=== PATIENT | female | born 1955 | race Caucasian/White ===

== ENCOUNTER 2024-05-10 11:39 | Emergency (ER) | payer MEDICARE, SELFPAY ==
[2024-05-10 11:40] VITALS: BP 159/83; PULSE 97; RESP 18; TEMP 36.4; O2SAT 97; BMI 21.1
[2024-05-10 12:14] LABS: Bacteria 0 SEEN /hpf (None Seen); Mucous, Urine 0 SEEN /hpf (<or=2+); Red Blood Cells-Urine 0 SEEN /hpf (0-5)
[2024-05-10 12:18] LABS: Absolute Lymphocyte Count 2.07 X10^3/uL (0.83-4.51); Basophil# 0.07 X10^3/uL; Basophil% 0.4 % (0-1); Eosinophil# 0.04 X10^3/uL; Eosinophils% 0.2 % (0-5); Hematocrit 36.6 % (37-47); Hemoglobin 12.3 g/dL (12.0-15.0); Lymphocyte # 2.07 X10^3/ul (0.83-4.51); Lymphocyte % 12.5 % (19-41); Mean Corp Hgb Conc 33.6 g/dL (32-36); Mean Corpuscular Hgb 31.8 pg (27.0-32.0); Mean Corpuscular Volume 94.6 fL (81-99); Mean Platelet Vol. 9.6 fl (6.2-12.0); Monocyte# 1.37 X10^3/uL; Monocyte% 8.2 % (0-10); NRBC Flagged by Analyzer 0 % (0-5); Neutrophil # 12.99 X10^3/uL (2.7-7.7); Neutrophil % 78.2 % (47-70); Platelet Count 320 K/mm3 (150-450); RBC Distribution Width CV 12.6 % (11.6-14.6); RBC Distribution Width SD 43.7 fl (35.1-43.9); Red Blood Count 3.87 M/mm3 (4.2-5.4); White Blood Count 16.6 K/mm3 (4.4-11.0)
[2024-05-10 12:19] LABS: Color, Urine Yellow (Yellow); Glucose, Dipstick Normal (Normal); Ketone-Dipstick 15 mg/dl (Negative); Leukocyte Esterase-Dipstick 25 /ul (Negative); Nitrite-Dipstick Negative (Negative); Occult Blood-Urine 10 /ul (Negative); Protein-Dipstick 15 mg/dl (Negative); Urine Bilirubin Dipstick Negative (Negative); Urine Clarity Sl. Cloudy (Clear); Urine Urobilinogen Normal (Normal)
[2024-05-10 12:32] LABS: ALB/GLOB Ratio 0.9 RATIO (0.9-2.4); AST(SGOT) 15 U/L (15-37); Alanine Aminotransfer ALT/SGPT 13 U/L (13-56); Albumin, Serum 3.5 g/dL (3.2-5.0); Alkaline Phosphatase 60 U/L (45-117); Anion Gap 7 (5-15); BUN 16 mg/dL (7-18); BUN/Creat Ratio 20.2 RATIO (10-20); Calcium,Total 9.1 mg/dL (8.5-10.1); Chloride 103 mmol/L (98-107); Creatinine, Serum 0.79 mg/dL (0.55-1.02); EST Glomerular Filtration Rate 76 mL/min (>60); Est Glom Filt Rate - Afr Amer 92 mL/min (>60); Estimated Creatinine Clearance 55.68 ml/min; Globulin 3.8 g/dL (2.2-4.2); Glucose 105 mg/dL (74-106); Potassium 3.7 mmol/L (3.5-5.1); Protein, Total 7.3 g/dL (6.4-8.2); Sodium Level 136 mmol/L (136-145)
[2024-05-10 12:42] LABS: Squamous Epithelial Cells - UA 0-5 SEEN /hpf (5-10); White Blood Cells 0-5 SEEN /hpf (0-5)
--- NOTE | 2024-05-10 13:02 | CT_ITS ---
STUDY: CT ABDOMEN AND PELVIS WITH CONTRAST REASON FOR EXAM: Female, 68 years old. Diffuse abdominal pain. RADIATION DOSAGE (If Supplied By Facility): CTDIvol = ( 9.56 ) mGy, DLP = ( 384.96 ) mGycm TECHNIQUE: Transaxial images were obtained from the dome of the diaphragm to the symphysis pubis without oral contrast. IV 100mL Isovue-370 was administered. Sagittal and coronal images were reconstructed. Individualized dose optimization techniques were used for this CT. COMPARISON: None. FINDINGS: The visualized lung bases are unremarkable. The visualized portions of the heart are within normal limits. Normal liver. Normal gallbladder and extrahepatic biliary system. Normal spleen. Normal pancreas. Normal bilateral adrenal glands. Right renal cysts. A dominant cyst is seen in the lower pole of the right kidney and measures 4.5 cm x 4.3 cm. Small 1 cm cyst in the upper lateral portion of the left kidney. Normal left kidney. Normal visualized stomach. Normal small intestine. Moderate amount of fecal material is seen throughout the colon. The appendix is visualized and appears normal. There is diffuse atherosclerotic calcification of the abdominal aorta and its major visceral branches, without a demonstrated aneurysm. Normal inferior vena cava. Normal retroperitoneum. Distended urinary bladder. Normal abdominal wall. There are diffuse degenerative changes of the visualized lumbar spine. Levoscoliosis. CT/Abdomen/Pelvis W IV Cont ONLY IMPRESSION: Moderate amount of fecal material is seen in the colon. Bilateral renal cysts more prominent on the right side. Electronically Signed: Isra Vásquez MD at 13:33 EDT ,
--- NOTE | 2024-05-10 13:03 | EDS_ITS ---
HPI HPI - GI History of Present Illness Chief Complaint: Abd Pain Narrative Narrative: 68-year-old female presenting with abdominal pain. She points to the lower abdomen in the midline. She states it has been here for several days. She states she has been constipated. She tried a laxative and a home enema and only got this small balls. She states she does not feel sick. She is not nauseous or vomiting. She has not had any fevers. She states that at her job they allow her to take meats and she eats these. She had a steak several days ago prior to the abdominal pain starting. She states it did not smell or taste funny. It was red. She denies any diarrhea, fevers, chills. No black or bloody stools. Her only previous surgery is tubal ligation. [facility] Medical History Hypertension Home Medications ?Medication ?Instructions ?Recorded ?Last Taken ?Type aspirin 81 mg chewable tablet 81 mg PO DAILY@0800 01/08/15 Unknown History azithromycin 250 mg tablet 250 mg PO DAILY ##4 01/08/15 Unknown Rx lisinopril 10 mg tablet 10 mg PO DAILY 01/08/15 Unknown History multivitamin with folic acid 400 1 tab PO DAILY 01/08/15 Unknown History mcg tablet (Thera) Allergy/AdvReac Type Severity Reaction Status Date / Time No Known Allergies Allergy Verified 05/10/24 12:25 Social History Smoking Status: Current every day smoker tobacco type: cigarettes ROS ROS ED Constitutional Constitutional ED: Denies chills, fever(s) or sweats Eyes Eyes: Denies blurry vision or change in vision ENT ENT ED: Denies ear pain or sore throat Cardiovascular Cardiovascular: Denies chest pain, palpitations or racing heartbeat Respiratory/Chest Respiratory/Chest: Denies cough, dyspnea or sputum Gastrointestinal Gastrointestinal: Reports abdominal pain; Denies constipation, diarrhea, nausea or vomiting Genitourinary Genitourinary ED: Denies dysuria, hematuria or urinary frequency Musculoskeletal Musculoskeletal: Denies arthralgias, myalgias or neck pain Integumentary Denies abscess, Abrasions or rash Neurologic Neurologic: Denies headache(s), paresthesias or weakness Psychiatric Psychiatric: Denies anxiety, depression, suicidal ideation or suicidal thoughts Endocrine Endocrinology: Denies polydipsia or polyuria EXAM Physical Exam Const Vital Signs: 05/10/24 11:40 05/10/24 13:39 Temperature 97.6 F L Temperature Source Temporal Pulse Rate 97 76 Respiratory Rate 18 16 Blood Pressure 159/83 H 144/68 H Blood Pressure Mean 108 93 Pulse Ox 97 96 Oxygen Delivery Method Room Air Room Air Positive well nourished General Appearance ED: NAD; Negative for pallor HEENT Reports moist mucous membranes normocephalic and atraumatic Resp normal respiratory effort Cardio regular rate and regular rhythm GI Palpation: tender suprapubic; Negative for guarding, rigid or rebound tenderness present Back/Spine no CVA tenderness Neuro CN's II-XII intact bilaterally Sensorium / Orientation: alert Psych mental status grossly normal Skin General Skin Exam: Negative for jaundice or pallor MDM MDM MDM Narrative Medical decision making narrative: 68-year-old female presenting with abdominal pain patient presenting with right flank pain. Differential includes colitis, diverticulitis, gastritis, constipation, UTI, pyelonephritis, renal calculi, ureteral calculi, bowel obstruction, malignancy, dehydration, electrolyte abnormalities. CBC will be obtained to assess white blood cell count, hemoglobin, platelets. CMP to assess renal function, electrolytes, liver function, glucose. Lipase to assess for p ancreatitis. Urinalysis to assess for UTI. CBC shows leukocytosis of 16.6. Hemoglobin 12.3. Platelets are normal at 320. Renal function electrolytes within normal limits. LFTs are normal. Urinalysis negative for infection. Given the leukocytosis and the abdominal pain I did obtain a CT of the abdomen pelvis which was negative for acute findings other than constipation. Patient counseled on findings. We will give her magnesium citrate for home. Return precautions discussed. Impression: 1. Abdominal pain. 2. Leukocytosis 3. Constipation Lab Data Labs: Laboratory Results - last 24 hr 05/10/24 12:08 WBC 16.6 H RBC 3.87 L Hgb 12.3 Hct 36.6 L MCV 94.6 MCH 31.8 MCHC 33.6 RDW Std Deviation 43.7 RDW Coeff of Nini 12.6 Plt Count 320 MPV 9.6 Immature Gran % (Auto) 0.500 Neut % (Auto) 78.2 H Lymph % (Auto) 12.5 L [place] % (Auto) 8.2 Eos % (Auto) 0.2 Baso % (Auto) 0.4 Absolute Neuts (auto) 13.0 H Absolute Lymphs (auto) 2.07 Nucleated RBC % 0 Sodium 136 Potassium 3.7 Chloride 103 Carbon Dioxide 26.0 Anion Gap 7 BUN 16 Creatinine 0.79 Estim Creat Clear Calc 55.68 Est GFR (MDRD) Af Amer 92 Est GFR (MDRD) Non-Af 76 BUN/Creatinine Ratio 20.2 H Glucose 105 Calcium 9.1 Total Bilirubin 0.40 AST 15 ALT 13 Alkaline Phosphatase 60 Total Protein 7.3 Albumin 3.5 Globulin 3.8 Albumin/Globulin Ratio 0.9 Urine Color Yellow Urine Clarity Sl. Cloudy Urine pH 6.0 Ur Specific [place] 1.010 Urine Protein 15 H Urine Glucose (UA) Normal Urine Ketones 15 H Urine Occult Blood 10 H Urine Nitrite Negative Urine Bilirubin Negative Urine Urobilinogen Normal Ur Leukocyte Esterase 25 H Urine RBC 0 SEEN Urine WBC 0-5 SEEN Ur Squamous Epith Cells 0-5 SEEN Urine Bacteria 0 SEEN Urine Mucus 0 SEEN Radiography Diagnostic Testing: Clinical Impression(s) from Imaging Studies Abdomen/Pelvis CT 05/10/24 13:02 IMPRESSION: Moderate amount of fecal material is seen in the colon. Bilateral renal cysts more prominent on the right side. Electronically Signed: Isra Vásquez MD at 13:33 EDT Reading Location ID and State: [address] [place] [address] , Service support , Discharge Plan Triage Chief Complaint: Abd Pain ED Provider: Luis Alfredo Dx/Rx/DC Orders Instructions: ED Abdominal Pain Unkn Cause Fem, ED Constipation (Adult) Prescriptions: No Action lisinopril 10 MG tablet 10 mg PO DAILY aspirin 81 MG tablet,chewable 81 mg PO DAILY@0800 multivitamin with folic acid [Thera] 1 TABLET tablet 1 tab PO DAILY azithromycin 250 MG tablet 250 mg PO DAILY Qty: 4 0RF Primary Care Provider: Ashley Richardson Referrals: Ashley Richardson MD [Primary Care Provider] - Print Language: [place] African Disposition Disposition: Home, Self Care Discharge Date/Time: 05/10/24 14:19
[2024-05-10 13:39] VITALS: BP 144/68; PULSE 76; RESP 16; O2SAT 96
[2024-05-10] MEDS: Magnesium Citrate 300 ML PO (14:14)
== END 2024-05-10 14:19 | disposition home or self-care (01) ==
PROVIDERS: Emergency Provider Student in an Organized Health Care Education/Training Program; PCP Internal Medicine; Visit Provider Student in an Organized Health Care Education/Training Program
DX: R10.9 Unspecified abdominal pain (principal); D72.829 Elevated white blood cell count, unspecified; K59.00 Constipation, unspecified; I10 Essential (primary) hypertension; F17.210 Nicotine dependence, cigarettes, uncomplicated
CPT/HCPCS: 99283; 74177; 80053; 81001; 85025; J7030; Q9967; A4216

== ENCOUNTER 2024-05-12 10:26 | Inpatient (IN) | payer MEDICARE, SELFPAY ==
[2024-05-12] VITALS (7 sets, daily range): BP systolic 124–159; BP diastolic 62–74; PULSE 65–98; RESP 16–18; TEMP 36.2–37.1; O2SAT 96–100; BMI 20.8; BMI 21.7
--- NOTE | 2024-05-12 10:35 | ED.VIS.GI ---
HPI HPI - GI History of Present Illness Chief Complaint: Abd Pain Informant: patient Abdominal Pain/Flank Pain Onset: Days (2-3) Context: Gradual Onset Timing: Waxes and wanes Quality: Sharp Location: RLQ and LLQ Worsened by: Nothing Relieved by: Nothing Nausea/Vomiting/Emesis GI Symptom: Negative for Nausea or Vomiting Diarrhea/Melena/Hematochezia GI Symptom: Positive for Diarrhea; Negative for Melena or Hematochezia Associated Symptoms Associated Symptoms: Negative for Dysuria, Frequency or Hematuria Narrative Narrative: Patient presents with lower abdominal pain that has been waxing and waning over the past few days. Patient was seen here 2 days ago and was diagnosed with constipation. Patient states she was taking magnesium citrate which has helped with her constipation. Patient states she is now having some diarrhea due to the magnesium citrate. Patient states her pain is mainly over the lower abdomen. Patient states nothing makes it worse and nothing makes it better. Patient describes her pain as sharp. Patient states that sometimes her pain radiates into her back. Patient denies any urinary complaints. [facility] Medical History (Updated 05/12/24 @ 15:[address] Roni Elias DO) Hypertension Home Medications ?Medication ?Instructions ?Recorded ?Last Taken ?Type aspirin 81 mg chewable tablet 81 mg PO DAILY@0800 01/08/15 Unknown History azithromycin 250 mg tablet 250 mg PO DAILY ##4 01/08/15 Unknown Rx lisinopril 10 mg tablet 10 mg PO DAILY 01/08/15 Unknown History multivitamin with folic acid 400 1 tab PO DAILY 01/08/15 Unknown History mcg tablet (Thera) Allergy/AdvReac Type Severity Reaction Status Date / Time No Known Allergies Allergy Verified 05/12/24 10:27 Surgical History (Updated 05/12/24 @ 10:[address] Roni Elias DO) Hx of tubal ligation Social History Smoking Status: Current every day smoker tobacco type: cigarettes ROS ROS ED Constitutional Constitutional ED: Denies chills or fever(s) Eyes Eyes: Denies blurry vision or change in vision ENT ENT ED: Denies rhinorrhea or sore throat Cardiovascular Cardiovascular: Denies chest pain or palpitations Respiratory/Chest Respiratory/Chest: Denies cough or dyspnea Gastrointestinal Gastrointestinal: Reports abdominal pain and diarrhea; Denies melena, nausea or vomiting Genitourinary Genitourinary ED: Denies dysuria or hematuria Musculoskeletal Musculoskeletal: Reports back pain; Denies neck pain Integumentary Denies abscess or rash Neurologic Neurologic: Denies headache(s) or weakness Allergic/Immunologic Allergic/Immunologic ED: Denies mouth swelling or urticaria EXAM Physical Exam Const Vital Signs: 05/12/24 10:27 05/12/24 12:26 05/12/24 14:00 Temperature 97.1 F L Temperature Source Temporal Pulse Rate 98 66 74 Respiratory Rate 18 16 16 Blood Pressure 153/74 H 151/66 H 134/73 H Blood Pressure Mean 100 94 93 Pulse Ox 100 98 97 Oxygen Delivery Method Room Air Room Air Positive well nourished and well developed General Appearance ED: well developed and NAD HEENT Reports moist mucous membranes Neck supple and no JVD Resp normal respiratory effort and clear to auscultation bilaterally Cardio regular rate and regular rhythm GI non-distended Palpation: soft and tender epigastric, LLQ, RLQ, LUQ, RUQ, periumbilical and suprapubic; Negative for guarding or rebound tenderness present Extremity full ROM General Extremety ED: Negative for edema or tenderness General Extremity: Negative for edema Neuro CN's II-XII intact bilaterally, moves all extremities and no sensory deficits noted Sensorium / Orientation: alert Motor Exam: strength 5/5 throughout Psych mental status grossly normal and thought process normal MDM MDM MDM Narrative Medical decision making narrative: Differential diagnosis includes urinary tract infection, ureteral calculus, pyelonephritis, colitis, diverticulitis, pancreatitis, peptic ulcer disease, gastritis, and viral illness. CBC will be obtained to assess for leukocytosis and anemia. Comprehensive metabolic profile will be obtained to assess for hepatic function, renal function, and electrolyte abnormality. Lipase will be obtained to assess for pancreatitis. Urinalysis will be obtained to assess for urinary tract infection and hematuria. Lab Data Attestation: I reviewed the patient's lab results. Lab results narrative: CBC was reviewed. There is a leukocytosis of 20.1. This was increased from previous result. The remainder is within normal limits. Comprehensive metabolic profile was reviewed and was essentially within normal limits. Lipase was reviewed and was normal at 33. Urinalysis was reviewed. There is no evidence of urinary tract infection or hematuria. Labs: Laboratory Results - last 24 hr 05/12/24 05/12/24 10:55 11:28 WBC 20.1 H RBC 4.02 L Hgb 12.7 Hct 37.8 MCV 94.0 MCH 31.6 MCHC 33.6 RDW Std Deviation 43.1 RDW Coeff of Nini 12.3 Plt Count 357 MPV 9.4 Immature Gran % (Auto) 0.700 Neut % (Auto) 79.0 H Lymph % (Auto) 11.5 L [place] % (Auto) 8.2 Eos % (Auto) 0.3 Baso % (Auto) 0.3 Absolute Neuts (auto) 15.8 H Absolute Lymphs (auto) 2.31 Nucleated RBC % 0 Differential Comment Diff Path Review May foll Sodium 135 L Potassium 4.0 Chloride 103 Carbon Dioxide 24.0 Anion Gap 8 BUN 10 Creatinine 0.78 Estim Creat Clear Calc 55.68 Est GFR (MDRD) Af Amer 95 Est GFR (MDRD) Non-Af 78 BUN/Creatinine Ratio 12.9 Glucose 109 H Calcium 8.8 Total Bilirubin 0.40 AST 16 ALT 13 Alkaline Phosphatase 64 Total Protein 6.9 Albumin 3.1 L Globulin 3.8 Albumin/Globulin Ratio 0.8 L Lipase 33 Urine Color Yellow Urine Clarity Clear Urine pH 7.0 Ur Specific [place] 1.005 Urine Protein Negative Urine Glucose (UA) Normal Urine Ketones 15 H Urine Occult Blood Negative Urine Nitrite Negative Urine Bilirubin Negative Urine Urobilinogen Normal Ur Leukocyte Esterase 25 H Urine RBC 0 SEEN Urine WBC 0 SEEN Ur Squamous Epith Cells 0-5 SEEN Urine Bacteria 0 SEEN Urine Mucus 0 SEEN Radiography Diagnostic Testing: Clinical Impression(s) from Imaging Studies Abdomen/Pelvis CT 05/12/24 14:10 IMPRESSION: Findings in keeping with a sigmoid diverticulitis with increased markings within the surrounding peritoneal fat and possible localized fluid-filled bowel loop with diverticula in the rectosigmoid junction. Localized abscess cannot be excluded. This is not accessible percutaneously due to the surrounding presence of bowel loops. Follow-up recommended. No evidence of free fluid. Electronically Signed: Isra Vásquez MD at 14:32 EDT , CT scan of the abdomen pelvis was obtained. There is sigmoid diverticulitis. There is a 2 x 3.6 cm fluid collection within a diverticulum within the rectosigmoid junction. This may represent an abscess. There is no perforation noted. This was interpreted by the radiologist was also independently reviewed by myself. Treatment and Re-Evaluation :: Patient was given IV fluids, morphine, and Zofran. Patient was feeling better on reevaluation. Patient was advised of her findings. Case was discussed with Dr. Liao from general surgery. He recommended starting the patient on Zosyn. This was ordered. He will admit the patient to his service. Patient understood and was agreeable with the plan. All questions were answered. Discharge Plan Triage Chief Complaint: Abd Pain ED Provider: Roni Elias Dx/Rx/DC Orders Clinical Impression: Sigmoid diverticulitis, Abdominal pain, Tobacco use Prescriptions: No Action lisinopril 10 MG tablet 10 mg PO DAILY aspirin 81 MG tablet,chewable 81 mg PO DAILY@0800 multivitamin with folic acid [Thera] 1 TABLET tablet 1 tab PO DAILY azithromycin 250 MG tablet 250 mg PO DAILY Qty: 4 0RF Primary Care Provider: Ashley Richardson Referrals: Ashley Richardson MD [Primary Care Provider] - Print Language: Lithuanian Disposition Disposition: Acute Care [facility]
[2024-05-12 11:04] LABS: Absolute Lymphocyte Count 2.31 X10^3/uL (0.83-4.51); Absolute Neutrophil Count 15.8 X10^3/uL (2.0-7.7); Basophil# 0.07 X10^3/uL; Basophil% 0.3 % (0-1); Eosinophil# 0.07 X10^3/uL; Eosinophils% 0.3 % (0-5); Hematocrit 37.8 % (37-47); Hemoglobin 12.7 g/dL (12.0-15.0); Lymphocyte # 2.31 X10^3/ul (0.83-4.51); Lymphocyte % 11.5 % (19-41); Mean Corp Hgb Conc 33.6 g/dL (32-36); Mean Corpuscular Hgb 31.6 pg (27.0-32.0); Mean Platelet Vol. 9.4 fl (6.2-12.0); Monocyte# 1.64 X10^3/uL; Monocyte% 8.2 % (0-10); NRBC Flagged by Analyzer 0 % (0-5); Neutrophil # 15.83 X10^3/uL (2.7-7.7); POSITIVE DIFFERENTIAL YES; Platelet Count 357 K/mm3 (150-450); RBC Distribution Width CV 12.3 % (11.6-14.6); RBC Distribution Width SD 43.1 fl (35.1-43.9); Red Blood Count 4.02 M/mm3 (4.2-5.4); White Blood Count 20.1 K/mm3 (4.4-11.0)
[2024-05-12] MEDS: Ibuprofen 600 MG Tablet PO (11:07)
[2024-05-12 11:08] LABS: Differential Indicated SCAN CRITERIA MET
[2024-05-12] MEDS: 0.9% Normal Saline (1000mL) 1,000 ML 999 ML IV (11:08)
[2024-05-12 11:24] LABS: ALB/GLOB Ratio 0.8 RATIO (0.9-2.4); AST(SGOT) 16 U/L (15-37); Alanine Aminotransfer ALT/SGPT 13 U/L (13-56); Albumin, Serum 3.1 g/dL (3.2-5.0); Alkaline Phosphatase 64 U/L (45-117); Anion Gap 8 (5-15); BUN 10 mg/dL (7-18); BUN/Creat Ratio 12.9 RATIO (10-20); Calcium,Total 8.8 mg/dL (8.5-10.1); Chloride 103 mmol/L (98-107); Creatinine, Serum 0.78 mg/dL (0.55-1.02); EST Glomerular Filtration Rate 78 mL/min (>60); Est Glom Filt Rate - Afr Amer 95 mL/min (>60); Estimated Creatinine Clearance 55.68 ml/min; Globulin 3.8 g/dL (2.2-4.2); Glucose 109 mg/dL (74-106); Lipase 33 U/L (13-75); Protein, Total 6.9 g/dL (6.4-8.2); Sodium Level 135 mmol/L (136-145)
[2024-05-12 11:35] LABS: Bacteria 0 SEEN /hpf (None Seen); Mucous, Urine 0 SEEN /hpf (<or=2+); Red Blood Cells-Urine 0 SEEN /hpf (0-5); White Blood Cells 0 SEEN /hpf (0-5)
[2024-05-12 11:36] LABS: Color, Urine Yellow (Yellow); Glucose, Dipstick Normal (Normal); Ketone-Dipstick 15 mg/dl (Negative); Leukocyte Esterase-Dipstick 25 /ul (Negative); Nitrite-Dipstick Negative (Negative); Occult Blood-Urine Negative /ul (Negative); Protein-Dipstick Negative (Negative); Specific Gravity, Urine 1.005 (1.002-1.030); Urine Bilirubin Dipstick Negative (Negative); Urine Clarity Clear (Clear); Urine Urobilinogen Normal (Normal)
[2024-05-12 11:43] LABS: Squamous Epithelial Cells - UA 0-5 SEEN /hpf (5-10)
--- NOTE | 2024-05-12 14:10 | CT_ITS ---
STUDY: CT ABDOMEN AND PELVIS WITH CONTRAST REASON FOR EXAM: Female, 68 years old. Abdominal pain, leukocytosis -- IV PO Contrast RADIATION DOSAGE (If Supplied By Facility): CTDIvol = ( 8.81 ) mGy, DLP = ( 368.40 ) mGycm TECHNIQUE: Transaxial images were obtained from the dome of the diaphragm to the symphysis pubis with oral contrast. Oral and amp; IV Gastrografin and amp; 100mL Isovue-300 was administered. Sagittal and coronal images were reconstructed. Individualized dose optimization techniques were used for this CT. COMPARISON: Comparison is made with prior study dated May 10, 2024. FINDINGS: The visualized lung bases are unremarkable. The visualized portions of the heart are within normal limits. Normal liver. Small amount of sludge is seen in the gallbladder lumen. Normal spleen. Normal pancreas. Normal bilateral adrenal glands. Stable 4.5 cm x 6.3 cm cyst in the right kidney. Normal left kidney. Normal visualized stomach. Normal small intestine. There now is evidence of diffuse bowel wall thickening of the sigmoid colon in keeping with sigmoid diverticulitis. Increased markings are seen in the surrounding fat. There is a 2 cm x 3.6 cm fluid collection within a diverticulum in the rectosigmoid junction. This may represent bilateral fluid within a diverticulum. Evidence of diverticular changes The appendix is visualized and appears normal. There is atherosclerotic calcification of the abdominal aorta and its major visceral branches, without a demonstrated aneurysm. Normal inferior vena cava. Normal retroperitoneum. Normal urinary bladder. Normal abdominal wall. There are diffuse degenerative changes of the visualized lumbar spine. CT/Abdomen/Pelvis WITH Contrast IMPRESSION: Findings in keeping with a sigmoid diverticulitis with increased markings within the surrounding peritoneal fat and possible localized fluid-filled bowel loop with diverticula in the rectosigmoid junction. Localized abscess cannot be excluded. This is not accessible percutaneously due to the surrounding presence of bowel loops. Follow-up recommended. No evidence of free fluid. Electronically Signed: Isra Vásquez MD at 14:32 EDT ,
--- NOTE | 2024-05-12 16:18 | HP.PCM.SX_ITS ---
HPI - General HPI Narrative EDA ARREOLA, is a 68 F who presents with abdominal pain of 1 week duration. Patient reports she started having lower abdominal pain a week ago. She was in the emergency room on Wednesday and she was told she had constipation. She tried magnesium citrate at home and over the last 2 days her pain has gotten worse. She denies fevers or chills or nausea or vomiting. She has never had diverticulitis in the past. She has not had a colonoscopy but she does do Cologuard and had 1 last year. REPLACED BY [facility] Medical History (Updated 05/12/24 @ 16:[address] Mariusz Liao MD) Hypertension Home Medications ?Medication ?Instructions ?Recorded ?Last Taken ?Type lisinopril 10 mg tablet 10 mg PO DAILY 01/08/15 05/12/24 History multivitamin with folic acid 400 1 tab PO DAILY 01/08/15 05/11/24 History mcg tablet (Thera) calcium carbonate 600 mg-vitamin 1 cap PO DAILY 05/12/24 05/11/24 History D3 12.5 mcg (500 unit) capsule (Calcium 600 with Vitamin D3) fexofenadine 180 mg tablet 180 mg PO DAILY 05/12/24 05/11/24 History (Winter Allergy) Allergy/AdvReac Type Severity Reaction Status Date / Time No Known Allergies Allergy Verified 05/12/24 10:27 Surgical History (Updated 05/12/24 @ 10:[address] Roni Elias DO) Hx of tubal ligation Social History Smoking Status: Current every day smoker tobacco type: cigarettes ROS Constitutional Constitutional: Reports anorexia; Denies chills, fatigue or fever(s) Eyes Eyes: Denies blurry vision ENT HEENT: Denies abnormal hearing Cardiovascular Cardiovascular: Denies chest pain or chest pain at rest Respiratory/Chest Respiratory/Chest: Denies cough or dyspnea Gastrointestinal Gastrointestinal: Reports abdominal pain and constipation; Denies diarrhea, dysphagia or vomiting Genitourinary Genitourinary: Denies change in urinary stream Musculoskeletal Musculoskeletal: Denies abnormal gait or back pain Integumentary Integumentary: Denies jaundice or new lesions Neurologic Neurologic: Denies abnormal gait or dizziness Psychiatric Psychiatric: Denies depression Endocrine Endocrinology: Denies flushing Hematologic/Lymphatic Hematologic/Lymphatic: Denies easy bleeding Vital Signs Vital Signs Vital Signs: 05/12/24 10:27 05/12/24 12:26 05/12/24 14:00 Temperature 97.1 F L Temperature Source Temporal Pulse Rate 98 66 74 Respiratory Rate 18 16 16 Blood Pressure 153/74 H 151/66 H 134/73 H Blood Pressure Mean 100 94 93 Pulse Ox 100 98 97 Oxygen Delivery Method Room Air Room Air Weight Weight: 117 lb 9.6 oz Body Mass Index (BMI) 20.8 Physical Exam Const oriented x3 and no apparent distress Resp normal respiratory effort Cardio regular rate and regular rhythm GI soft to palpation Palpation: tender suprapubic Extremity normal to inspection Results Lab / Micro Data 05/12/24 10:55 05/12/24 10:55 Labs: Laboratory Results - last 24 hr 05/12/24 10:55: WBC 20.1 H, RBC 4.02 L, Hgb 12.7, Hct 37.8, MCV 94.0, MCH 31.6, MCHC 33.6, RDW Std Deviation 43.1, RDW Coeff of Nini 12.3, Plt Count 357, MPV 9.4, Immature Gran % (Auto) 0.700, Neut % (Auto) 79.0 H, Lymph % (Auto) 11.5 L, [place] % (Auto) 8.2, Eos % (Auto) 0.3, Baso % (Auto) 0.3, Absolute Neuts (auto) 15.8 H, Absolute Lymphs (auto) 2.31, Nucleated RBC % 0, Differential Comment , Diff Path Review March, Sodium 135 L, Potassium 4.0, Chloride 103, Carbon Dioxide 24.0, Anion Gap 8, BUN 10, Creatinine 0.78, Estim Creat Clear Calc 55.68, Est GFR (MDRD) Af Amer 95, Est GFR (MDRD) Non-Af 78, BUN/Creatinine Ratio 12.9, Glucose 109 H, Calcium 8.8, Total Bilirubin 0.40, AST 16, ALT 13, Alkaline Phosphatase 64, Total Protein 6.9, Albumin 3.1 L, Globulin 3.8, Albumin/Globulin Ratio 0.8 L, Lipase 33 05/12/24 11:28: Urine Color Yellow, Urine Clarity Clear, Urine pH 7.0, Ur Specific [place] 1.005, Urine Protein Negative, Urine Glucose (UA) Normal, Urine Ketones 15 H, Urine Occult Blood Negative, Urine Nitrite Negative, Urine Bilirubin Negative, Urine Urobilinogen Normal, Ur Leukocyte Esterase 25 H, Urine RBC 0 SEEN, Urine WBC 0 SEEN, Ur Squamous Epith Cells 0-5 SEEN, Urine Bacteria 0 SEEN, Urine Mucus 0 SEEN Imaging Radiology Impression Abdomen/Pelvis CT 05/12/24 14:10 IMPRESSION: Findings in keeping with a sigmoid diverticulitis with increased markings within the surrounding peritoneal fat and possible localized fluid-filled bowel loop with diverticula in the rectosigmoid junction. Localized abscess cannot be excluded. This is not accessible percutaneously due to the surrounding presence of bowel loops. Follow-up recommended. No evidence of free fluid. Electronically Signed: Isra Vásquez MD at 14:32 EDT , Assessment & Plan Assessment/Plan (1) Diverticulitis of intestine with abscess: QUALIFIERS: Diverticulitis site: large intestine Diverticulitis bleeding: without bleeding Qualified Code(s): K57.20 - Diverticulitis of large intestine with perforation and abscess without bleeding PLAN: The patient is a 68-year-old female who presents with abdominal pain. She had a CT scan 2 days ago and another 1 today. Her white count was 16 2 days ago and is now 20. CT today reveals diverticulitis of the sigmoid colon with abscess. Reviewing the CT scan I do see the fluid collection on the old CT and it appears to have grown. It appears to be about 3 to 4 cm. I believe this may be able to be treated with antibiotics as it is not able to be percutaneously drained. I will admit the patient antibiotics and IV fluids and keep her n.p.o. until her pain resolves. I discussed this with her in detail. I also discussed surgery if necessary. I discussed possibility of having to do a sigmoid colectomy with colostomy if she perforates or become septic. Currently she is mildly tender in the suprapubic area with no guarding or rebound and afebrile. Mariusz Liao MD Pager: [facility] [address] [place] [address], [address] [place] [address] Office:
[2024-05-12] MEDS: Piperacil/Tazobactam 4.5 GM in 0.9% Normal Saline (100mL MB+) 100 ML IV (16:22)
[2024-05-12] MEDS: 0.9% Normal Saline (1000mL) 1,000 ML 125 ML IV (17:15)
[2024-05-12] MEDS: Ketorolac 15 MG/ML Vial IV (17:15)
[2024-05-12] MEDS: 0.9% Saline Lock 10 ML Syringe IV (17:19)
[2024-05-12] MEDS: 0.9% Normal Saline (250mL Bag) 250 ML 15 ML IV (21:23)
[2024-05-12] MEDS: Piperacil/Tazobactam 3.375 GM in 0.9% Normal Saline (50mL MB+) 50 ML IV (21:23)
[2024-05-13] MEDS: 0.9% Normal Saline (1000mL) 1,000 ML 125 ML IV (00:54)
[2024-05-13] MEDS: Ketorolac 15 MG/ML Vial IV ×2 (01:13→22:02)
[2024-05-13 02:05] VITALS: BP 124/71; PULSE 67; RESP 16; TEMP 36.7; O2SAT 95
[2024-05-13] MEDS: Piperacil/Tazobactam 3.375 GM in 0.9% Normal Saline (50mL MB+) 50 ML IV ×3 (05:11→22:02)
[2024-05-13] MEDS: Morphine 2 MG/ML Syringe IV (05:12)
[2024-05-13 08:00] VITALS: BP 125/63; PULSE 82; RESP 18; TEMP 36.6; O2SAT 96
[2024-05-13 08:07] LABS: Absolute Lymphocyte Count 1.75 X10^3/uL (0.83-4.51); Absolute Neutrophil Count 14.7 X10^3/uL (2.0-7.7); Basophil# 0.07 X10^3/uL; Basophil% 0.4 % (0-1); Eosinophil# 0.07 X10^3/uL; Eosinophils% 0.4 % (0-5); Hematocrit 35.6 % (37-47); Hemoglobin 11.3 g/dL (12.0-15.0); Lymphocyte # 1.75 X10^3/ul (0.83-4.51); Lymphocyte % 9.7 % (19-41); Mean Corp Hgb Conc 31.7 g/dL (32-36); Mean Corpuscular Hgb 31.5 pg (27.0-32.0); Mean Corpuscular Volume 99.2 fL (81-99); Mean Platelet Vol. 10.2 fl (6.2-12.0); Monocyte# 1.47 X10^3/uL; Monocyte% 8.1 % (0-10); NRBC Flagged by Analyzer 0 % (0-5); Neutrophil # 14.65 X10^3/uL (2.7-7.7); Neutrophil % 80.9 % (47-70); Platelet Count 343 K/mm3 (150-450); RBC Distribution Width CV 12.2 % (11.6-14.6); RBC Distribution Width SD 44.5 fl (35.1-43.9); Red Blood Count 3.59 M/mm3 (4.2-5.4); White Blood Count 18.1 K/mm3 (4.4-11.0)
[2024-05-13 08:34] LABS: Anion Gap 8 (5-15); BUN 10 mg/dL (7-18); BUN/Creat Ratio 16.6 RATIO (10-20); Chloride 111 mmol/L (98-107); EST Glomerular Filtration Rate 105 mL/min (>60); Est Glom Filt Rate - Afr Amer 127 mL/min (>60); Estimated Creatinine Clearance 53.23 ml/min; Glucose 58 mg/dL (74-106); Magnesium 2.1 mg/dL (1.6-2.6); Phosphorus 3.4 mg/dL (2.5-4.9); Sodium Level 139 mmol/L (136-145)
--- NOTE | 2024-05-13 08:51 | PCM.PN.SRG ---
Subjective Subjective Patient reports she did have a liquid bowel movement but it did hurt to have a bowel movement. She is passing some flatus. She denies nausea or vomiting or fevers or chills. She says the pain is a little bit improved from yesterday. Objective Data Objective Data Vital Signs: Vital Signs Temp Pulse Resp BP Pulse Ox O2 Del Method 98.1 F 67 16 124/71 H 95 Room Air 05/13/24 02:05 05/13/24 02:05 05/13/24 02:05 05/13/24 02:05 05/13/24 02:05 05/13/24 02:05 Oxygen Delivery Method Room Air Weight: 119 lb Body Mass Index (BMI) 21.7 Intake & Output: Intake and Output for Last 24 Hours 05/11/24 05/12/24 05/13/24 23:59 23:59 23:59 Intake Total 1100.5 / 1100.5 1006.25 / 1006.25 Balance 1100.5 / 1100.5 1006.25 / 1006.25 Lab / Micro Data 05/13/24 06:25 05/13/24 06:25 Labs: Laboratory Results - last 24 hr 05/12/24 10:55: WBC 20.1 H, RBC 4.02 L, Hgb 12.7, Hct 37.8, MCV 94.0, MCH 31.6, MCHC 33.6, RDW Std Deviation 43.1, RDW Coeff of Nini 12.3, Plt Count 357, MPV 9.4, Immature Gran % (Auto) 0.700, Neut % (Auto) 79.0 H, Lymph % (Auto) 11.5 L, [place] % (Auto) 8.2, Eos % (Auto) 0.3, Baso % (Auto) 0.3, Absolute Neuts (auto) 15.8 H, Absolute Lymphs (auto) 2.31, Nucleated RBC % 0, Differential Comment , Diff Path Review March, Sodium 135 L, Potassium 4.0, Chloride 103, Carbon Dioxide 24.0, Anion Gap 8, BUN 10, Creatinine 0.78, Estim Creat Clear Calc 55.68, Est GFR (MDRD) Af Amer 95, Est GFR (MDRD) Non-Af 78, BUN/Creatinine Ratio 12.9, Glucose 109 H, Calcium 8.8, Total Bilirubin 0.40, AST 16, ALT 13, Alkaline Phosphatase 64, Total Protein 6.9, Albumin 3.1 L, Globulin 3.8, Albumin/Globulin Ratio 0.8 L, Lipase 33 05/12/24 11:28: Urine Color Yellow, Urine Clarity Clear, Urine pH 7.0, Ur Specific [place] 1.005, Urine Protein Negative, Urine Glucose (UA) Normal, Urine Ketones 15 H, Urine Occult Blood Negative, Urine Nitrite Negative, Urine Bilirubin Negative, Urine Urobilinogen Normal, Ur Leukocyte Esterase 25 H, Urine RBC 0 SEEN, Urine WBC 0 SEEN, Ur Squamous Epith Cells 0-5 SEEN, Urine Bacteria 0 SEEN, Urine Mucus 0 SEEN 05/13/24 06:25: WBC 18.1 H, RBC 3.59 L, Hgb 11.3 L, Hct 35.6 L, MCV 99.2 H D, MCH 31.5, MCHC 31.7 L D, RDW Std Deviation 44.5 H, RDW Coeff of Nini 12.2, Plt Count 343, MPV 10.2, Immature Gran % (Auto) 0.500, Neut % (Auto) 80.9 H, Lymph % (Auto) 9.7 L, [place] % (Auto) 8.1, Eos % (Auto) 0.4, Baso % (Auto) 0.4, Absolute Neuts (auto) 14.7 H, Absolute Lymphs (auto) 1.75, Nucleated RBC % 0, Sodium 139, Potassium 4.0, Chloride 111 H, Carbon Dioxide 20.0 L, Anion Gap 8, BUN 10, Creatinine 0.60, Estim Creat Clear Calc 53.23, Est GFR (MDRD) Af Amer 127, Est GFR (MDRD) Non-Af 105, BUN/Creatinine Ratio 16.6, Glucose 58 L, Calcium 8.0 L, Phosphorus 3.4, Magnesium 2.1 Radiography Diagnostic Testing: Radiology Impression Abdomen/Pelvis CT 05/12/24 14:10 IMPRESSION: Findings in keeping with a sigmoid diverticulitis with increased markings within the surrounding peritoneal fat and possible localized fluid-filled bowel loop with diverticula in the rectosigmoid junction. Localized abscess cannot be excluded. This is not accessible percutaneously due to the surrounding presence of bowel loops. Follow-up recommended. No evidence of free fluid. Electronically Signed: Isra Vásquez MD at 14:32 EDT , Physical Exam Const oriented x3 and no apparent distress Resp normal respiratory effort GI soft to palpation Palpation: tender suprapubic Extremity normal to inspection Assessment & Plan Assessment/Plan (1) Diverticulitis of intestine with abscess: QUALIFIERS: Diverticulitis site: large intestine Diverticulitis bleeding: without bleeding Qualified Code(s): K57.20 - Diverticulitis of large intestine with perforation and abscess without bleeding PLAN: Patient continues to have suprapubic pain but her abdomen is soft and there is no guarding or rebound tenderness. Her white count is slowly coming down. Continue antibiotics and IV fluids with n.p.o. status. Mariusz Liao MD Pager: [facility] [address] [place] [address], [address] [place] [address] Office:
[2024-05-13 09:18] LABS: Bedside Glucose 50 mg/dL (74-106)
[2024-05-13] MEDS: Dextrose 5%/0.9% NaCl 1,000 ML 125 ML IV ×2 (09:20→18:10)
--- NOTE | 2024-05-13 10:00 | CASEMGMT ---
RN?CM?DECONTAMINATOR?CM?to room to meet with patient for initial transition planning/care coordination?assessment.?RN?CM?introduced self and role at [facility].? Pt voices understanding and consents to?assessment?at this time.? Pt resting in bed in no distress at this time.? Pt is A/O at this time and answers all questions appropriately.?? Care providers, pharmacy, and demographics verified/updated at this time. PCP: Dr Richardson Specialists: none Preferred Pharmacy: [facility] [place] [facility] [place] Insurance: [facility] Prescription Benefit:?yes Living Will/HPOA:?Has completed LW and HCPOA, who is her son, Zohaib Arora. Pt states may be able to have these documents brought in to be placed on file. LNOK: SonZohaib. DILLisa Living Arrangements: Lives alone in one-story home w/one step to enter. Independent. Works full-time @ [employer]. Transportation:?Pt states drives self and states no transportation concerns at this time.? DME: ? Denies using any DME and denies needs. She does have a BP machine available. HHC/SNF: No hx of either. Denies need for HHC or OP therapy and no needs identified. Pt wishes to return home and states has no concerns with going home at time of discharge.? PLAN:??Home Ron ESCAMILLAN?RN?CM
[2024-05-13 11:58] LABS: Bedside Glucose 107 mg/dL (74-106)
[2024-05-13] MEDS: 0.9% Saline Lock 10 ML Syringe IV (12:13)
[2024-05-13] MEDS: Morphine 4 MG/ML Syringe IV (12:14)
[2024-05-13] MEDS: Pantoprazole Sodium 40 MG Tablet PO (12:31)
[2024-05-13] MEDS: Enoxaparin 40 MG/0.4 ML Syringe SC (12:31)
[2024-05-13] MEDS: Lisinopril 10 MG Tablet PO (12:31)
[2024-05-13 14:23] VITALS: BP 114/82; PULSE 78; RESP 18; TEMP 36.8; O2SAT 98
[2024-05-13 17:23] LABS: Bedside Glucose 107 mg/dL (74-106)
[2024-05-13 18:09] LABS: Bedside Glucose 118 mg/dL (74-106)
[2024-05-13 21:49] VITALS: BP 129/82; PULSE 69; RESP 18; TEMP 36.8; O2SAT 93
[2024-05-13 22:25] LABS: Bedside Glucose 126 mg/dL (74-106)
[2024-05-14] MEDS: Dextrose 5%/0.9% NaCl 1,000 ML 125 ML IV ×3 (00:50→16:52)
[2024-05-14 04:05] VITALS: BP 129/64; PULSE 74; RESP 18; TEMP 36.4; O2SAT 96
[2024-05-14] MEDS: Ketorolac 15 MG/ML Vial IV (06:30)
[2024-05-14] MEDS: Piperacil/Tazobactam 3.375 GM in 0.9% Normal Saline (50mL MB+) 50 ML IV ×3 (06:30→21:26)
--- NOTE | 2024-05-14 06:49 | PCM.PN.SRG ---
Subjective Subjective Patient reports she is feeling much better. She had a liquid bowel movement overnight. She says that her pain is changed from sharp to more of a dull cramping and has moved upward. She denies nausea or vomiting or fevers or chills overnight. Objective Data Objective Data Vital Signs: Vital Signs Temp Pulse Resp BP Pulse Ox O2 Del Method 97.6 F L 74 18 129/64 H 96 Room Air 05/14/24 04:05 05/14/24 04:05 05/14/24 04:05 05/14/24 04:05 05/14/24 04:05 05/14/24 04:05 Oxygen Delivery Method Room Air Weight: 119 lb 0.794 oz Body Mass Index (BMI) 21.7 Intake & Output: Intake and Output for Last 24 Hours 05/12/24 05/13/24 05/14/24 23:59 23:59 23:59 Intake Total 1100.5 / 1100.5 3545.00 / 3665.00 1003.33 / 1003.33 Balance 1100.5 / 1100.5 3545.00 / 3665.00 1003.33 / 1003.33 Lab / Micro Data 05/13/24 06:25 05/13/24 06:25 Labs: Laboratory Results - last 24 hr 05/13/24 06:25: WBC 18.1 H, RBC 3.59 L, Hgb 11.3 L, Hct 35.6 L, MCV 99.2 H D, MCH 31.5, MCHC 31.7 L D, RDW Std Deviation 44.5 H, RDW Coeff of Nini 12.2, Plt Count 343, MPV 10.2, Immature Gran % (Auto) 0.500, Neut % (Auto) 80.9 H, Lymph % (Auto) 9.7 L, [place] % (Auto) 8.1, Eos % (Auto) 0.4, Baso % (Auto) 0.4, Absolute Neuts (auto) 14.7 H, Absolute Lymphs (auto) 1.75, Nucleated RBC % 0, Sodium 139, Potassium 4.0, Chloride 111 H, Carbon Dioxide 20.0 L, Anion Gap 8, BUN 10, Creatinine 0.60, Estim Creat Clear Calc 53.23, Est GFR (MDRD) Af Amer 127, Est GFR (MDRD) Non-Af 105, BUN/Creatinine Ratio 16.6, Glucose 58 L, Calcium 8.0 L, Phosphorus 3.4, Magnesium 2.1 05/13/24 08:55: POC Glucose 50 L 05/13/24 11:30: POC Glucose 107 H 05/13/24 17:04: POC Glucose 107 H 05/13/24 17:50: POC Glucose 118 H 05/13/24 22:06: POC Glucose 126 H Physical Exam Const oriented x3 and no apparent distress Resp normal respiratory effort Cardio regular rate and regular rhythm GI soft to palpation Palpation: tender suprapubic Assessment & Plan Assessment/Plan (1) Diverticulitis of intestine with abscess: QUALIFIERS: Diverticulitis site: large intestine Diverticulitis bleeding: without bleeding Qualified Code(s): K57.20 - Diverticulitis of large intestine with perforation and abscess without bleeding PLAN: Patient reports improvement in pain. Awaiting morning labs. Continue antibiotics and n.p.o. I will plan for CT scan tomorrow to evaluate. Mariusz Liao MD Pager: [facility] [address] [place] [address], [address] [place] [address] Office:
[2024-05-14 06:50] LABS: Bedside Glucose 118 mg/dL (74-106)
[2024-05-14 07:29] LABS: Absolute Lymphocyte Count 1.56 X10^3/uL (0.83-4.51); Absolute Neutrophil Count 12.7 X10^3/uL (2.0-7.7); Basophil# 0.05 X10^3/uL; Basophil% 0.3 % (0-1); Eosinophil# 0.09 X10^3/uL; Eosinophils% 0.6 % (0-5); Hematocrit 34.4 % (37-47); Hemoglobin 10.9 g/dL (12.0-15.0); Lymphocyte # 1.56 X10^3/ul (0.83-4.51); Lymphocyte % 9.8 % (19-41); Mean Corp Hgb Conc 31.7 g/dL (32-36); Mean Corpuscular Hgb 31.5 pg (27.0-32.0); Mean Corpuscular Volume 99.4 fL (81-99); Monocyte% 9.4 % (0-10); NRBC Flagged by Analyzer 0 % (0-5); Neutrophil # 12.65 X10^3/uL (2.7-7.7); Neutrophil % 79.3 % (47-70); Platelet Count 349 K/mm3 (150-450); RBC Distribution Width CV 12.5 % (11.6-14.6); RBC Distribution Width SD 45.5 fl (35.1-43.9); Red Blood Count 3.46 M/mm3 (4.2-5.4)
[2024-05-14 08:00] VITALS: BP 117/61; PULSE 68; RESP 18; TEMP 37; O2SAT 96
[2024-05-14 08:00] LABS: Anion Gap 4 (5-15); BUN 7 mg/dL (7-18); BUN/Creat Ratio 10.8 RATIO (10-20); Calcium,Total 8.1 mg/dL (8.5-10.1); Chloride 113 mmol/L (98-107); Creatinine, Serum 0.65 mg/dL (0.55-1.02); EST Glomerular Filtration Rate 96 mL/min (>60); Est Glom Filt Rate - Afr Amer 116 mL/min (>60); Estimated Creatinine Clearance 53.23 ml/min; Glucose 123 mg/dL (74-106); Potassium 3.4 mmol/L (3.5-5.1); Sodium Level 139 mmol/L (136-145)
[2024-05-14] MEDS: Enoxaparin 40 MG/0.4 ML Syringe SC (08:20)
[2024-05-14] MEDS: Pantoprazole Sodium 40 MG Tablet PO (08:20)
[2024-05-14] MEDS: Lisinopril 10 MG Tablet PO (08:20)
[2024-05-14] MEDS: Morphine 2 MG/ML Syringe IV ×2 (09:32→21:30)
[2024-05-14] MEDS: 0.9% Saline Lock 10 ML Syringe IV ×2 (09:33→15:40)
[2024-05-14 12:11] LABS: Bedside Glucose 115 mg/dL (74-106)
[2024-05-14] MEDS: Morphine 4 MG/ML Syringe IV (15:39)
[2024-05-14] MEDS: Acetaminophen 325 MG Tablet 650 MG PO (15:39)
[2024-05-14 15:42] VITALS: BP 140/69; PULSE 84; RESP 18; TEMP 37.7; O2SAT 98
[2024-05-14 17:00] VITALS: TEMP 37.1
[2024-05-14 21:22] VITALS: BP 134/94; PULSE 73; RESP 18; TEMP 36.9; O2SAT 93
[2024-05-15] VITALS (14 sets, daily range): BP systolic 111–158; BP diastolic 65–97; PULSE 67–106; RESP 14–20; TEMP 36.7–37.3; O2SAT 92–100; BMI 21.7
[2024-05-15] MEDS: Dextrose 5%/0.9% NaCl 1,000 ML 125 ML IV ×2 (00:17→08:16)
[2024-05-15] MEDS: Acetaminophen 325 MG Tablet 650 MG PO (00:20)
[2024-05-15 00:41] LABS: Bedside Glucose 129 mg/dL (74-106)
[2024-05-15] MEDS: Piperacil/Tazobactam 3.375 GM in 0.9% Normal Saline (50mL MB+) 50 ML IV ×3 (05:56→22:12)
[2024-05-15 06:10] LABS: Absolute Lymphocyte Count 1.81 X10^3/uL (0.83-4.51); Absolute Neutrophil Count 14.8 X10^3/uL (2.0-7.7); Basophil# 0.06 X10^3/uL; Basophil% 0.3 % (0-1); Eosinophil# 0.12 X10^3/uL; Eosinophils% 0.7 % (0-5); Hematocrit 34.3 % (37-47); Hemoglobin 10.8 g/dL (12.0-15.0); Lymphocyte # 1.81 X10^3/ul (0.83-4.51); Lymphocyte % 9.8 % (19-41); Mean Corp Hgb Conc 31.5 g/dL (32-36); Mean Corpuscular Hgb 31.4 pg (27.0-32.0); Mean Corpuscular Volume 99.7 fL (81-99); Mean Platelet Vol. 9.8 fl (6.2-12.0); Monocyte# 1.52 X10^3/uL; Monocyte% 8.3 % (0-10); NRBC Flagged by Analyzer 0 % (0-5); Neutrophil # 14.75 X10^3/uL (2.7-7.7); Neutrophil % 80.2 % (47-70); POSITIVE DIFFERENTIAL YES; Platelet Count 351 K/mm3 (150-450); RBC Distribution Width CV 12.4 % (11.6-14.6); RBC Distribution Width SD 45.2 fl (35.1-43.9); Red Blood Count 3.44 M/mm3 (4.2-5.4); White Blood Count 18.4 K/mm3 (4.4-11.0)
[2024-05-15 06:15] LABS: Differential Indicated SCAN CRITERIA MET
[2024-05-15 06:27] LABS: Anion Gap 5 (5-15); BUN 6 mg/dL (7-18); BUN/Creat Ratio 10.4 RATIO (10-20); Calcium,Total 8.3 mg/dL (8.5-10.1); Chloride 116 mmol/L (98-107); Creatinine, Serum 0.58 mg/dL (0.55-1.02); EST Glomerular Filtration Rate 110 mL/min (>60); Est Glom Filt Rate - Afr Amer 133 mL/min (>60); Estimated Creatinine Clearance 53.23 ml/min; Glucose 113 mg/dL (74-106); Potassium 3.5 mmol/L (3.5-5.1); Sodium Level 142 mmol/L (136-145)
[2024-05-15 06:32] LABS: Bedside Glucose 110 mg/dL (74-106)
[2024-05-15] MEDS: Morphine 2 MG/ML Syringe IV ×2 (06:53→10:42)
--- NOTE | 2024-05-15 08:00 | CT_ITS ---
We are attempting to reach an attending provider to discuss findings. An addendum with communication details will be sent when the communication is complete. STUDY: CT ABDOMEN AND PELVIS WITH CONTRAST REASON FOR EXAM: Female, 68 years old. follow up diverticular abscess -- PO and IV contrast RADIATION DOSAGE (If Supplied By Facility): CTDIvol = ( 14.18 ) mGy, DLP = ( 499.46 ) mGycm TECHNIQUE: Transaxial images were obtained from the dome of the diaphragm to the symphysis pubis with oral contrast. 100 CC ISOVUE 370 was administered. Sagittal and coronal images were reconstructed. Individualized dose optimization techniques were used for this CT. COMPARISON: 05/12/2024 FINDINGS: Small bilateral pleural effusions with bibasilar atelectasis. The visualized portions of the heart are within normal limits. Tiny amount of ascites. Normal liver. Normal gallbladder and extrahepatic biliary system. Normal spleen. Normal pancreas. Normal bilateral adrenal glands. No change in a 4 cm cyst lower pole right kidney. Normal left kidney. Normal visualized stomach. Normal small intestine. There is diverticulosis, with thickening of the colon wall, and pericolonic inflammation changes consistent with acute diverticulitis. Interval increase in the size of the peripherally enhancing fluid collection with an air-fluid level just superior to the inflamed segment of sigmoid colon consistent with an abscess from 2.5 x 3.5 cm to 3.5 x 4.5 cm. There is non-visualization of the appendix. Normal abdominal aorta. Normal inferior vena cava. Normal retroperitoneum. Normal urinary bladder. Edema of the abdominal wall suggestive of anasarca. Mild levoscoliosis lumbar spine with degenerative disc disease. CT/Abdomen/Pelvis WITH Contrast IMPRESSION: 1. Continued sigmoid diverticulitis with enlarging abscess as described above. 2. Volume overload with bilateral pleural effusions, tiny amount of ascites, and anasarca. Electronically Signed: Enoc Cabello MD at 8:57 EDT ,
[2024-05-15] MEDS: Pantoprazole Sodium 40 MG Tablet PO (08:16)
[2024-05-15] MEDS: Enoxaparin 40 MG/0.4 ML Syringe SC (08:16)
[2024-05-15] MEDS: Lisinopril 10 MG Tablet PO (08:17)
--- NOTE | 2024-05-15 09:29 | PN.SURG_ITS ---
Subjective Subjective Patient had low-grade fever overnight. She is still having lower abdominal pain. Objective Data Objective Data Vital Signs: Vital Signs Temp Pulse Resp BP Pulse Ox O2 Del Method 98.6 F 71 16 137/68 H 93 Room Air 05/15/24 04:30 05/15/24 04:30 05/15/24 04:30 05/15/24 04:30 05/15/24 04:30 05/15/24 04:30 Oxygen Delivery Method Room Air Weight: 119 lb 0.794 oz Body Mass Index (BMI) 21.7 Intake & Output: Intake and Output for Last 24 Hours 05/13/24 05/14/24 05/15/24 23:59 23:59 23:59 Intake Total 3545.00 / 3665.00 3675.41 / 3915.41 2335.00 / 2335.00 Balance 3545.00 / 3665.00 3675.41 / 3915.41 2335.00 / 2335.00 Lab / Micro Data 05/15/24 05:43 05/15/24 05:43 Labs: Laboratory Results - last 24 hr 05/14/24 11:53: POC Glucose 115 H 05/15/24 00:17: POC Glucose 129 H 05/15/24 05:43: WBC 18.4 H, RBC 3.44 L, Hgb 10.8 L, Hct 34.3 L, MCV 99.7 H, MCH 31.4, MCHC 31.5 L, RDW Std Deviation 45.2 H, RDW Coeff of Nini 12.4, Plt Count 351, MPV 9.8, Immature Gran % (Auto) 0.700, Neut % (Auto) 80.2 H, Lymph % (Auto) 9.8 L, [place] % (Auto) 8.3, Eos % (Auto) 0.7, Baso % (Auto) 0.3, Absolute Neuts (auto) 14.8 H, Absolute Lymphs (auto) 1.81, Nucleated RBC % 0, Differential Comment , Diff Path Review March, Sodium 142, Potassium 3.5, Chloride 116 H, Carbon Dioxide 21.0, Anion Gap 5, BUN 6 L, Creatinine 0.58, Estim Creat Clear Calc 53.23, Est GFR (MDRD) Af Amer 133, Est GFR (MDRD) Non-Af 110, BUN/Creatinine Ratio 10.4, Glucose 113 H, Calcium 8.3 L 05/15/24 05:55: POC Glucose 110 H Radiography Diagnostic Testing: Radiology Impression Abdomen/Pelvis CT 05/15/24 08:00 IMPRESSION: 1. Continued sigmoid diverticulitis with enlarging abscess as described above. 2. Volume overload with bilateral pleural effusions, tiny amount of ascites, and anasarca. Electronically Signed: Enoc Cabello MD at 8:57 EDT , ADDENDUM: 05/15/24 0916 IMPRESSION: 1. Continued sigmoid diverticulitis with enlarging abscess as described above. 2. Volume overload with bilateral pleural effusions, tiny amount of ascites, and anasarca. N.B. : The above Results were Read Back by Enoc Cabello MD to Katie Gupta RN, and understanding confirmed on 05/15/2024 09:09:18 (ET). Electronically Signed: Enoc Cabello MD at 8:57 EDT , Physical Exam Const oriented x3 and no apparent distress Resp normal respiratory effort GI soft to palpation Palpation: tender suprapubic Extremity normal to inspection Assessment & Plan Assessment/Plan (1) Diverticulitis of intestine with abscess: QUALIFIERS: Diverticulitis site: large intestine Diverticulitis bleeding: without bleeding Qualified Code(s): K57.20 - Diverticulitis of large intestine with perforation and abscess without bleeding PLAN: The patient has worsening abscess on repeat CT this morning. Her white count is still markedly elevated. She is still having pain. At this point I feel like she has failed conservative therapy and I recommend sigmoid colectomy. I will take her afternoon for laparoscopic sigmoid colectomy with hopeful anastomosis. I also discussed having to place a temporary stoma or diverting ileostomy. Patient understands and is willing to proceed. I discussed the risks including but not limited to bleeding, infection, injury to underlying organs, need for colostomy, need for open surgery. Patient understands and wants to proceed. Mariusz Liao MD Pager: [facility] [address] [place] [address] [address] [place] [address] Office:
[2024-05-15 11:58] LABS: Bedside Glucose 121 mg/dL (74-106)
--- NOTE | 2024-05-15 14:03 | CASEMGMT ---
ASAEL ANDERSEN into pt room as pt nurse reported pt has questions. Pt has visitor at bedside. Pt and visitor asking if she has an ostomy would there be someone coming to the home for care. Discussed HHC and the possibility of this should she need it. Pt is aware that ASAEL ANDERSEN will follow after surgery to discuss needs. Pt and visitor thankful and denies further questions.
--- NOTE | 2024-05-15 14:14 | NURSING ---
pt off floor for surgery
[2024-05-15] MEDS: 0.9% Normal Saline (1000mL) 1,000 ML 15 ML IV ×3 (14:30→18:37)
[2024-05-15 14:56] LABS: Pathologist Review Reviewed
--- NOTE | 2024-05-15 15:06 | PCM.PRE.AN2 ---
ASA Classification* ASA Classification ASA Classification: 2 and E Assessment & Plan Anesthesia* Anesthesia Assessment Anesthesia Assessment: Discussed sedation and/or anesthesia options, risks, benefits, and alternatives with patient/parents/legal guardian/POA. Questions invited. The patient/parents/legal guardian/POA seems to understand and agrees to proceed with anesthesia plan. Reviewed the physical assessment, medical history, allergy history and patient home medications list prior to surgery/procedure/anesthetic and documented any changes. Performed airway and anesthesia risk assessments. Anesthesia Type Anesthesia Type: General History Source History Obtained from:: Patient and Chart Anesthesia Focused Assessment* Temperature: 98.8 F Pulse Rate: 88 Blood Pressure: 132/76 Respiratory Rate: 16 Pulse Ox: 96 Oxygen Delivery Method: Room Air Airway Assessment Mouth opens: >3 cm Mallampati Score: III Teeth Condition: Caps/Crowns (#8. #9 are capped. Tight ) Neck Range of motion (ROM): Full ROM Focused Labs Anesthesia Preop lab: CBC WBC 18.4 K/mm3 (4.4-11.0) H 05/15/24 05:43 RBC 3.44 M/mm3 (4.2-5.4) L 05/15/24 05:43 Hgb 10.8 g/dL (12.0-15.0) L 05/15/24 05:43 Hct 34.3 % (37-47) L 05/15/24 05:43 Plt Count 351 K/mm3 (150-450) 05/15/24 05:43 CHEMISTRY Potassium 3.5 mmol/L (3.5-5.1) 05/15/24 05:43 Sodium 142 mmol/L (136-145) 05/15/24 05:43 Magnesium 2.1 mg/dL (1.6-2.6) 05/13/24 06:25 Phosphorus 3.4 mg/dL (2.5-4.9) 05/13/24 06:25 BUN 6 mg/dL (7-18) L 05/15/24 05:43 Creatinine 0.58 mg/dL (0.55-1.02) 05/15/24 05:43 Glucose 113 mg/dL (74-106) H 05/15/24 05:43 POC Glucose 121 mg/dL (74-106) H 05/15/24 11:41 COAG Pre-Assessment Diagnosis/Proposed Procedure Planned Operative Procedure(s): Laparoscopic sigmoid colectomy, possible open, possible stoma Anesthesia History Anesthesia History - director pharmacology: Anesthesia History - director pharmacology Hx Hospitalization Any Problems With Anesthesia No 05/15/24 10:35 Cholinesterase deficiency You/Your Family Experience fever (hyperthermia) with Relationship Recent Exposure to Contagious Disease Does patient have nerve No 05/15/24 10:35 stimulator Patient instructed to have device shut off --Does patient have Pacemaker No 05/15/24 10:35 or ICD? When Was Last Pacemaker Check QUESTION #4 FULL TEXT: You/Your Family Experience fever (hyperthermia) with Anesthesia Last Oral Intake Last Oral intake: Last Oral Intake NPO since 10:00 05/15/24 10:35 Meds taken in AM with sips of Yes 05/15/24 10:35 water? Meds patient instructed to protonix 05/15/24 10:35 take am of surgery PONV PONV - director pharmacology: PONV - director pharmacology Female HX of Motion Sickness HX of N/V After Surgery Non-Smoker Duration of Surgery greater than 60 minutes Number of Risk Factors PONV Score Height & Weight Height & Weight: Anesthesia: Height & Weight Height 5 ft 2 in 05/15/24 13:34 Weight: 54 kg 05/15/24 13:34 Body Mass Index (BMI) 21.7 05/15/24 10:35 Respiratory Assessment Respiratory Assessment - director pharmacology: Respiratory Tract Infection Hx - director pharmacology Hx Respiratory Tract Infection Any additional information?: Yes Hx Respiratory Tract Infection: No STOP Sleep Apnea STOP Sleep Apnea - director pharmacology: STOP Sleep Apnea - director pharmacology Hx Hypertension Yes 05/12/24 16:46 Hx Sleep Apnea No 05/12/24 16:46 CPAP BIPAP Do you snore loudly (louder No 05/12/24 16:46 than talking or can be heard Do you often feel tired/ No 05/12/24 16:46 fatigued/ sleepy during daytime? Has anyone observed you stop No 05/12/24 16:46 breathing during sleep? STOP Results Negative 05/12/24 16:46 QUESTION #5 FULL TEXT : Do you snore loudly (louder than talking or can be heard through closed doors)? 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 Specify any problems Hx of Preganancy in last 3 No 05/12/24 16:46 Months Nurse Filling Out Transfusion TCLEVIDEN 05/12/24 16:46 & Questions: Date: 05/12/24 05/12/24 16:46 Time: 16:51 05/12/24 16:46 Patient unable to answer at this time (ie. confused, unrespo /Reproduction History /Reproductive History - director pharmacology: /Reproductive Hx- director pharmacology Hx Now No 05/15/24 10:35 Gestational Age (in weeks): EDC: Hx Hx Para Hx Section SAB Active Medications Active Medications: Current Medications Generic Name Dose Route Start Last Admin Trade Name Freq PRN Reason Stop Dose Admin Acetaminophen 650 mg 05/12/24 16:56 05/15/24 00:20 Acetaminophen 325 Mg Tablet PO 650 mg Q4H PRN PRN Administration Pain 1-10 or Fever Enoxaparin Sodium 40 mg 05/13/24 10:00 05/15/24 08:16 Enoxaparin 40 Mg/0.4 Ml Syringe SC 40 mg DAILY ANDREW Administration Glucagon 1 mg 05/13/24 09:14 Glucagon 1 Mg/Ml Syringe IM X1 PRN Hypoglycemia Protocol Sodium Chloride 250 mls @ 15 mls/hr 05/12/24 16:49 05/14/24 20:13 IV Infused .[id number] PRN Infusion Additional IVPB Infusion Sodium Chloride 250 mls @ 15 mls/hr 05/12/24 16:49 IV .[id number] PRN Saline Flush Piperacillin Sod/Tazobactam 50 mls @ 12.5 mls/hr 05/12/24 22:00 05/15/24 14:30 Sod 3.375 gm/ Sodium Chloride IV 12.5 mls/hr Q8 ANDREW Administration Dextrose/Sodium Chloride 1,000 mls @ 125 mls/hr 05/13/24 09:15 05/15/24 08:16 Dextrose 5%/0.9% Nacl IV 125 mls/hr .Q8H ANDREW Administration Dextrose 250 mls @ 0 mls/hr 05/13/24 09:14 Dextrose 10%-Water IV .Q0M PRN HYPOGLYCEMIA Protocol As Directed Sodium Chloride 1,000 mls @ 15 mls/hr 05/15/24 14:30 05/15/24 14:30 IV 15 mls/hr .Q48H ANDREW Administration Lisinopril 10 mg 05/13/24 10:00 05/15/24 08:17 Lisinopril 10 Mg Tablet PO 10 mg DAILY ANDREW Administration Protocol Loratadine 10 mg 05/13/24 10:00 05/15/24 08:16 Loratadine 10 Mg Tablet PO Not Given DAILY ANDREW Morphine Sulfate 2 - 4 mg 05/12/24 16:56 05/15/24 10:42 Morphine 2 Mg/Ml Syringe IV 2 mg Q2H PRN PRN Administration Pain Score 4-10 Morphine Sulfate 2 - 4 mg 05/12/24 17:03 05/14/24 15:39 Morphine 4 Mg/Ml Syringe IV 4 mg Q2H PRN PRN Administration Pain Score 4-10 Ondansetron HCl 4 mg 05/12/24 16:56 Ondansetron 4 Mg/2 Ml Vial IV Q6H PRN PRN NAUSEA/VOMITING Oxycodone HCl 10 mg 05/13/24 12:22 Oxycodone 5 Mg Tablet PO Q6H PRN PRN Pain Score 1-10 Pantoprazole Sodium 40 mg 05/13/24 10:00 05/15/24 08:16 Pantoprazole Sodium 40 Mg Tablet PO 40 mg DAILY ANDREW Administration Sodium Chloride 10 - 40 ml 05/12/24 16:49 05/14/24 15:40 0.9% Saline Lock 10 Ml Syringe IV 10 ml UD PRN Administration SALINE FLUSH Sodium Chloride 10 - 40 ml 05/12/24 16:56 0.9% Saline Lock 10 Ml Syringe IV UD PRN SALINE FLUSH Sodium Chloride 10 - 40 ml 05/12/24 16:56 0.9% Saline Lock 10 Ml Syringe IV UD PRN SALINE FLUSH [facility] Medical History Hypertension Home Medications ?Medication ?Instructions ?Recorded ?Last Taken ?Type lisinopril 10 mg tablet 10 mg PO DAILY 01/08/15 05/12/24 History multivitamin with folic acid 400 1 tab PO DAILY 01/08/15 05/11/24 History mcg tablet (Thera) calcium carbonate 600 mg-vitamin 1 cap PO DAILY 05/12/24 05/11/24 History D3 12.5 mcg (500 unit) capsule (Calcium 600 with Vitamin D3) fexofenadine 180 mg tablet 180 mg PO DAILY 05/12/24 05/11/24 History (Winter Allergy) Allergy/AdvReac Type Severity Reaction Status Date / Time No Known Allergies Allergy Verified 05/12/24 10:27 Surgical History Hx of tubal ligation Social History Smoking Status: Current every day smoker tobacco type: cigarettes Review of Systems (Anesthesia) ROS Narrative System reviewed and no additional complaints, except as documented.
[2024-05-15 15:17] LABS: Pathologist Review Reviewed
--- NOTE | 2024-05-15 16:00 | COL_PTH ---
PATIENT: EDA ARREOLA LOC: MS3 U#:[id number] AGE/SX: 68/F ROOM: [facility] [place] RE05/12/[address]: Dr. Mariusz Liao MD : 1955 BED: 1 DIS: 05/22/2024 SPEC #: [id number] RECD: 05/16/24 10:48 STATUS: TJ MORA #: [id number] RICHAR: 05/15/24 16:[address]: Mariusz Liao DEPT: SURGICAL PATHOLOGY RECD BY: Thuan Mcnair ENTERED: 05/16/24 11:20 SP TYPE: COLON OTHR DR: Dr. Ashley Richardson MD Tissues: A - Colon, NOS B - Colon Donuts Procedures: Surgery Specimen Level III Surgery Specimen Level V HEADER OPERATION: Laparoscopic converted to open sigmoid colectomy with Sharri PRE-OP DIAGNOSIS: Diverticulitis of intestine with abscess TISSUE SUBMITTED: A- Sigmoid colon, B- Distal and proximal donuts MICROSCOPIC DIAGNOSIS A. Sigmoid colon, colectomy: Diverticulosis and diverticulitis with focal area of diverticular rupture and abscess formation. Four small benign pericolonic lymph nodes. B. Distal and proximal donuts: Colonic donuts, no pathologic diagnosis. Two benign pericolonic lymph nodes. / 05/18/2024 MICROSCOPIC DESCRIPTION Slides are reviewed. GROSS DESCRIPTION A. Received in fixative is one container labeled with the patient's name and designated Sigmoid colon. The specimen consists of a segment of colon with attached pericolonic adipose tissue measuring 15.0cm in length. Both resection margins are stapled. No mucosal lesion is identified. Sections reveal multiple diverticula with focal area of rupture. Serosal surface is congested, hemorrhagic and covered with gresham purulent material in this area. This area is present 5.0cm away from the one resection margin. Section of pericolonic adipose tissue do not reveal any obvious enlarged lymph node. Also present in the container is a smaller segment of colon measuring 2.5cm in length. Both resection margins are stapled. No mucosal lesion is identified. Medical Technologist Chief sections are submitted in eight cassettes as follows: 1-detached smaller segment of bowel, 2-8- larger segment of bowel (2- resection margins, 7-0-brqnwitexha with rupture, 6 and 7- more sections of diverticula, 8- pericolonic adipose tissue). B. Received in fixative is one container labeled with the patient's name and designated Distal and proximal donut. The specimen consists of are two donut shaped pieces of bowel tissue measuring 2.0 x 1.5 x 1.0cm and 1.5 x 1.3 x 1.0cm. Sections do not reveal any mass lesions. One of the donuts show sutures. Medical Technologist Chief sections are submitted in two cassettes. 1- donut with suture, 2- donut without suture. Gloria 05/17/2024 TC:5 CPT:[id number]
--- NOTE | 2024-05-15 18:01 | OP.PCM_ITS ---
Report of Operation Date of Procedure: 05/15/24 Pre-Operative Diagnosis: Sigmoid diverticulitis with abscess Post-Operative Diagnosis: Same Surgery/Procedure Performed:: Laparoscopic converted to open sigmoid colectomy with anastomosis Type of Anesthesia: General/Regional Specimen's removed: Sigmoid colon Drains: BHAKTI to bulb suction Estimated Blood Loss (mL): 30 Description of Procedure: Patient was brought back to the operating room and general anesthesia was induced. A Salomon catheter was placed. After placing the patient in lithotomy position the abdomen was prepped and draped in usual sterile fashion as well as the perineum. Next a midline incision was made superior to the umbilicus and deepened to the fascia which was elevated and incised. A 12 mm port was placed into the abdomen and the abdomen was insufflated. Under direct visualization a tap block was performed bilaterally using a mixture of Marcaine and Exparel and saline. Next under direct visualization a 12 mm port was placed in the right lower quadrant and a 5 mm port was placed in the right upper quadrant. Using atraumatic graspers the small bowel was retracted medially and superiorly. The descending colon was identified and was traced down to the sigmoid colon which was stuck in the pelvis. I tried to mobilize the sigmoid colon laparoscopically but it was too adherent to the tissue in the pelvis near the abscess. The decision was made to convert to open. A midline incision was made inferior to the umbilicus and deepened to the fascia which was incised. After the peritoneum was opened a large wound protector was placed. The small bowel was packed to the superior abdomen and the colon was identified. Using finger fracture the colon was able to be mobilized from the surrounding adherent tissue. The abscess was identified. Distal to the inflamed segment of colon there was healthy rectum. A LEV stapler was used to come across the sigmoid j ust proximal to the rectum. In the same fashion a LEV stapler was used to take the sigmoid colon proximally before the inflammation. The pelvis was irrigated and suctioned dry and hemostasis was obtained use electrocautery. Next a sizer was used on the rectum and I was able to get all the way to the staple line using a 29 sizer. Next I changed my gown and gloves and then return to the abdomen. The distal descending colon staple line was removed sharply and then a 29 EEA anvil was placed into the lumen and a pursestring with 0 Prolene suture was performed. Next the school bus driver/teacher assistant went down and placed the stapler which was well-lubricated into the rectum and it was guided up to the staple line. There was still a little bit of inflammation on the anterior rectum so the posterior rectum was used to bring the point of the stapler out and then the anvil was placed on it and it was retracted and fired. Next the stapler was removed in entirety and the donuts were intact. The abdomen was filled with saline and then a leak test was performed. Air was pumped into the rectum using a rigid sigmoidoscope and the descending colon was clamped with my fingers. There was no leak and the anastomosis appeared healthy and intact. The abdomen was suctioned dry. Next a drain was placed through the right lower quadrant incision into the pelvis. The fascia at the incision was closed with 0 Vicryl suture and then the skin was closed with 0 Vicryl as well. The drain was then sutured to the skin using 3-0 nylon suture. The upper midline incision fascia was closed with interrupted 0 Vicryl sutures. All of the incisions were injected with local anesthetic. The skin was closed over the laparoscopic sites with 4-0 Monocryl suture. The skin was loosely approximated in the midline incision using 4-0 Monocryl suture and some Steri-Strips. A bandage was applied and BHAKTI was placed to bulb suction. Patient was taken to PACU in stable condition. Admit VTE Documentation VTE Mechan Device Prophylaxis: SCD's
--- NOTE | 2024-05-15 18:11 | PCM.POST.ANE ---
Anesthesia: Postop Eval I Current Vital Signs Temperature: 98.7 F Pulse Rate: 103 Blood Pressure: 148/89 Respiratory Rate: 14 Pulse Ox: 100 Oxygen Delivery Method: Room Air Assessment Airway patent: Yes Spontaneous unlabored respirations: Yes Mental status: Awake and Calm nausea: No Vomiting: No Anesthesia Complication: No Fluid Hydration Crystalloid volume administer (ml): 1,000 Total IV fluid infused: 1,000 Progress Note Anesthesia document: Postop Eval 1 completed: Yes
[2024-05-15] MEDS: 0.9% Normal Saline (Pres. free 10 ML Vial (18:14)
[2024-05-15] MEDS: BUPIVACAINE LIPOSOME/PF 20 ML VIAL OPERA.SITE (18:16)
[2024-05-15] MEDS: Bupivacaine 0.25% 30 ML Vial (18:17)
--- NOTE | 2024-05-15 18:30 | SUR.PHASEI ---
RESTING QUIETLY, NO S/S DISTRESS, FACE NEUTRAL, BP & HR IMPROVING. WHEN ASKED IF HAVING PAIN, STATES IT'S 10/10; IT'S MORE THAN IT WAS BEFORE...I HAVE A HIGH PAIN TOLERANCE SO IT'S HIGHER THAN OTHERS [PEOPLE]. REVIEWED PAIN SCALE.
[2024-05-15 19:05] LABS: Bedside Glucose 129 mg/dL (74-106)
[2024-05-15] MEDS: Morphine 4 MG/ML Syringe IV ×2 (20:29→23:40)
[2024-05-15] MEDS: Ondansetron 4 MG/2 ML Vial IV (20:29)
[2024-05-15] MEDS: Dextrose 5%/0.9% NaCl 1,000 ML 60 ML IV (22:13)
[2024-05-16 00:43] LABS: Bedside Glucose 143 mg/dL (74-106)
[2024-05-16 03:02] VITALS: BP 120/69; PULSE 60; RESP 14; TEMP 36.8; O2SAT 96
[2024-05-16] MEDS: Acetaminophen 325 MG Tablet 650 MG PO ×4 (03:04→22:03)
[2024-05-16] MEDS: oxyCODONE 5 MG Tablet 10 MG PO ×4 (03:04→22:03)
[2024-05-16] MEDS: Ondansetron 4 MG/2 ML Vial IV (03:04)
[2024-05-16] MEDS: Piperacil/Tazobactam 3.375 GM in 0.9% Normal Saline (50mL MB+) 50 ML IV ×3 (05:35→21:57)
[2024-05-16] MEDS: Morphine 4 MG/ML Syringe IV (05:35)
[2024-05-16 05:39] VITALS: BP 109/64; PULSE 73; RESP 16; TEMP 36.9; O2SAT 95
--- NOTE | 2024-05-16 06:43 | NURSING ---
Stood patient at bedside.
[2024-05-16 08:01] LABS: Absolute Lymphocyte Count 1.19 X10^3/uL (0.83-4.51); Absolute Neutrophil Count 23.7 X10^3/uL (2.0-7.7); Basophil# 0.05 X10^3/uL; Basophil% 0.2 % (0-1); Eosinophil# 0.01 X10^3/uL; Hematocrit 33.7 % (37-47); Hemoglobin 10.9 g/dL (12.0-15.0); Lymphocyte # 1.19 X10^3/ul (0.83-4.51); Lymphocyte % 4.5 % (19-41); Mean Corp Hgb Conc 32.3 g/dL (32-36); Mean Corpuscular Hgb 32.2 pg (27.0-32.0); Mean Corpuscular Volume 99.7 fL (81-99); Mean Platelet Vol. 9.9 fl (6.2-12.0); Monocyte# 1.35 X10^3/uL; Monocyte% 5.1 % (0-10); NRBC Flagged by Analyzer 0 % (0-5); Neutrophil # 23.71 X10^3/uL (2.7-7.7); Neutrophil % 89.3 % (47-70); POSITIVE DIFFERENTIAL YES; Platelet Count 383 K/mm3 (150-450); RBC Distribution Width CV 12.5 % (11.6-14.6); RBC Distribution Width SD 45.2 fl (35.1-43.9); Red Blood Count 3.38 M/mm3 (4.2-5.4); White Blood Count 26.6 K/mm3 (4.4-11.0)
--- NOTE | 2024-05-16 08:06 | POSTOPAN2_ITS ---
Anesthesia Postop Eval I Sum Postop Eval Completion status Anesthesia document: Postop Eval 1 completed: Yes Anesthesia Postop Eval I Summary Anesthesia Postop Eval I Summary: Anesthesia Postop Eval I: Assessment Summary Airway patent Yes 05/15/24 18:11 [email or web address] [email or web address] Spontaneous unlabored Yes 05/15/24 18:11 PYTHON [email or web address] respirations Mental status Awake,Calm 05/15/24 18:11 [email or web address] [email or web address] nausea No 05/15/24 18:11 [email or web address] [email or web address] Vomiting No 05/15/24 18:11 PYTHON [email or web address] Anesthesia Postop Eval I: Fluid Summary Crystalloid volume administer 1,000 05/15/24 18:11 [email or web address] (ml) Colloids volume administered ( ml) Blood Product volume administered (ml) Total IV fluid infused 1,000 05/15/24 18:11 PYTHON [email or web address] Anesthesia Postop Eval I: Summary Notes Anesthesia Complication No 05/15/24 18:11 PYTHON [email or web address] Anesthesia Complication Comment: Post-operative progress note Anesthesia: Postop Eval II Evaluation Mental status: Awake Pain Level: 1 nausea: No Vomiting: No Complications Anesthesia Complication: No
--- NOTE | 2024-05-16 08:06 | PCM.POSTANE2 ---
Anesthesia Postop Eval I Sum Postop Eval Completion status Anesthesia document: Postop Eval 1 completed: Yes Anesthesia Postop Eval I Summary Anesthesia Postop Eval I Summary: Anesthesia Postop Eval I: Assessment Summary Airway patent Yes 05/15/24 18:11 SPECIAL CERTIFICATE [email or web address] Spontaneous unlabored Yes 05/15/24 18:11 SPECIAL CERTIFICATE [email or web address] respirations Mental status Awake,Calm 05/15/24 18:11 SPECIAL CERTIFICATE [email or web address] nausea No 05/15/24 18:11 SPECIAL CERTIFICATE [email or web address] Vomiting No 05/15/24 18:11 SPECIAL CERTIFICATE [email or web address] Anesthesia Postop Eval I: Fluid Summary Crystalloid volume administer 1,000 05/15/24 18:11 SPECIAL [email or web address] [email or web address] (ml) Colloids volume administered ( ml) Blood Product volume administered (ml) Total IV fluid infused 1,000 05/15/24 18:11 SPECIAL CERTIFICATE [email or web address] Anesthesia Postop Eval I: Summary Notes Anesthesia Complication No 05/15/24 18:11 SPECIAL [email or web address] [email or web address] Anesthesia Complication Comment: Post-operative progress note Anesthesia: Postop Eval II Evaluation Mental status: Awake Pain Level: 1 nausea: No Vomiting: No Complications Anesthesia Complication: No
[2024-05-16 08:14] LABS: Differential Indicated SCAN CRITERIA MET
[2024-05-16] MEDS: Enoxaparin 40 MG/0.4 ML Syringe SC (09:07)
[2024-05-16] MEDS: Pantoprazole Sodium 40 MG Tablet PO (09:08)
[2024-05-16] MEDS: Lisinopril 10 MG Tablet PO (09:08)
[2024-05-16 10:02] LABS: Anion Gap 5 (5-15); BUN 4 mg/dL (7-18); BUN/Creat Ratio 6.2 RATIO (10-20); Chloride 114 mmol/L (98-107); Creatinine, Serum 0.64 mg/dL (0.55-1.02); EST Glomerular Filtration Rate 97 mL/min (>60); Est Glom Filt Rate - Afr Amer 117 mL/min (>60); Estimated Creatinine Clearance 53.23 ml/min; Glucose 131 mg/dL (74-106); Potassium 3.6 mmol/L (3.5-5.1); Sodium Level 140 mmol/L (136-145)
[2024-05-16 10:30] VITALS: BP 137/71; PULSE 72; RESP 18; TEMP 37; O2SAT 93
--- NOTE | 2024-05-16 10:36 | CASEMGMT ---
RN CM into pt room, pt with visitor at bedside washing pt hair. Discussed pt surgery and she is thankful she did not need an ostomy. Pt does not feel she will need HHC at this time. She is aware that the RN CM will follow with her and the BHAKTI drain should she need this upon going home. Pt denies any questions at this time.
--- NOTE | 2024-05-16 12:06 | PN.SURG_ITS ---
Subjective Subjective The patient reports she is feeling better than yesterday. She denies nausea or vomiting. She says pain is well-controlled. Objective Data Objective Data Vital Signs: Vital Signs Temp Pulse Resp BP Pulse Ox O2 Del Method O2 Flow Rate 98.6 F 72 18 137/71 H 93 Room Air 2 05/16/24 10:30 05/16/24 10:30 05/16/24 10:30 05/16/24 10:30 05/16/24 10:30 05/16/24 10:30 05/16/24 05:39 Oxygen Flow Rate (L/min) 2 Oxygen Delivery Method Room Air Weight: 119 lb 0.794 oz Body Mass Index (BMI) 21.7 Intake & Output: Intake and Output for Last 24 Hours 05/14/24 05/15/24 05/16/24 23:59 23:59 23:59 Intake Total 3675.41 / 3915.41 4549.25 / 4689.25 440 / 440 Output Total 230 / 555 560 / 560 Balance 3675.41 / 3915.41 4319.25 / 4134.25 -120 / -120 Lab / Micro Data 05/16/24 06:19 05/16/24 06:19 Labs: Laboratory Results - last 24 hr 05/12/24 10:55: Diff Path Review Reviewed 05/15/24 05:43: Diff Path Review Reviewed 05/15/24 18:43: POC Glucose 129 H 05/16/24 00:24: POC Glucose 143 H 05/16/24 06:19: WBC 26.6 H, RBC 3.38 L, Hgb 10.9 L, Hct 33.7 L, MCV 99.7 H, MCH 32.2 H, MCHC 32.3, RDW Std Deviation 45.2 H, RDW Coeff of Nini 12.5, Plt Count 383, MPV 9.9, Immature Gran % (Auto) 0.900, Neut % (Auto) 89.3 H, Lymph % (Auto) 4.5 L, [place] % (Auto) 5.1, Eos % (Auto) 0.0, Baso % (Auto) 0.2, Absolute Neuts (auto) 23.7 H, Absolute Lymphs (auto) 1.19, Nucleated RBC % 0, Differential Comment , Sodium 140, Potassium 3.6, Chloride 114 H, Carbon Dioxide 21.0, Anion Gap 5, BUN 4 L, Creatinine 0.64, Estim Creat Clear Calc 53.23, Est GFR (MDRD) Af Amer 117, Est GFR (MDRD) Non-Af 97, BUN/Creatinine Ratio 6.2 L, Glucose 131 H, C alcium 8.0 L Physical Exam Const oriented x3 and no apparent distress Resp normal respiratory effort Cardio regular rate and regular rhythm GI soft to palpation Palpation: tender Assessment & Plan Assessment/Plan (1) Diverticulitis of intestine with abscess: QUALIFIERS: Diverticulitis site: large intestine Diverticulitis bleeding: without bleeding Qualified Code(s): K57.20 - Diverticulitis of large intestine with perforation and abscess without bleeding PLAN: The patient was taken for sigmoid colectomy yesterday. She tolerated the procedure well. She says she feels comfortable today with no nausea or vomiting. She has been afebrile since surgery with no tachycardia. Her white count did increase but this may have been from disrupting the abscess. Clinically she seems to be doing well with stable vitals. Continue antibiotics until white count returns normal. Continue n.p.o. and IV fluids. Mariusz Liao MD Pager: [facility] [address] [place] [address], [address] [place] [address] Office:
[2024-05-16 12:27] LABS: Bedside Glucose 95 mg/dL (74-106)
[2024-05-16] MEDS: Dextrose 5%/0.9% NaCl 1,000 ML 60 ML IV (14:15)
[2024-05-16] MEDS: Morphine 2 MG/ML Syringe IV (14:15)
[2024-05-16 16:00] VITALS: BP 118/68; PULSE 80; RESP 16; TEMP 36.9; O2SAT 96
[2024-05-16 18:12] LABS: Bedside Glucose 88 mg/dL (74-106)
[2024-05-16 21:51] VITALS: BP 126/64; PULSE 75; RESP 18; TEMP 36.8; O2SAT 97
[2024-05-17] MEDS: Morphine 2 MG/ML Syringe IV ×2 (01:46→12:29)
[2024-05-17 02:07] LABS: Bedside Glucose 93 mg/dL (74-106)
[2024-05-17 04:46] VITALS: BP 125/67; PULSE 70; RESP 18; TEMP 36.6; O2SAT 99
[2024-05-17] MEDS: Dextrose 5%/0.9% NaCl 1,000 ML 60 ML IV ×2 (04:58→22:33)
[2024-05-17] MEDS: Piperacil/Tazobactam 3.375 GM in 0.9% Normal Saline (50mL MB+) 50 ML IV ×3 (05:00→23:09)
[2024-05-17 06:20] LABS: Absolute Lymphocyte Count 2.01 X10^3/uL (0.83-4.51); Absolute Neutrophil Count 12.8 X10^3/uL (2.0-7.7); Basophil# 0.07 X10^3/uL; Basophil% 0.4 % (0-1); Eosinophil# 0.18 X10^3/uL; Eosinophils% 1.1 % (0-5); Hematocrit 33.9 % (37-47); Hemoglobin 10.9 g/dL (12.0-15.0); Lymphocyte # 2.01 X10^3/ul (0.83-4.51); Lymphocyte % 12.4 % (19-41); Mean Corp Hgb Conc 32.2 g/dL (32-36); Mean Corpuscular Hgb 31.8 pg (27.0-32.0); Mean Corpuscular Volume 98.8 fL (81-99); Mean Platelet Vol. 9.4 fl (6.2-12.0); Monocyte# 1.11 X10^3/uL; Monocyte% 6.8 % (0-10); NRBC Flagged by Analyzer 0 % (0-5); Neutrophil # 12.78 X10^3/uL (2.7-7.7); Neutrophil % 78.6 % (47-70); Platelet Count 413 K/mm3 (150-450); RBC Distribution Width CV 12.5 % (11.6-14.6); RBC Distribution Width SD 45.3 fl (35.1-43.9); Red Blood Count 3.43 M/mm3 (4.2-5.4); White Blood Count 16.3 K/mm3 (4.4-11.0)
[2024-05-17 06:45] LABS: Anion Gap 4 (5-15); BUN 5 mg/dL (7-18); BUN/Creat Ratio 7.7 RATIO (10-20); Calcium,Total 8.2 mg/dL (8.5-10.1); Chloride 116 mmol/L (98-107); Creatinine, Serum 0.65 mg/dL (0.55-1.02); EST Glomerular Filtration Rate 96 mL/min (>60); Est Glom Filt Rate - Afr Amer 116 mL/min (>60); Estimated Creatinine Clearance 53.23 ml/min; Glucose 97 mg/dL (74-106); Potassium 3.2 mmol/L (3.5-5.1); Sodium Level 141 mmol/L (136-145)
[2024-05-17 07:40] LABS: Bedside Glucose 88 mg/dL (74-106)
[2024-05-17 07:49] LABS: Magnesium 1.8 mg/dL (1.6-2.6); Phosphorus 2.5 mg/dL (2.5-4.9)
--- NOTE | 2024-05-17 08:23 | PCM.PN.SRG ---
Subjective Subjective Patient seen and examined during AM rounds and then again during the afternoon rounds. Initially she reported just loose bowels but no gas and that she was drinking water. She describes some soreness from her incision. Upon hearing of her output and tolerance of water she is formally advanced to a clear liquid diet which she tolerated without difficulty and upon follow-up in the afternoon reported feeling more energetic. She confirmed that she was walking in the halls. Objective Data Objective Data Vital Signs: Vital Signs Temp Pulse Resp BP Pulse Ox O2 Del Method O2 Flow Rate 97.8 F 70 18 125/67 H 99 Room Air 2 05/17/24 04:46 05/17/24 04:46 05/17/24 04:46 05/17/24 04:46 05/17/24 04:46 05/17/24 04:53 05/17/24 04:46 Oxygen Flow Rate (L/min) 2 Oxygen Delivery Method Room Air Weight: 119 lb 0.794 oz Body Mass Index (BMI) 21.7 Intake & Output: Intake and Output for Last 24 Hours 05/15/24 05/16/24 05/17/24 23:59 23:59 23:59 Intake Total 4549.25 / 4689.25 1492 / 1492 1013 / 1013 Output Total 230 / 555 685 / 685 70 / 70 Balance 4319.25 / 4134.25 807 / 807 943 / 943 Lab / Micro Data 05/18/24 06:14 05/18/24 06:14 Labs: Laboratory Results - last 24 hr 05/16/24 06:19: Differential Comment , Sodium 140, Potassium 3.6, Chloride 114 H, Carbon Dioxide 21.0, Anion Gap 5, BUN 4 L, Creatinine 0.64, Estim Creat Clear Calc 53.23, Est GFR (MDRD) Af Amer 117, Est GFR (MDRD) Non-Af 97, BUN/Creatinine Ratio 6.2 L, Glucose 131 H, Calcium 8.0 L 05/16/24 12:09: POC Glucose 95 05/16/24 17:54: POC Glucose 88 05/17/24 01:42: POC Glucose 93 05/17/24 05:50: WBC 16.3 H, RBC 3.43 L, Hgb 10.9 L, Hct 33.9 L, MCV 98.8, MCH 31.8, MCHC 32.2, RDW Std Deviation 45.3 H, RDW Coeff of Nini 12.5, Plt Count 413, MPV 9.4, Immature Gran % (Auto) 0.700, Neut % (Auto) 78.6 H, Lymph % (Auto) 12.4 L, [place] % (Auto) 6.8, Eos % (Auto) 1.1, Baso % (Auto) 0.4, Absolute Neuts (auto) 12.8 H, Absolute Lymphs (auto) 2.01, Nucleated RBC % 0, Sodium 141, Potassium 3.2 L, Chloride 116 H, Carbon Dioxide 21.0, Anion Gap 4 L, BUN 5 L, Creatinine 0.65, Estim Creat Clear Calc 53.23, Est GFR (MDRD) Af Amer 116, Est GFR (MDRD) Non-Af 96, BUN/Creatinine Ratio 7.7 L, Glucose 97, Calcium 8.2 L, Phosphorus 2.5, Magnesium 1.8 05/17/24 06:20: POC Glucose 88 Physical Exam Const oriented x3 and no apparent distress Resp normal respiratory effort GI GI Narrative: Nondistended, operative dressings initially intact but these are removed team did find Steri-Strips crossing patient's wound. There is minimal drainage of serous fluid from the wound. There is no surrounding erythema. Patient has minimal tenderness upon palpation. Right lower quadrant drain contains some serosanguineous drainage during AM rounds but there is clot within the tubing during p.m. rounds that require stripping. Assessment & Plan Assessment/Plan (1) Diverticulitis of intestine with abscess: QUALIFIERS: Diverticulitis site: large intestine Diverticulitis bleeding: without bleeding Qualified Code(s): K57.20 - Diverticulitis of large intestine with perforation and abscess without bleeding PLAN: Patient is postoperative day 2 from lap converted to open sigmoidectomy. Overall picture of ongoing clinical improvements. Patient confirms return of bowel function with liquid stool but denies passage of flatus. Significance of this is incompletely understood that she does appear to be tolerating clear liquid diet. She remains afebrile and her white count has decreased significantly with ongoing IV antibiotic therapy. Her incision and drain are also appropriate. Plan is to continue antibiotics until white count returns normal. Patient required replacement of electrolytes today so we will recheck those tomorrow. Will hopefully be able to advance patient's diet further tomorrow provided she continues tolerance. Lovenox appears to have been continued perioperatively and patient's hemoglobin has remained stable. Lastly she is continuously being reminded to ambulate and increase her activity postoperatively. Mode Shaw MD General Surgery Endocrine Surgery Pager: [facility] [address] [place] [address], [address] [place] [address] Office: [phone] Charges/Coding Visit Charges Inpatient E&M: 52177 Init Hosp L2
[2024-05-17] MEDS: Morphine 4 MG/ML Syringe IV (09:25)
[2024-05-17] MEDS: 0.9% Saline Lock 10 ML Syringe IV ×2 (09:26→12:28)
[2024-05-17] MEDS: Potassium Chloride 10mEq/100mL 10 MEQ/100 ML IV.SOLN. 100 MEQ IV BOLUS ×4 (09:43→13:26)
[2024-05-17] MEDS: Magnesium Sulfate 2 GM in Dextrose 5%-Water (100mL Bag) 100 ML IV (09:58)
[2024-05-17 10:00] VITALS: BP 140/74; PULSE 82; RESP 16; RESP 18; TEMP 37; O2SAT 96
[2024-05-17] MEDS: oxyCODONE 5 MG Tablet 10 MG PO ×3 (10:18→23:11)
[2024-05-17] MEDS: Lisinopril 10 MG Tablet PO (10:19)
[2024-05-17] MEDS: Pantoprazole Sodium 40 MG Tablet PO (10:19)
[2024-05-17] MEDS: Loratadine 10 MG Tablet PO (10:19)
[2024-05-17] MEDS: Enoxaparin 40 MG/0.4 ML Syringe SC (10:19)
[2024-05-17 10:45] VITALS: BP 140/74; PULSE 82; RESP 18; TEMP 37; O2SAT 96
[2024-05-17] MEDS: Acetaminophen 325 MG Tablet 650 MG PO ×2 (11:12→20:21)
[2024-05-17 12:35] LABS: Bedside Glucose 103 mg/dL (74-106)
[2024-05-17 16:00] VITALS: BP 131/71; PULSE 74; RESP 18; TEMP 37.1; O2SAT 97
[2024-05-17 16:47] VITALS: BP 131/71; PULSE 74; RESP 18; TEMP 37.1; O2SAT 98
[2024-05-17 17:04] LABS: Bedside Glucose 91 mg/dL (74-106)
[2024-05-17 20:04] VITALS: BP 122/61; PULSE 88; RESP 18; TEMP 37.2; O2SAT 92
[2024-05-17 23:48] LABS: Bedside Glucose 99 mg/dL (74-106)
[2024-05-18 02:36] VITALS: BP 111/80; PULSE 95; RESP 18; TEMP 36.6; O2SAT 99
[2024-05-18] MEDS: Piperacil/Tazobactam 3.375 GM in 0.9% Normal Saline (50mL MB+) 50 ML IV ×3 (05:51→22:20)
[2024-05-18 06:36] LABS: Absolute Lymphocyte Count 2.38 X10^3/uL (0.83-4.51); Absolute Neutrophil Count 12.8 X10^3/uL (2.0-7.7); Basophil% 0.6 % (0-1); Eosinophil# 0.46 X10^3/uL; Eosinophils% 2.7 % (0-5); Hematocrit 34.5 % (37-47); Hemoglobin 11.1 g/dL (12.0-15.0); Lymphocyte # 2.38 X10^3/ul (0.83-4.51); Lymphocyte % 13.9 % (19-41); Mean Corp Hgb Conc 32.2 g/dL (32-36); Mean Corpuscular Hgb 31.6 pg (27.0-32.0); Mean Corpuscular Volume 98.3 fL (81-99); Mean Platelet Vol. 9.4 fl (6.2-12.0); Monocyte# 1.18 X10^3/uL; Monocyte% 6.9 % (0-10); NRBC Flagged by Analyzer 0 % (0-5); Neutrophil # 12.77 X10^3/uL (2.7-7.7); Neutrophil % 74.6 % (47-70); Platelet Count 477 K/mm3 (150-450); RBC Distribution Width CV 12.6 % (11.6-14.6); RBC Distribution Width SD 45.4 fl (35.1-43.9); Red Blood Count 3.51 M/mm3 (4.2-5.4); White Blood Count 17.1 K/mm3 (4.4-11.0)
[2024-05-18 06:37] LABS: Bedside Glucose 78 mg/dL (74-106)
[2024-05-18 06:55] LABS: Anion Gap 6 (5-15); BUN 5 mg/dL (7-18); BUN/Creat Ratio 7.5 RATIO (10-20); Calcium,Total 8.3 mg/dL (8.5-10.1); Chloride 112 mmol/L (98-107); Creatinine, Serum 0.66 mg/dL (0.55-1.02); EST Glomerular Filtration Rate 94 mL/min (>60); Est Glom Filt Rate - Afr Amer 113 mL/min (>60); Estimated Creatinine Clearance 53.23 ml/min; Glucose 96 mg/dL (74-106); Magnesium 1.9 mg/dL (1.6-2.6); Phosphorus 2.4 mg/dL (2.5-4.9); Potassium 3.6 mmol/L (3.5-5.1); Sodium Level 141 mmol/L (136-145)
[2024-05-18] MEDS: Ipratropium/Albuterol Sulfate 3 ML AMPUL.NEB INHALATION (07:31)
[2024-05-18 07:32] VITALS: PULSE 75; RESP 18
--- NOTE | 2024-05-18 07:50 | PN.SURG_ITS ---
Subjective Subjective Patient is evaluated in conjunction with Dr. Nuñez resting comfortably in bed. She was actively receiving a breathing treatment. She notes her glucose dropped to 52 over night. She was drinking some juice. She denies nausea, vomiting, fever. She continues to have loose stools. No flatus. She is tolerating clear liquids. Objective Data Objective Data Vital Signs: Vital Signs Temp Pulse Resp BP Pulse Ox O2 Del Method O2 Flow Rate 98 F 75 18 111/80 99 Room Air 2 05/18/24 02:36 05/18/24 07:32 05/18/24 07:32 05/18/24 02:36 05/18/24 02:36 05/18/24 02:49 05/18/24 02:36 Oxygen Flow Rate (L/min) 2 Oxygen Delivery Method Room Air Weight: 119 lb 0.794 oz Body Mass Index (BMI) 21.7 Intake & Output: Intake and Output for Last 24 Hours 05/16/24 05/17/24 05/18/24 23:59 23:59 23:59 Intake Total 1492 / 1492 3726 / 3726 280 / 280 Output Total 685 / 685 90 / 90 70 / 70 Balance 807 / 807 3636 / 3636 210 / 210 Lab / Micro Data 05/18/24 06:14 05/18/24 06:14 Labs: Laboratory Results - last 24 hr 05/17/24 12:16: POC Glucose 103 05/17/24 16:27: POC Glucose 91 05/17/24 23:17: POC Glucose 99 05/18/24 06:14: WBC 17.1 H, RBC 3.51 L, Hgb 11.1 L, Hct 34.5 L, MCV 98.3, MCH 31.6, MCHC 32.2, RDW Std Deviation 45.4 H, RDW Coeff of Nini 12.6, Plt Count 477 H, MPV 9.4, Immature Gran % (Auto) 1.300 H, Neut % (Auto) 74.6 H, Lymph % (Auto) 13.9 L, [place] % (Auto) 6.9, Eos % (Auto) 2.7, Baso % (Auto) 0.6, Absolute Neuts (auto) 12.8 H, Absolute Lymphs (auto) 2.38, Nucleated RBC % 0, Sodium 141, Potassium 3.6, Chloride 112 H, Carbon Dioxide 23.0, Anion Gap 6, BUN 5 L, Creatinine 0.66, Estim Creat Clear Calc 53.23, Est GFR (MDRD) Af Amer 113, Est GFR (MDRD) Non-Af 94, BUN/Creatinine Ratio 7.5 L, Glucose 96, Calcium 8.3 L, P hosphorus 2.4 L, Magnesium 1.9 05/18/24 06:15: POC Glucose 78 Physical Exam Const alert, oriented x3 and no apparent distress GI GI Narrative: Abdomen- soft, tenderness to the left of the incision with palpation. BHAKTI drain with serosanguineous fluid noted. Minimal amount of serous drain on the gauze dressing at the BHATKI site and from the midline incision. No erythema or signs of infection noted. Assessment & Plan Assessment/Plan (1) Diverticulitis of intestine with abscess: QUALIFIERS: Diverticulitis site: large intestine Diverticulitis bleeding: without bleeding Qualified Code(s): K57.20 - Diverticulitis of large intestine with perforation and abscess without bleeding PLAN: I am following this patient in conjunction with Dr. Nuñez in Dr. Liao's absence. She has independently evaluated this patient. Labs reviewed. Replace phosphorous WBC increased today. Continue Zosyn, renewed. Repeat labs tomorrow morning. If WBC continue to increase, a CT scan of the ab/pel will be ordered tomorrow Continue clear liquid diet today Stop IV fluids Continue with ambulation We will continue to monitor this patient Charges/Coding Visit Charges Inpatient E&M: 83413 Subs Hosp L1 (post-op)
[2024-05-18] MEDS: oxyCODONE 5 MG Tablet 10 MG PO ×3 (07:57→22:20)
[2024-05-18] MEDS: Enoxaparin 40 MG/0.4 ML Syringe SC (07:58)
[2024-05-18] MEDS: Pantoprazole Sodium 40 MG Tablet PO (07:58)
[2024-05-18] MEDS: Loratadine 10 MG Tablet PO ×2 (07:58)
[2024-05-18] MEDS: Lisinopril 10 MG Tablet PO (07:58)
[2024-05-18 08:00] VITALS: BP 149/73; PULSE 79; RESP 18; TEMP 37.7; O2SAT 95
[2024-05-18] MEDS: Potassium Phosphate 40 MM in 0.9% Normal Saline (500mL Bag) 500 ML 62.5 MM IV (12:38)
[2024-05-18] MEDS: Ensure Plus High Protein 120 ML LIQUID PO (12:48)
[2024-05-18 13:16] LABS: Bedside Glucose 103 mg/dL (74-106)
[2024-05-18] MEDS: Morphine 4 MG/ML Syringe IV (14:28)
[2024-05-18 14:35] VITALS: BP 148/81; PULSE 89; RESP 18; TEMP 37.2; O2SAT 93
[2024-05-18] MEDS: Acetaminophen 325 MG Tablet 650 MG PO ×2 (14:39→22:21)
[2024-05-18 16:00] VITALS: BP 143/77; PULSE 83; RESP 18; TEMP 36.8; O2SAT 93
[2024-05-18 19:02] LABS: Bedside Glucose 100 mg/dL (74-106)
[2024-05-18 22:15] VITALS: BP 167/74; PULSE 72; RESP 20; TEMP 36.8; O2SAT 93
[2024-05-19 00:41] LABS: Bedside Glucose 93 mg/dL (74-106)
[2024-05-19 01:02] VITALS: BP 169/81; PULSE 66; RESP 20; TEMP 36.8; O2SAT 93
[2024-05-19 05:12] VITALS: BP 164/85; PULSE 73; RESP 18; TEMP 36.9; O2SAT 93
[2024-05-19] MEDS: Acetaminophen 325 MG Tablet 650 MG PO ×3 (05:39→21:06)
[2024-05-19] MEDS: oxyCODONE 5 MG Tablet 10 MG PO ×3 (05:39→21:06)
[2024-05-19] MEDS: Piperacil/Tazobactam 3.375 GM in 0.9% Normal Saline (50mL MB+) 50 ML IV ×3 (05:41→21:07)
[2024-05-19 06:35] LABS: Absolute Lymphocyte Count 2.59 X10^3/uL (0.83-4.51); Absolute Neutrophil Count 11.6 X10^3/uL (2.0-7.7); Basophil# 0.09 X10^3/uL; Basophil% 0.6 % (0-1); Eosinophil# 0.47 X10^3/uL; Eosinophils% 2.9 % (0-5); Hematocrit 34.3 % (37-47); Hemoglobin 11.2 g/dL (12.0-15.0); Lymphocyte # 2.59 X10^3/ul (0.83-4.51); Lymphocyte % 16.1 % (19-41); Mean Corp Hgb Conc 32.7 g/dL (32-36); Mean Corpuscular Hgb 31.6 pg (27.0-32.0); Mean Corpuscular Volume 96.9 fL (81-99); Mean Platelet Vol. 9.4 fl (6.2-12.0); Monocyte# 1.14 X10^3/uL; Monocyte% 7.1 % (0-10); NRBC Flagged by Analyzer 0 % (0-5); Neutrophil # 11.62 X10^3/uL (2.7-7.7); Neutrophil % 72.2 % (47-70); Platelet Count 495 K/mm3 (150-450); RBC Distribution Width CV 12.4 % (11.6-14.6); RBC Distribution Width SD 44.9 fl (35.1-43.9); Red Blood Count 3.54 M/mm3 (4.2-5.4); White Blood Count 16.1 K/mm3 (4.4-11.0)
[2024-05-19 07:00] LABS: Anion Gap 7 (5-15); BUN 5 mg/dL (7-18); BUN/Creat Ratio 9.2 RATIO (10-20); Calcium,Total 8.3 mg/dL (8.5-10.1); Chloride 111 mmol/L (98-107); Creatinine, Serum 0.54 mg/dL (0.55-1.02); EST Glomerular Filtration Rate 119 mL/min (>60); Est Glom Filt Rate - Afr Amer 143 mL/min (>60); Estimated Creatinine Clearance 53.23 ml/min; Glucose 79 mg/dL (74-106); Magnesium 1.8 mg/dL (1.6-2.6); Phosphorus 3.7 mg/dL (2.5-4.9); Potassium 3.8 mmol/L (3.5-5.1); Sodium Level 140 mmol/L (136-145)
[2024-05-19 08:00] VITALS: BP 156/77; PULSE 76; RESP 16; TEMP 37.2; O2SAT 93
[2024-05-19] MEDS: Pantoprazole Sodium 40 MG Tablet PO (08:02)
[2024-05-19] MEDS: Lisinopril 10 MG Tablet PO (08:02)
[2024-05-19] MEDS: Enoxaparin 40 MG/0.4 ML Syringe SC (08:03)
--- NOTE | 2024-05-19 08:16 | PN.SURG_ITS ---
Subjective Subjective Pt had multiple BM and flatus x 2, denies n/v on clears Objective Data Objective Data Vital Signs: Vital Signs Temp Pulse Resp BP Pulse Ox O2 Del Method O2 Flow Rate 98.4 F 73 18 164/85 H 93 Room Air 2 05/19/24 05:12 05/19/24 05:12 05/19/24 05:12 05/19/24 05:12 05/19/24 05:12 05/19/24 05:12 05/18/24 02:36 Oxygen Flow Rate (L/min) 2 Oxygen Delivery Method Room Air Weight: 119 lb 0.794 oz Body Mass Index (BMI) 21.7 Intake & Output: Intake and Output for Last 24 Hours 05/17/24 05/18/24 05/19/24 23:59 23:59 23:59 Intake Total 3726 / 3726 3010.3333 / 3010.3333 50 / 50 Output Total 90 / 90 215 / 215 40 / 40 Balance 3636 / 3636 2795.3333 / 2795.3333 Lab / Micro Data 05/19/24 05:15 05/19/24 05:15 Labs: Laboratory Results - last 24 hr 05/18/24 12:53: POC Glucose 103 05/18/24 18:42: POC Glucose 100 05/18/24 23:02: POC Glucose 93 05/19/24 05:15: WBC 16.1 H, RBC 3.54 L, Hgb 11.2 L, Hct 34.3 L, MCV 96.9, MCH 31.6, MCHC 32.7, RDW Std Deviation 44.9 H, RDW Coeff of Nini 12.4, Plt Count 495 H, MPV 9.4, Immature Gran % (Auto) 1.100 H, Neut % (Auto) 72.2 H, Lymph % (Auto) 16.1 L, [place] % (Auto) 7.1, Eos % (Auto) 2.9, Baso % (Auto) 0.6, Absolute Neuts (auto) 11.6 H, Absolute Lymphs (auto) 2.59, Nucleated RBC % 0, Sodium 140, Potassium 3.8, Chloride 111 H, Carbon Dioxide 22.0, Anion Gap 7, BUN 5 L, C reatinine 0.54 L, Estim Creat Clear Calc 53.23, Est GFR (MDRD) Af Amer 143, Est GFR (MDRD) Non-Af 119, BUN/Creatinine Ratio 9.2 L, Glucose 79, Calcium 8.3 L, Phosphorus 3.7, Magnesium 1.8 Physical Exam Const alert, oriented x3 and no apparent distress Resp clear to auscultation bilaterally Cardio regular rate GI GI Narrative: Abdomen- soft, ttp near incision, no PS. BHAKTI drain with serous fluid noted. No erythema or signs of infection noted. Assessment & Plan Assessment/Plan (1) Diverticulitis of intestine with abscess: QUALIFIERS: Diverticulitis bleeding: without bleeding D iverticulitis site: large intestine Qualified Code(s): K57.20 - Diverticulitis of large intestine with perforation and abscess without bleeding PLAN: +flatus x2, multiple loose BM will advance to fulls WBC decreased slightly today. Continue Zosyn Repeat labs tomorrow morning. If WBC continue to increase, a CT scan of the ab/pel will be ordered tomorrow Continue with ambulation/OOB cont DVT prophylaxis
[2024-05-19 08:41] LABS: Bedside Glucose 69 mg/dL (74-106)
[2024-05-19 09:51] LABS: Bedside Glucose 102 mg/dL (74-106)
--- NOTE | 2024-05-19 11:06 | CASEMGMT ---
RN CM to pt room at this time to discuss DC planning. At this time, the plan is to DC the pt over the weekend. Pt may go home with a BHAKTI Drain. Pt states that she is able to manage this on her own and will plan to monitor the output. Pt is aware that if she has any questions or concerns she can have the RN provide education as needed. Per the PT note, the pt did very well and does not require any additional therapy. Pt states to this RN CM that she lives alone but feels safe and comfortable discharging home over the weekend without any additional support/ therapy. Pt states that she has family close. Pt denies any further questions or concerns to this RN CM.
[2024-05-19 12:41] LABS: Bedside Glucose 84 mg/dL (74-106)
[2024-05-19 14:00] VITALS: BP 155/71; PULSE 74; RESP 14; TEMP 37.1; O2SAT 94
--- NOTE | 2024-05-19 16:05 | NURSING ---
pt has ambulated walters multiple times today. using i.s and pickle. reports bm and (+) flatus. tolerating full liquid diet but does not have much appetite. family has brought in protein drinks from home (ok by dr douglass) because pt does not care for ours.
[2024-05-19 18:04] LABS: Bedside Glucose 93 mg/dL (74-106)
[2024-05-19 21:10] VITALS: BP 160/66; PULSE 75; RESP 20; TEMP 36.9; O2SAT 93
[2024-05-19 22:08] LABS: Bedside Glucose 94 mg/dL (74-106)
[2024-05-20 05:27] VITALS: BP 168/76; PULSE 72; RESP 18; TEMP 36.6; O2SAT 97
[2024-05-20] MEDS: Acetaminophen 325 MG Tablet 650 MG PO ×3 (05:29→20:34)
[2024-05-20] MEDS: oxyCODONE 5 MG Tablet 10 MG PO ×3 (05:30→20:34)
[2024-05-20] MEDS: Piperacil/Tazobactam 3.375 GM in 0.9% Normal Saline (50mL MB+) 50 ML IV ×3 (05:37→20:34)
[2024-05-20 07:16] LABS: Absolute Lymphocyte Count 1.84 X10^3/uL (0.83-4.51); Absolute Neutrophil Count 11.9 X10^3/uL (2.0-7.7); Basophil# 0.09 X10^3/uL; Basophil% 0.6 % (0-1); Eosinophil# 0.38 X10^3/uL; Eosinophils% 2.5 % (0-5); Hematocrit 33.5 % (37-47); Hemoglobin 11.2 g/dL (12.0-15.0); Lymphocyte # 1.84 X10^3/ul (0.83-4.51); Mean Corp Hgb Conc 33.4 g/dL (32-36); Mean Corpuscular Hgb 31.5 pg (27.0-32.0); Mean Corpuscular Volume 94.4 fL (81-99); Monocyte# 0.95 X10^3/uL; Monocyte% 6.2 % (0-10); NRBC Flagged by Analyzer 0 % (0-5); Neutrophil # 11.89 X10^3/uL (2.7-7.7); Neutrophil % 77.3 % (47-70); Platelet Count 496 K/mm3 (150-450); RBC Distribution Width CV 12.4 % (11.6-14.6); RBC Distribution Width SD 43.2 fl (35.1-43.9); Red Blood Count 3.55 M/mm3 (4.2-5.4); White Blood Count 15.4 K/mm3 (4.4-11.0)
[2024-05-20 07:46] LABS: Anion Gap 7 (5-15); BUN 5 mg/dL (7-18); BUN/Creat Ratio 10.2 RATIO (10-20); Calcium,Total 7.8 mg/dL (8.5-10.1); Chloride 107 mmol/L (98-107); Creatinine, Serum 0.49 mg/dL (0.55-1.02); EST Glomerular Filtration Rate 134 mL/min (>60); Est Glom Filt Rate - Afr Amer 162 mL/min (>60); Estimated Creatinine Clearance 53.23 ml/min; Glucose 83 mg/dL (74-106); Magnesium 1.8 mg/dL (1.6-2.6); Phosphorus 3.2 mg/dL (2.5-4.9); Potassium 3.5 mmol/L (3.5-5.1); Sodium Level 138 mmol/L (136-145)
[2024-05-20] MEDS: Enoxaparin 40 MG/0.4 ML Syringe SC (07:50)
[2024-05-20] MEDS: Lisinopril 10 MG Tablet PO (07:50)
[2024-05-20] MEDS: Pantoprazole Sodium 40 MG Tablet PO (07:51)
--- NOTE | 2024-05-20 07:56 | PCM.PN.SRG ---
Subjective Subjective Patient seen and examined during AM rounds. She is found sitting out of bed in the chair. She quickly declares that she is feeling better today. She shares that she had been hiccuping yesterday but that is gone today. She also confirms that she is passing gas and having more regular bowel movements. She states that she is walking but confesses that she could probably be doing more. Lastly she states that her pain is better controlled. Objective Data Objective Data Vital Signs: Vital Signs Temp Pulse Resp BP Pulse Ox O2 Del Method O2 Flow Rate 97.9 F 72 18 168/76 H 97 Room Air 2 05/20/24 05:27 05/20/24 05:27 05/20/24 05:27 05/20/24 05:27 05/20/24 05:27 05/20/24 07:43 05/18/24 02:36 Oxygen Flow Rate (L/min) 2 Oxygen Delivery Method Room Air Weight: 119 lb 0.794 oz Body Mass Index (BMI) 21.7 Intake & Output: Intake and Output for Last 24 Hours 05/18/24 05/19/24 05/20/24 23:59 23:59 23:59 Intake Total 3010.3333 / 3010.3333 200 / 200 50 / 50 Output Total 215 / 215 200 / 200 65 / 65 Balance 2795.3333 / 2795.3333 0 / 0 -15 / -15 Lab / Micro Data 05/20/24 06:26 05/20/24 06:26 Labs: Laboratory Results - last 24 hr 05/19/24 08:12: POC Glucose 69 L 05/19/24 09:32: POC Glucose 102 05/19/24 12:20: POC Glucose 84 05/19/24 17:41: POC Glucose 93 05/19/24 21:16: POC Glucose 94 05/20/24 06:26: WBC 15.4 H, RBC 3.55 L, Hgb 11.2 L, Hct 33.5 L, MCV 94.4, MCH 31.5, MCHC 33.4, RDW Std Deviation 43.2, RDW Coeff of Nini 12.4, Plt Count 496 H, MPV 9.0, Immature Gran % (Auto) 1.400 H, Neut % (Auto) 77.3 H, Lymph % (Auto) 12.0 L, [place] % (Auto) 6.2, Eos % (Auto) 2.5, Baso % (Auto) 0.6, Absolute Neuts (auto) 11.9 H, Absolute Lymphs (auto) 1.84, Nucleated RBC % 0, Sodium 138, Potassium 3.5, Chloride 107, Carbon Dioxide 24.0, Anion Gap 7, BUN 5 L, Creatinine 0.49 L, Estim Creat Clear Calc 53.23, Est GFR (MDRD) Af Amer 162, Est GFR (MDRD) Non-Af 134, BUN/Creatinine Ratio 10.2, Glucose 83, Calcium 7.8 L, Phosphorus 3.2, Magnesium 1.8 Physical Exam Const oriented x3 and no apparent distress Resp normal respiratory effort GI GI Narrative: Dressing across lower laparotomy incision with some dried serous drainage, no active drainage from the wound which remains covered with Steri-Strips. Patient's abdomen is nondistended, soft, and mildly tender along the midportion of the incision with palpation. Right lower quadrant drain is draining simple serous fluid. Assessment & Plan Assessment/Plan (1) Diverticulitis of intestine with abscess: QUALIFIERS: Diverticulitis site: large intestine Diverticulitis bleeding: without bleeding Qualified Code(s): K57.20 - Diverticulitis of large intestine with perforation and abscess without bleeding PLAN: Patient is postoperative day 5 from lap converted to open sigmoidectomy. Patient continues to progress clinically. Passing more regular flatus as well as ongoing loose bowel movements. Reported hiccups yesterday that are now resolved today. Improved pain control. Tolerating a full liquid diet so we will advance to a transitional today. She remains afebrile and her white count has decreased slightly from a bump yesterday. She is on ongoing empiric antibiotic therapy with Zosyn postoperatively. Her incision and drain remain appropriate. Plan is to continue antibiotics until white count returns normal. Patient required replacement of electrolytes today so we will recheck those tomorrow. Patient encouraged to increase her activity tolerance.. Mode Shaw MD General Surgery Endocrine Surgery Pager: [facility] [address] [place] [address], [facility], [address] [place] [id number] Office: [phone] Charges/Coding Visit Charges Inpatient E&M: 09635 Subs Hosp L2
[2024-05-20 10:00] VITALS: BP 158/75; PULSE 73; RESP 18; TEMP 36.3; O2SAT 94
[2024-05-20 12:23] LABS: Bedside Glucose 110 mg/dL (74-106)
[2024-05-20 15:00] VITALS: BP 113/86; PULSE 77; RESP 18; TEMP 36.6; O2SAT 95
[2024-05-20] MEDS: Magnesium Sulfate 2 GM in Dextrose 5%-Water (100mL Bag) 100 ML IV (17:07)
[2024-05-20 17:39] LABS: Bedside Glucose 111 mg/dL (74-106)
[2024-05-20 20:33] VITALS: BP 153/75; PULSE 66; RESP 18; TEMP 36.7; O2SAT 94
[2024-05-20 21:09] LABS: Bedside Glucose 102 mg/dL (74-106)
[2024-05-21] VITALS (7 sets, daily range): BP systolic 128–155; BP diastolic 64–78; PULSE 67–78; RESP 18; TEMP 36.6–37; O2SAT 93–94
[2024-05-21] MEDS: oxyCODONE 5 MG Tablet 10 MG PO ×4 (04:26→23:38)
[2024-05-21] MEDS: Acetaminophen 325 MG Tablet 650 MG PO ×4 (04:26→23:38)
[2024-05-21] MEDS: Piperacil/Tazobactam 3.375 GM in 0.9% Normal Saline (50mL MB+) 50 ML IV ×3 (04:27→21:06)
[2024-05-21 05:22] LABS: Absolute Lymphocyte Count 2.55 X10^3/uL (0.83-4.51); Absolute Neutrophil Count 10.8 X10^3/uL (2.0-7.7); Basophil# 0.09 X10^3/uL; Basophil% 0.6 % (0-1); Eosinophils% 2.6 % (0-5); Hematocrit 33.5 % (37-47); Hemoglobin 11.1 g/dL (12.0-15.0); Lymphocyte # 2.55 X10^3/ul (0.83-4.51); Lymphocyte % 16.6 % (19-41); Mean Corp Hgb Conc 33.1 g/dL (32-36); Mean Corpuscular Hgb 31.1 pg (27.0-32.0); Mean Corpuscular Volume 93.8 fL (81-99); Mean Platelet Vol. 9.2 fl (6.2-12.0); Monocyte# 1.26 X10^3/uL; Monocyte% 8.2 % (0-10); NRBC Flagged by Analyzer 0 % (0-5); Neutrophil # 10.81 X10^3/uL (2.7-7.7); Neutrophil % 70.6 % (47-70); Platelet Count 524 K/mm3 (150-450); RBC Distribution Width CV 12.5 % (11.6-14.6); Red Blood Count 3.57 M/mm3 (4.2-5.4); White Blood Count 15.3 K/mm3 (4.4-11.0)
[2024-05-21 05:50] LABS: Anion Gap 6 (5-15); BUN 6 mg/dL (7-18); BUN/Creat Ratio 11.1 RATIO (10-20); Calcium,Total 7.9 mg/dL (8.5-10.1); Chloride 108 mmol/L (98-107); Creatinine, Serum 0.54 mg/dL (0.55-1.02); EST Glomerular Filtration Rate 119 mL/min (>60); Est Glom Filt Rate - Afr Amer 144 mL/min (>60); Estimated Creatinine Clearance 53.23 ml/min; Glucose 88 mg/dL (74-106); Phosphorus 3.2 mg/dL (2.5-4.9); Potassium 3.5 mmol/L (3.5-5.1); Sodium Level 139 mmol/L (136-145)
--- NOTE | 2024-05-21 08:00 | PN.SURG_ITS ---
Subjective Subjective Patient seen and examined during AM rounds. She is found sitting out of bed in the chair. She states that things were her same largely unchanged. She continues to have loose bowel movements. She is tolerating her diet without difficulty. She does remark that she has had some coughing today with greenish sputum production Objective Data Objective Data Vital Signs: Vital Signs Temp Pulse Resp BP Pulse Ox O2 Del Method O2 Flow Rate 98.4 F 67 18 155/64 H 93 Room Air 2 05/21/24 04:23 05/21/24 04:23 05/21/24 04:23 05/21/24 04:23 05/21/24 04:23 05/21/24 04:23 05/18/24 02:36 Oxygen Flow Rate (L/min) 2 Oxygen Delivery Method Room Air Weight: 119 lb 0.794 oz Body Mass Index (BMI) 21.7 Intake & Output: Intake and Output for Last 24 Hours 05/19/24 05/20/24 05/21/24 23:59 23:59 23:59 Intake Total 200 / 200 254 / 254 50 / 50 Output Total 200 / 200 165 / 165 65 / 65 Balance 0 / 0 89 / 89 -15 / -15 Lab / Micro Data 05/21/24 04:43 05/21/24 04:43 Labs: Laboratory Results - last 24 hr 05/20/24 12:04: POC Glucose 110 H 05/20/24 17:19: POC Glucose 111 H 05/20/24 20:26: POC Glucose 102 05/21/24 04:43: WBC 15.3 H, RBC 3.57 L, Hgb 11.1 L, Hct 33.5 L, MCV 93.8, MCH 31.1, MCHC 33.1, RDW Std Deviation 43.0, RDW Coeff of Nini 12.5, Plt Count 524 H, MPV 9.2, Immature Gran % (Auto) 1.400 H, Neut % (Auto) 70.6 H, Lymph % (Auto) 16.6 L, [place] % (Auto) 8.2, Eos % (Auto) 2.6, Baso % (Auto) 0.6, Absolute Neuts (auto) 10.8 H, Absolute Lymphs (auto) 2.55, Nucleated RBC % 0, Sodium 139, Potassium 3.5, Chloride 108 H, Carbon Dioxide 25.0, Anion Gap 6, BUN 6 L, C reatinine 0.54 L, Estim Creat Clear Calc 53.23, Est GFR (MDRD) Af Amer 144, Est GFR (MDRD) Non-Af 119, BUN/Creatinine Ratio 11.1, Glucose 88, Calcium 7.9 L, Phosphorus 3.2, Magnesium 2.0 Physical Exam Const oriented x3 and no apparent distress Resp normal respiratory effort GI GI Narrative: Late distended, midline laparotomy with just a few remaining Steri-Strips intact. There is no surrounding erythema or spontaneous drainage. Patient does have some tenderness with palpation particularly of the left lower abdominal quadrant which appears more pronounced than prior. Right lower quadrant operative drain continues with serous output. Assessment & Plan Assessment/Plan (1) Diverticulitis of intestine with abscess: QUALIFIERS: Diverticulitis site: large intestine Diverticulitis bleeding: without bleeding Qualified Code(s): K57.20 - Diverticulitis of large intestine with perforation and abscess without bleeding PLAN: Patient is postoperative day 6 from lap converted to open sigmoidectomy. Patient appears largely clinically unchanged today apart from reporting a cough productive of green sputum. Pain is reported is overall controlled. She appears to be tolerating her transition to a transitional diet without difficulty. She remains afebrile but her white count appears to have hit a plateau. She remains with ongoing empiric antibiotic Zosyn postoperatively. Her incision and drain remain appropriate but there is perhaps some more tenderness on the left. I shared with Mrs. Lino that we should obtain a CT scan today to follow-up her persistent leukocytosis. She is certainly at risk for a postoperative abscess and while her drain is reassuring it could be simply out of the area of infection and her exam suggests slightly more discomfort than would be expected at this point. If a drainable fluid collection is identified we will plan for percutaneous drainage by IR tomorrow and make patient n.p.o. at midnight. Given her reports of a new productive cough I am obtaining a chest x- ray alongside of her CT of the abdomen and pelvis. Mode Shaw MD General Surgery Endocrine Surgery Pager: [facility] [address] [place] [address], [facility], [address] [place] [address] Office: [phone] Charges/Coding Visit Charges Inpatient E&M: 45895 Subs Hosp L2
--- NOTE | 2024-05-21 08:44 | CT_ITS ---
EXAM: CT ABDOMEN AND PELVIS WITH INTRAVENOUS CONTRAST CLINICAL INDICATION: s/p sigmoid colectomy r/o abscess TECHNIQUE: Helically acquired images were obtained of the abdomen and pelvis with intravenous contrast. This CT exam was performed using one or more of the following dose reduction techniques: automated exposure control, adjustment of the mA and/or kV according to patient size, and/or use of iterative reconstruction technique. CONTRAST: IV 75mL [id number] COMPARISON: CT abdomen and pelvis 05/12/2024 and 05/10/2024, CT Abdomen Pelvis dated 05/15/2024 FINDINGS: LOWER THORAX: Persistent small bilateral pleural effusions with mild compression atelectasis of the lower lobes. ABDOMEN: LIVER: Normal. Homogeneous. No focal mass. GALLBLADDER AND BILE DUCTS: Normal. No calcified gallstones. No gallbladder distention or wall edema. No intra- or extrahepatic biliary ductal dilation. PANCREAS: Normal. No focal cystic or solid mass. SPLEEN: Normal. Normal size without focal cystic or solid mass. ADRENALS: Normal. No nodules. KIDNEYS AND URETERS: Stable bilateral renal cysts. No specific follow-up indicated. Normal renal size and position. No hydronephrosis. STOMACH AND BOWEL: Normal. No evidence of bowel obstruction or significant ileus. PELVIS: APPENDIX: No evidence of acute appendicitis. BLADDER: Air present within the urinary bladder likely related to recent instrumentation. REPRODUCTIVE: Unremarkable as visualized. No mass. ABDOMEN and PELVIS: INTRAPERITONEAL SPACE: Normal. No ascites or other fluid collection. No free air. BONES/JOINTS: No suspicious lytic or blastic abnormality. SOFT TISSUES: Prominent diffuse edema of the subcutaneous tissues again seen. No discrete abdominal or pelvic wall hernia. VASCULATURE: Normal. Abdominal aorta is non-dilated. LYMPH NODES: Normal. No enlarged lymph nodes. TUBES, LINES AND DEVICES: Interval surgical changes at the rectosigmoid junction noted with drainage catheter left in place extending along the cul-de-sac. OTHER FINDINGS: Previously noted pelvic abscess is no longer present. CT/Abdomen/Pelvis WITH Contrast IMPRESSION: 1. Interval surgical repair of the sigmoid colon and evacuation of the pelvic abscess. 2. Residuals small bilateral pleural effusions and diffuse subcutaneous edema of the torso. Electronically Signed: Dirk Morales MD at 14:15 EDT ,
[2024-05-21] MEDS: Enoxaparin 40 MG/0.4 ML Syringe SC (10:19)
[2024-05-21] MEDS: Lisinopril 10 MG Tablet PO (10:19)
[2024-05-21] MEDS: Pantoprazole Sodium 40 MG Tablet PO (10:20)
[2024-05-21] MEDS: Loratadine 10 MG Tablet PO (10:20)
--- NOTE | 2024-05-21 12:55 | RAD_ITS ---
EXAM: XR CHEST, 1 VIEW CLINICAL INDICATION: f/u productive cough TECHNIQUE: Frontal view of the chest. COMPARISON: XR Chest dated 01/08/2015 FINDINGS: LUNGS AND PLEURAL SPACES: Small bilateral pleural effusions. Left lower lobe pulmonary opacity may represent pneumonia or atelectasis. HEART: Normal heart size. MEDIASTINUM: No mediastinal or hilar mass. BONES/JOINTS: No acute abnormality. RAD/Chest 1 View (Portable) IMPRESSION: Left lower lobe pneumonia/atelectasis. Small bilateral pleural effusions. Electronically Signed: Dirk Morales MD at 17:01 EDT ,
[2024-05-21] MEDS: 0.9% Saline Lock 10 ML Syringe IV ×2 (14:06→17:14)
[2024-05-21] MEDS: Furosemide 20 MG/2 ML VIAL IV (17:14)
[2024-05-21 22:56] LABS: Bedside Glucose 99 mg/dL (74-106)
[2024-05-22 05:25] VITALS: BP 143/74; PULSE 68; RESP 18; TEMP 36.9; O2SAT 94
[2024-05-22] MEDS: Piperacil/Tazobactam 3.375 GM in 0.9% Normal Saline (50mL MB+) 50 ML IV (05:35)
[2024-05-22 05:36] LABS: Absolute Lymphocyte Count 2.25 X10^3/uL (0.83-4.51); Absolute Neutrophil Count 10.9 X10^3/uL (2.0-7.7); Basophil# 0.08 X10^3/uL; Basophil% 0.5 % (0-1); Eosinophil# 0.44 X10^3/uL; Eosinophils% 2.9 % (0-5); Hematocrit 32.1 % (37-47); Hemoglobin 10.8 g/dL (12.0-15.0); Lymphocyte # 2.25 X10^3/ul (0.83-4.51); Lymphocyte % 14.9 % (19-41); Mean Corp Hgb Conc 33.6 g/dL (32-36); Mean Corpuscular Hgb 31.5 pg (27.0-32.0); Mean Corpuscular Volume 93.6 fL (81-99); Mean Platelet Vol. 9.3 fl (6.2-12.0); Monocyte# 1.16 X10^3/uL; Monocyte% 7.7 % (0-10); NRBC Flagged by Analyzer 0 % (0-5); Neutrophil # 10.94 X10^3/uL (2.7-7.7); Neutrophil % 72.7 % (47-70); Platelet Count 468 K/mm3 (150-450); RBC Distribution Width CV 12.9 % (11.6-14.6); Red Blood Count 3.43 M/mm3 (4.2-5.4); White Blood Count 15.1 K/mm3 (4.4-11.0)
[2024-05-22] MEDS: levoFLOXacin 750 MG Tablet PO (06:31)
[2024-05-22 06:57] LABS: Bedside Glucose 90 mg/dL (74-106)
[2024-05-22 07:41] VITALS: BP 169/70; PULSE 75; RESP 16; TEMP 36.6; O2SAT 95
[2024-05-22 09:14] VITALS: BP 118/90; PULSE 85; O2SAT 94
[2024-05-22] MEDS: 0.9% Saline Lock 10 ML Syringe IV (09:16)
[2024-05-22] MEDS: Ondansetron 4 MG/2 ML Vial IV (09:16)
[2024-05-22] MEDS: Enoxaparin 40 MG/0.4 ML Syringe SC (09:41)
[2024-05-22] MEDS: Acetaminophen 325 MG Tablet 650 MG PO (09:41)
[2024-05-22] MEDS: Lisinopril 10 MG Tablet PO (09:41)
[2024-05-22] MEDS: Loratadine 10 MG Tablet PO (09:42)
[2024-05-22] MEDS: oxyCODONE 5 MG Tablet 10 MG PO (09:42)
--- NOTE | 2024-05-22 11:08 | PCM.DC.SUM ---
Providers Date of Admission: 05/12/24 Primary Care Physician: Dr. Ashley Richardson MD Reason For Visit: DIVERTICULITIS Diagnosis Discharge Diagnosis (1) Diverticulitis of intestine with abscess: Status: Acute Code(s): K57.80 - Diverticulitis of intestine, part unspecified, with perforation and abscess without bleeding Qualifiers: Diverticulitis site: large intestine Diverticulitis bleeding: without bleeding Qualified Code(s): K57.20 - Diverticulitis of large intestine with perforation and abscess without bleeding Plan: The patient was taken for sigmoid colectomy yesterday. She tolerated the procedure well. She says she feels comfortable today with no nausea or vomiting. She has been afebrile since surgery with no tachycardia. Her white count did increase but this may have been from disrupting the abscess. Clinically she seems to be doing well with stable vitals. Continue antibiotics until white count returns normal. Continue n.p.o. and IV fluids. Mariusz Liao MD Pager: [facility] [address] [place] [address], [address] [place] [address] Office: Medications at Discharge Home Medications lisinopril 10 mg tablet 10 mg PO DAILY 01/08/15 multivitamin with folic acid 400 mcg tablet (Thera) 1 tab PO DAILY 01/08/15 calcium carbonate 600 mg-vitamin D3 12.5 mcg (500 unit) capsule (Calcium 600 with Vitamin D3) 1 cap PO DAILY 05/12/24 fexofenadine 180 mg tablet (Winter Allergy) 180 mg PO DAILY 05/12/24 levofloxacin 750 mg tablet 750 mg PO DAILY 7 days #7 tabs 05/22/24 ondansetron 4 mg disintegrating tablet 4 mg PO Q8H PRN nausea and vomiting #10 tabs 05/22/24 oxycodone 5 mg tablet 5 mg PO Q6H PRN pain 5 days #10 tabs 05/22/24 Hospital Course Operations colectomy Procedures None Summary of Care Provided Hospital Course: Patient was admitted with diverticulitis and abscess. She was watched for the weekend and started on antibiotics and repeat CT showed that the abscess was growing. She was then taken for surgery and had a laparoscopic converted to open sigmoid colectomy with anastomosis. Postoperatively she had complication of postoperative ileus and then left lower lobe pneumonia. She had a CT scan due to leukocytosis that was normal. After starting on Levaquin I will discharge the patient home and she will follow-up with me in 2 weeks. She will have a CBC in a few days. Weight / BMI Weight Weight: 119 lb 0.794 oz Body Mass Index (BMI) 21.7 ABG / Lab / Microbiology Data 05/22/24 04:11 05/21/24 04:43 Laboratory: Laboratory Results - last 24 hr 05/21/24 21:26: POC Glucose 99 05/22/24 04:11: WBC 15.1 H, RBC 3.43 L, Hgb 10.8 L, Hct 32.1 L, MCV 93.6, MCH 31.5, MCHC 33.6, RDW Std Deviation 44.0 H, RDW Coeff of Nini 12.9, Plt Count 468 H, MPV 9.3, Immature Gran % (Auto) 1.300 H, Neut % (Auto) 72.7 H, Lymph % (Auto) 14.9 L, [place] % (Auto) 7.7, Eos % (Auto) 2.9, Baso % (Auto) 0.5, Absolute Neuts (auto) 10.9 H, Absolute Lymphs (auto) 2.25, Nucleated RBC % 0 05/22/24 06:38: POC Glucose 90 Radiography Diagnostic Testing: Radiology Impression Abdomen/Pelvis CT 05/21/24 08:44 IMPRESSION: 1. Interval surgical repair of the sigmoid colon and evacuation of the pelvic abscess. 2. Residuals small bilateral pleural effusions and diffuse subcutaneous edema of the torso. Electronically Signed: Dirk Morales MD at 14:15 EDT , Chest X-Ray 05/21/24 12:55 IMPRESSION: Left lower lobe pneumonia/atelectasis. Small bilateral pleural effusions. Electronically Signed: Dirk Morales MD at 17:01 EDT , D/C Instructions Discharge Diet: Light diet - advance as tolerated Discharge Activity: May Not Drive (while on narcotics) and May Shower Lifting Restrictions: 15 lbs for 6 weeks Call your doctor if your incision/area has: Continuous Slow Oozing, Sudden Increased Bleeding, Increased Pain/ Swelling, Increased Redness, Foul Smelling Discharge and Swelling at the incision site Call your doctor if you observe: Fever of 101 or Higher Cleanse incision/area with: Soap & Water Additional Dressing/Incision Instructions: Alternate Tylenol and Ibuprofen for pain, Oxycodone for breakthrough pain Please Follow Up With: Mariusz Liao MD When: Please call to schedule 2 week follow up appointment. [phone] Meaningful Use Info Meaningful Use Meaningful Use Diagnoses (Choose all that apply): None applicable Ischemic Stroke Statin Dosing Therapy Reference: STATIN DOSE THERAPY REFERENCE: * Patients > 75 years receive moderate or high dose statin therapy. * Patients 75 years or YOUNGER should receive HIGH intensity statin dose unless contraindicated. You will be required to document reason for non-treatment if statin daily dose does not meet guidelines. HIGH DOSE STATIN THERAPY DAILY Atorvastatin > than or = to 40 mg Rosuvastatin > than or = to 20 mg Amlodipine + Atorvastatin > than or = to 2.5/40 mg Ezetimibe + Simvastatin 10/80 mg Simvastatin 80mg Discharge Plan Admission Admit Date/Time: 05/12/24 16:22 Attending Provider: Mariusz Liao Primary Care Provider: Ashley Richardson Discharge Orders/Prescriptions Prescriptions: New levofloxacin 750 mg Tablet 750 mg PO DAILY 7 Days Qty: 7 0RF oxycodone 5 mg Tablet 5 mg PO Q6H PRN (Reason: pain) 5 Days Qty: 10 0RF ondansetron 4 mg tablet,disintegrating 4 mg PO Q8H PRN (Reason: nausea and vomiting) Qty: 10 0RF Continued lisinopril 10 MG tablet 10 mg PO DAILY multivitamin with folic acid [Thera] 1 TABLET tablet 1 tab PO DAILY fexofenadine [Winter Allergy] 180 mg tablet 180 mg PO DAILY calcium carbonate-vitamin D3 [Calcium 600 with Vitamin D3] 600 mg-12.5 mcg (500 unit) capsule 1 cap PO DAILY Patient Comments: pt takes a vitamin d with calcium but unsure of strength Referrals / Follow Up: Ashley Richardson MD [Primary Care Provider] - Disposition Disposition (needs filled in before D/C Order can be placed): Home, Self Care
--- NOTE | 2024-05-22 11:38 | CASEMGMT ---
ASAEL CM into pt room to discuss DC. Pt states going to son and DIL for a couple days. Denies any question, concerns or needs at this time.
--- NOTE | 2024-05-22 11:43 | PHA.DC_ITS ---
Pharmacy [facility] has performed discharge medication reconciliation and counseling for this patient. The patient's discharge medication list was reviewed for discrepancies and discrepancies were resolved. The patient was counseled on the following discharge medications and changes in medications for homegoing were reviewed. 1. LEVAQUIN 2. OXYCODONE 3. ZOFRAN The Reason for Use, instructions for use, and potential side effects were reviewed for all new medications. The patient's questions regarding all of their medications were answered. The patient was able to verbally demonstrate an understanding of their discharge medications. The patient was counselled by Nathan Johnson PharmD Candidate Medications at Discharge Home Medications lisinopril 10 mg tablet 10 mg PO DAILY 01/08/15 multivitamin with folic acid 400 mcg tablet (Thera) 1 tab PO DAILY 01/08/15 calcium carbonate 600 mg-vitamin D3 12.5 mcg (500 unit) capsule (Calcium 600 with Vitamin D3) 1 cap PO DAILY 05/12/24 fexofenadine 180 mg tablet (Winter Allergy) 180 mg PO DAILY 05/12/24 levofloxacin 750 mg tablet 750 mg PO DAILY 7 days #7 tabs 05/22/24 ondansetron 4 mg disintegrating tablet 4 mg PO Q8H PRN nausea and vomiting #10 tabs 05/22/24 oxycodone 5 mg tablet 5 mg PO Q6H PRN pain 5 days #10 tabs 05/22/24
[2024-05-22 12:25] VITALS: BP 148/78; PULSE 78; RESP 16; TEMP 36.6; O2SAT 96
--- NOTE | 2024-05-25 12:44 | CASEMGMT ---
AASEL ANDERSEN DC TC: TC to pt, received a message that pt has a vm box that has not been set up yet. Unable to leave a message.
== END 2024-05-22 13:53 | disposition home or self-care (01) | DRG 329 ==
LOC: ED 15:36 → MS3 16:32
PROVIDERS: Physician Assistant; Surgery; Admitting Provider Surgery; Emergency Provider Emergency Medicine; PCP Internal Medicine; Visit Provider Surgery
PROC: 0DTN0ZZ Resection of Sigmoid Colon, Open Approach (ICD-10-PCS; CPT 44204; principal; 2024-05-15 15:35)
DX: K57.20 Diverticulitis of large intestine with perforation and abscess without bleeding (principal); J18.9 Pneumonia, unspecified organism; K56.7 Ileus, unspecified; I10 Essential (primary) hypertension; F17.210 Nicotine dependence, cigarettes, uncomplicated; Z53.31 Laparoscopic surgical procedure converted to open procedure; Z79.899 Other long term (current) drug therapy
CPT/HCPCS: 36415; 71045; 74177; 80048; 80053; 81001; 82962; 83690; 83735; 84100; 85025; 88304; 88307; 94640; 97110; 97162; 97166; 97530; 97535; 97802; 99283; 99284; J7030; J7040; J7050; Q9967; A4216; C1760; J1940; J2405; J3490

== ENCOUNTER → 2024-05-26 | Outpatient (CLI) | payer MEDICARE, SELFPAY ==
[2024-05-26 10:31] LABS: Absolute Lymphocyte Count 1.75 X10^3/uL (0.83-4.51); Absolute Neutrophil Count 9.6 X10^3/uL (2.0-7.7); Basophil# 0.08 X10^3/uL; Basophil% 0.6 % (0-1); Eosinophil# 0.24 X10^3/uL; Eosinophils% 1.9 % (0-5); Hematocrit 33.9 % (37-47); Lymphocyte # 1.75 X10^3/ul (0.83-4.51); Lymphocyte % 13.8 % (19-41); Mean Corp Hgb Conc 32.4 g/dL (32-36); Mean Corpuscular Hgb 31.4 pg (27.0-32.0); Mean Corpuscular Volume 96.9 fL (81-99); Monocyte# 0.88 X10^3/uL; NRBC Flagged by Analyzer 0 % (0-5); Neutrophil # 9.61 X10^3/uL (2.7-7.7); Platelet Count 494 K/mm3 (150-450); RBC Distribution Width CV 13.8 % (11.6-14.6); RBC Distribution Width SD 48.6 fl (35.1-43.9); White Blood Count 12.7 K/mm3 (4.4-11.0)
== END | disposition home or self-care (01) ==
LOC: LAB 10:10
PROVIDERS: PCP Internal Medicine; Visit Provider Surgery
DX: K57.20 Diverticulitis of large intestine with perforation and abscess without bleeding (principal)
CPT/HCPCS: 36415; 85025

== ENCOUNTER 2025-10-19 10:00 | Inpatient (IN) | payer MEDICARE, SELFPAY ==
[2025-10-19] VITALS (8 sets, daily range): BP systolic 119–154; BP diastolic 62–95; PULSE 71–92; RESP 16–31; TEMP 36.4–38.3; O2SAT 94–98; BMI 20.2
--- NOTE | 2025-10-19 10:24 | ED.VIS.GI ---
HPI HPI - GI History of Present Illness Chief Complaint: Nausea/Vomiting Informant: patient Abdominal Pain/Flank Pain Onset: Days (4) Context: Sudden Onset Timing: Continuous Quality: - (Pressure) Location: Diffuse Worsened by: Nothing Relieved by: Nothing Nausea/Vomiting/Emesis GI Symptom: Positive for Nausea and Vomiting Diarrhea/Melena/Hematochezia GI Symptom: Negative for Diarrhea, Melena or Hematochezia Associated Symptoms Associated Symptoms: Negative for Dysuria, Frequency or Hematuria Narrative Narrative: Patient presents with abdominal pain, nausea, and vomiting that has been getting worse over the past 4 days. Patient states it is constant. Patient states it began rather suddenly. Patient denies any fevers or chills. Patient denies any hematemesis or coffee-ground emesis. Patient denies any diarrhea, melena, or hematochezia. Patient states she has been constipated. Patient denies any dysuria, frequency, or hematuria. Patient states she did have a colonoscopy on September 20, 2025. Patient admits to a mild cough. Patient denies any chest pain or shortness of breath. [facility] Medical History Hypertension Home Medications ?Medication ?Instructions ?Recorded ?Last Taken ?Type lisinopril 10 mg tablet 10 mg PO DAILY 01/08/15 05/12/24 History multivitamin with folic acid 400 1 tab PO DAILY 01/08/15 05/11/24 History mcg tablet (Thera) calcium 600 mg (as 1 cap PO DAILY 05/12/24 05/11/24 History carbonate)-vitamin D3 12.5 mcg (500 unit) capsule (Calcium with Vit D3) fexofenadine 180 mg tablet 180 mg PO DAILY 05/12/24 05/11/24 History (Winter Allergy) ondansetron 4 mg disintegrating 4 mg PO Q8H PRN nausea and 05/22/24 Unknown Rx tablet vomiting #10 tabs Allergy/AdvReac Type Severity Reaction Status Date / Time No Known Allergies Allergy Verified 10/19/25 10:02 Surgical History S/P colectomy Hx of tubal ligation Social History Smoking Status: Heavy Smoker (>10/day) EXAM Physical Exam Const Vital Signs: 10/19/25 10:01 Temperature 98.4 F Temperature Source Oral Pulse Rate 92 Respiratory Rate 18 Blood Pressure 119/93 H Blood Pressure Mean 101 Pulse Ox 94 Oxygen Delivery Method Room Air MDM MDM MDM Narrative Medical decision making narrative: Differential diagnose includes bowel obstruction, perforation, electrolyte abnormality, dehydration, viral illness, ileus, urinary tract infection, and pancreatitis. CT scan of the abdomen and pelvis will be obtained to assess for bowel obstruction, perforation, and pancreatitis. CBC will be obtained to assess for leukocytosis and anemia. Comprehensive metabolic profile will be obtained to assess for hepatic function, renal function, and electrolyte abnormality. Lipase will be obtained to assess for pancreatitis. Urinalysis will be obtained to assess for urinary tract infection and hematuria. Lab Data Attestation: I reviewed the patient's lab results. Lab results narrative: CBC was reviewed. There is a mild leukocytosis of 19.2. Urinalysis was reviewed. Leukocyte esterase was 25. Urine ketones was 50. Treatment and Re-Evaluation :: Patient was given IV fluids, morphine, and Zofran. Discharge Plan Triage Chief Complaint: Nausea/Vomiting ED Provider: Roni Elias Dx/Rx/DC Orders Prescriptions: No Action lisinopril 10 MG tablet 10 mg PO DAILY multivitamin with folic acid [Thera] 1 TABLET tablet 1 tab PO DAILY fexofenadine [Winter Allergy] 180 mg tablet 180 mg PO DAILY calcium carbonate-vitamin D3 [Calcium 600 with Vitamin D3] 600 mg-12.5 mcg (500 unit) capsule 1 cap PO DAILY Patient Comments: pt takes a vitamin d with calcium but unsure of strength ondansetron 4 mg tablet,disintegrating 4 mg PO Q8H PRN (Reason: nausea and vomiting) Qty: 10 0RF Primary Care Provider: Ashley Richardson Referrals: Ashley Richardson MD [Primary Care Provider, Internal Medicine] Print Language: [place]
[2025-10-19 10:44] LABS: Hematocrit 45.0 % (37-47); Hemoglobin 15.4 g/dL (12.0-15.0); Immature Granulocytes Count 0.130 X10^3/uL (0.0-0.0); Mean Corp Hgb Conc 34.2 g/dL (32-36); Mean Corpuscular Volume 93.6 fL (81-99); Mean Platelet Vol. 10.6 fl (6.2-12.0); NRBC Flagged by Analyzer 0 % (0-5); Platelet Count 316 K/mm3 (150-450); RBC Distribution Width CV 12.5 % (11.6-14.6); RBC Distribution Width SD 43.2 fl (35.1-43.9); Red Blood Count 4.81 M/mm3 (4.2-5.4); White Blood Count 19.2 K/mm3 (4.4-11.0)
[2025-10-19 10:58] LABS: Mucous, Urine 0 SEEN /hpf (<or=2+); Red Blood Cells-Urine 0 SEEN /hpf (0-5); Squamous Epithelial Cells - UA 0 SEEN /hpf (5-10)
[2025-10-19 11:00] LABS: Color, Urine Yellow (Yellow); Glucose, Dipstick Normal (Normal); Ketone-Dipstick 50 mg/dl (Negative); Leukocyte Esterase-Dipstick 25 /ul (Negative); Nitrite-Dipstick Negative (Negative); Occult Blood-Urine 10 /ul (Negative); Protein-Dipstick 100 mg/dl (Negative); Specific Gravity, Urine 1.030 (1.002-1.030); Urine Bilirubin Dipstick 1 mg/dL (Negative)
--- NOTE | 2025-10-19 11:00 | CT_ITS ---
PROCEDURE: ABDOMEN/PELVIS W IV CONT ONLY 10/19/2025 REASON FOR EXAM: ABDOMINAL PAIN TECHNIQUE: Procedure Code: [id number] Modality: CT Procedure: ABDOMEN/PELVIS W IV CONT ONLY CT abdomen and pelvis was performed with IV contrast. Multiplanar reformats were generated. CONTRAST: Isovue-300 VOLUME: 95 mL One or more dose reduction techniques were used (e.g., Automated exposure control, adjustment of the mA and/or kV according to patient size, use of iterative reconstruction technique. RADIATION DOSE SUMMARY: CTDlvol: 13.30+ 8.91 mGy DLP: 409.32 mGycm COMPARISON: 05/21/2024 FINDINGS: Exam slightly limited by a relative lack of intraperitoneal and retroperitoneal fat with resultant crowding, in particular limiting evaluation of the bowel and retroperitoneal structures. Lung bases: Coronary atherosclerosis and/or stents.. Liver: Focal hypodensity along the anterior liver similar to 05/12/2024 favorable for focal steatosis.. Punctate hypodensity along the gallbladder fossa too small to characterize also unchanged. Spleen: Unremarkable. Gallbladder/biliary: Unremarkable. Pancreas: 5 mm hypodensity in the pancreatic head. No suspicious ductal dilatation.. Adrenals: Unremarkable. Kidneys: Bilateral cysts and subcentimeter evidence in the LEFT too small to characterize, presumed cyst.. Difficult to trace portions of the ureters. No hydronephrosis or definite ureteral calculus. Bowel: Distended stomach. Distended small bowel to 4.2 cm traceable to a focal transition point in the central abdomen (series 2, image 42). Distal to this transition point, there is a segment of additional more distal dilated small bowel with both proximal and distal transition points in the same region, involved bowel loops in this region dilated to 4.3 cm. More distal small bowel loops are decompressed and difficult to trace. Partial colectomy with low rectal anastomosis. Slightly distorted appearance of the sigmoid/descending and transverse colon in the region of the above transition points, without dilatation or convincing inflammation. No definite pneumatosis. Appendix not identified. Lymph nodes: Grossly unremarkable. Vasculature: Severe atherosclerosis. Multifocal stenosis likely but not well delineated due to non angiographic technique.. No definite portal venous gas. Peritoneum: Unremarkable. Bladder: Underdistended and suboptimally evaluated, grossly unremarkable. Reproductive Organs: Grossly unremarkable but poorly delineated. Body Wall: Operative changes.. Bones: Degenerative findings. Suspect demineralization. Lumbar levoscoliosis. Possible early avascular necrosis in the bilateral femoral heads without subchondral collapse.. CT/Abdomen/Pelvis W IV Cont ONLY IMPRESSION: 1. Findings suggest both coexisting closed loop and upstream simple mechanical small obstructions as described. Note that a closed loop component increases the risk of bowel ischemia, however there is no definite imaging evidence of to suggest this at present. Correlate with serum lactate and recommend prompt surgical consultati on. 2. 5 mm hypodensity in the pancreatic head incompletely characterized by CT but potentially reflecting and indolent cystic neoplasm such as IPMN. Recommend outpatient multiphase pancreatic protocol MRI abdomen with and without contrast and with MRCP for more definitive characterization and to establish an MR baseline for future follow-up. No suspicious ductal dilatation. 3. Question emphysema. Consider outpatient lung cancer screening as per the be low. 4. Additional description as above. The USPSTF recommends annual screening for lung cancer with low-dose CT chest i n adults aged 50-80 who have a 20 pack-year smoking history and currently smoke OR have quit within the past 15 years. Incidental Finding Alert: As above. Management of this incidental finding varinder carlos follow the [employer] (ACR) Incidental Findings Committee recommendations. Reading Location: [id number]
[2025-10-19] MEDS: 0.9% Normal Saline (1000mL) 1,000 ML 999 ML IV (11:18)
[2025-10-19 12:14] LABS: AST(SGOT) 23 U/L (<=31); Alanine Aminotransfer ALT/SGPT 11 U/L (<=34); Albumin, Serum 4.5 g/dL (3.4-4.8); Alkaline Phosphatase 44 U/L (35-104); Anion Gap 17 (5-15); BUN 49 mg/dL (4-19); BUN/Creat Ratio 33.2 RATIO (10-20); Calcium,Total 9.6 mg/dL (7.6-11.0); Carbon Dioxide 26.2 mmol/L (21.0-32.0); Chloride 91 mmol/L (98-108); Estimated Creatinine Clearance 27.97 ml/min (50-250); Globulin 2.5 g/dL (2.2-4.2); Glucose 113 mg/dL (70-99); Lipase 99 U/L (13-75); Potassium 4.3 mmol/L (3.3-5.1)
[2025-10-19] MEDS: Oxymetazoline 0.05% 1 SPRAY SPRAY.BTL 2 SPRAY NASAL (12:44)
[2025-10-19] MEDS: Lidocaine Jelly 2% 20 ML Syringe (URO-JET) 1 APPLIC TOPICAL (12:45)
--- NOTE | 2025-10-19 13:05 | RAD_ITS ---
EXAM: XR Abdomen, 1 View CLINICAL INDICATION: NG INSERTION TECHNIQUE: Frontal supine view of the abdomen/pelvis. COMPARISON: XR Abdomen dated 05/21/2024 FINDINGS: GASTROINTESTINAL TRACT: Unremarkable. No dilation. BONES/JOINTS: Unremarkable. No acute fracture. TUBES, LINES AND DEVICES: Enteric tube is in the stomach. RAD/Abdomen Single View (Portable) IMPRESSION: Enteric tube is in the stomach. Reading Location: [facility]
--- NOTE | 2025-10-19 13:06 | HP.PCM.SX_ITS ---
HPI - General General Date of Admission: 10/19/25 HPI Narrative EDA ARREOLA, is a 70 F who presents to the ER due to abdominal pain nausea and vomiting accompanied with her daughter. Patient did have colectomy due to diverticulitis with an abscess in May [address] Liao. Patient denies any other abdominal surgeries. Patient states pain and nausea vomiting started on Wednesday. Patient states last bowel movement was prior to that. Patient has CT abdomen pelvis is consistent with small bowel obstruction questional possible closed-loop per report, white blood cell count-19 with a left shift, lactic acid 1.5. NG was placed in the ER had 500 out initially. [facility] Medical History (Updated 10/19/25 @ 15:[address] Lori Nuñez MD) Hypertension Home Medications ?Medication ?Instructions ?Recorded ?Last Taken ?Type lisinopril 10 mg tablet 10 mg PO DAILY BP 01/08/15 1 12/20/24 History multivitamin with folic acid 400 1 tab PO DAILY vitami n 01/08/15 05/11/24 History mcg tablet (Thera) calcium 600 mg (as 1 cap PO DAILY vitamin 05/1205/11/24 History carbonate)-vitamin D3 12.5 mcg (500 unit) capsule (Calcium with Vit D3) Allergy/AdvReac Type Severity Reaction Status Date / Time No Known Allergies Allergy Verified 10/19/25 10:02 Surgical History (Updated 10/19/25 @ 15:[address] Lori Nuñez MD) S/P colectomy Hx of tubal ligation Social History Smoking Status: Heavy Smoker (>10/day) Patient's Goals Of Care . What would you like to achieve or improve as a result of your hospital stay?: r esolution of SBO Vital Signs Vital Signs Vital Signs: 10/19/25 10:01 10/19/25 12:01 10/19/25 12:15 Temperature 98.4 F Temperature Source Oral Pulse Rate 92 76 71 Respiratory Rate 18 22 H 25 H Blood Pressure 119/93 H 125/64 H Blood Pressure Mean 101 84 Pulse Ox 94 98 98 Oxygen Delivery Method Room Air Room Air Room Air Weight Weight: 111 lb Body Mass Index (BMI) 20.2 Physical Exam Narrative NG in place draining about 500 cc in canister. Const oriented x3 Resp normal respiratory effort Cardio regular rate GI soft to palpation GI Narrative: Tender left lower abdomen, no peritoneal signs, lower midline incision well- healed Inspection: abdominal distention Results Lab / Micro Data 10/20/25 04:45 10/20/25 04:45 Labs: Laboratory Results - last 24 hr 10/19/25 10:19: WBC 19.2 H, RBC 4.81, Hgb 15.4 H, Hct 45.0, MCV 93.6, MCH 32.0, MCHC 34.2, RDW Std Deviation 43.2, RDW Coeff of Nini 12.5, Plt Count 316, MPV 10.6, Immature Gran % (Auto) 0.700, Neut % (Auto) 87.7 H, Lymph % (Auto) 5.8 L, [place] % (Auto) 5.4, Eos % (Auto) 0.2, Baso % (Auto) 0.2, Absolute Neuts (auto) 16.9 H, Absolute Lymphs (auto) 1.11, Nucleated RBC % 0, Sodium Cancelled, Potassium Cancelled, Chloride Cancelled, Carbon Dioxide Cancelled, Anion Gap Cancelled, BUN Cancelled, Creatinine Cancelled, Estim Creat Clear Calc Cancelled, Est GFR (MDRD) Non-Af Cancelled, BUN/Creatinine Ratio Cancelled, Glucose Cancelled, Calcium Cancelled, Total Bilirubin Cancelled, AST Cancelled, ALT Cancelled, Alkaline Phosphatase Cancelled, Total Protein Cancelled, Albumin Cancelled, Globulin Cancelled, Albumin/Globulin Ratio Cancelled, Lipase Cancelled 10/19/25 11:23: Sodium 134, Potassium 4.3, Chloride 91 L, Carbon Dioxide 26.2, A nion Gap 17 H, BUN 49 H, Creatinine 1.48 H, Estim Creat Clear Calc 27.97 L, Est GFR (MDRD) Non-Af 38 L, BUN/Creatinine Ratio 33.2 H, Glucose 113 H, Calcium 9.6, Total Bilirubin 0.62, AST 23, ALT 11, Alkaline Phosphatase 44, Total Protein 7.0, Albumin 4.5, Globulin 2.5, Albumin/Globulin Ratio 1.8, Lipase 99 H 10/19/25 12:21: Lactic Acid 1.5 10/19/25 : Urine Color Yellow, Urine Clarity Clear, Urine pH 5.0, Ur Specific [place] 1.030, Urine Protein 100 H, Urine Glucose (UA) Normal, Urine Ketones 50 H, Urine Occult Blood 10 H, Urine Nitrite Negative, Urine Bilirubin 1 H, Urine Urobilinogen 1 H, Ur Leukocyte Esterase 25 H, Urine RBC 0 SEEN, Urine WBC 0 SEEN, Ur Squamous Epith Cells 0 SEEN, Urine Bacteria 0 SEEN, Urine Mucus 0 SEEN Imaging Radiology Impression Abdomen/Pelvis CT 10/19/25 11:00 IMPRESSION: 1. Findings suggest both coexisting closed loop and upstream simple mechanical small obstructions as described. Note that a closed loop component increases the risk of bowel ischemia, however there is no definite imaging evidence of to suggest this at present. Correlate with serum lactate and recommend prompt surgical consultation. 2. 5 mm hypodensity in the pancreatic head incompletely characterized by CT but potentially reflecting and indolent cystic neoplasm such as IPMN. Recommend outpatient multiphase pancreatic protocol MRI abdomen with and without contrast and with MRCP for more definitive characterization and to establish an MR baseline for future follow-up. No suspicious ductal dilatation. 3. Question emphysema. Consider outpatient lung cancer screening as per the below. 4. Additional description as above. The USPSTF recommends annual screening for lung cancer with low-dose CT chest in adults aged 50-80 who have a 20 pack-year smoking history and currently smoke OR have quit within the past 15 years. Incidental Finding Alert: As above. Management of this incidental finding should follow the [employer] (ACR) Incidental Findings Committee recommendations. Reading Location: [id number] Assessment & Plan Assessment/Plan (1) Small bowel obstruction: PLAN: Plan Discussed with patient and her daughter we will start with conservative management with NG and likely small bowel follow-through tomorrow. Patient did have white blood count of 19 however lactic acid was normal at 1.5 and hemoglobin was also hemoconcentrated at 15. Will continue to monitor if any increase pain or fever we will plan for more urgent surgery. Discussed that if contrast did not go through would also plan for surgery at that time likely start laparoscopic with possibly open, possible bowel resection. Patient and her daughter were agreeable with plan. Lori Nuñez M.D. Pager: [phone] [facility] [address] [place] [address], [facility], [address] [place], [place] [address] Office: [phone]
[2025-10-19] MEDS: 0.9% Normal Saline (1000mL) 1,000 ML 1000 ML IV (13:52)
[2025-10-19] MEDS: Lactated Ringers 1,000 ML 120 ML IV (15:44)
[2025-10-19] MEDS: Pantoprazole Sodium 40 MG in 0.9% Normal Saline (100mL MB+) 100 ML 300 MG IV (17:11)
[2025-10-20] VITALS (15 sets, daily range): BP systolic 112–155; BP diastolic 54–75; PULSE 64–89; RESP 15–22; TEMP 36.1–37.1; O2SAT 92–100
[2025-10-20] MEDS: Lactated Ringers 1,000 ML 120 ML IV ×3 (01:02→21:07)
--- NOTE | 2025-10-20 05:18 | RAD_ITS ---
PROCEDURE: ABDOMEN SINGLE VIEW (PORTABLE) 10/20/2025 REASON FOR EXAM: SBO TECHNIQUE: Procedure Code: RADABD_P Modality: DX Procedure: ABDOMEN SINGLE VIEW (PORTABLE) COMPARISON: CT abdomen and pelvis 10/19/2025. FINDINGS: Bowel gas: Dilated bowel loops in the midabdomen measure up to 3.3 cm. Calcifications: None. Bones: No acute bony abnormalities. Other: RAD/Abdomen Single View (Portable) IMPRESSION: Dilated bowel loops in the midabdomen measure up to 3.3 cm consistent with smal l-bowel obstruction. Reading Location: [id number]
[2025-10-20 05:24] LABS: Hematocrit 37.0 % (37-47); Hemoglobin 12.9 g/dL (12.0-15.0); Immature Granulocytes Count 0.080 X10^3/uL (0.0-0.0); Mean Corp Hgb Conc 34.9 g/dL (32-36); Mean Corpuscular Volume 94.9 fL (81-99); Mean Platelet Vol. 10.4 fl (6.2-12.0); NRBC Flagged by Analyzer 0 % (0-5); POSITIVE DIFFERENTIAL YES; Platelet Count 237 K/mm3 (150-450); RBC Distribution Width CV 12.8 % (11.6-14.6); RBC Distribution Width SD 44.3 fl (35.1-43.9); Red Blood Count 3.90 M/mm3 (4.2-5.4); White Blood Count 16.7 K/mm3 (4.4-11.0)
[2025-10-20 05:43] LABS: Differential Indicated SCAN CRITERIA MET
[2025-10-20 05:54] LABS: Anion Gap 11 (5-15); BUN 35 mg/dL (4-19); BUN/Creat Ratio 38.3 RATIO (10-20); Calcium,Total 8.5 mg/dL (7.6-11.0); Carbon Dioxide 24.4 mmol/L (21.0-32.0); Chloride 103 mmol/L (98-108); Estimated Creatinine Clearance 45.61 ml/min (50-250); Glucose 85 mg/dL (70-99); Potassium 4.0 mmol/L (3.3-5.1)
[2025-10-20 06:14] LABS: Differential Comment SCANNED
--- NOTE | 2025-10-20 08:00 | RAD_ITS ---
PROCEDURE: SMALL BOWEL SERIES ONLY 10/20/2025 REASON FOR EXAM: SBO TECHNIQUE: SMALL BOWEL SERIES ONLY COMPARISON: CT abdomen pelvis dated 10/19/2025 FINDINGS: Integration Specialist Image: Dilated small bowel loops. Paucity of colonic air. At 3 hour post administration of enteric contrast, there is non-opacification of colon suggestive of small-bowel obstruction. Dilated small bowel loops. RAD/Small Bowel Series Only IMPRESSION: At 3 hour post administration of enteric contrast, there is non-opacification o f colon suggestive of small-bowel obstruction. Reading Location: [facility]
--- NOTE | 2025-10-20 08:23 | PN.SURG_ITS ---
Subjective Subjective no abd pain, patient did have a fever 100.9 overnight currently 98.7, no flatus, no n/v over night, NG outpt 100 over night per nursing Objective Data Objective Data Vital Signs: Vital Signs Temp Pulse Resp BP Pulse Ox O2 Del Method 98.7 F 73 22 H 119/65 97 Room Air 10/20/25 05:32 10/20/25 05:32 10/20/25 05:32 10/20/25 05:32 10/20/25 05:32 10/20/25 05:32 Oxygen Delivery Method Room Air Weight: 109 lb 7.987 oz Body Mass Index (BMI) 20.0 Intake & Output: Intake and Output for Last 24 Hours 10/18/25 10/19/25 10/20/25 23:59 23:59 23:59 Intake Total 2160 / 2160 1090 / 1090 Output Total 300 / 300 100 / 100 Balance 1860 / 1860 990 / 990 Lab / Micro Data 10/20/25 04:45 10/20/25 04:45 Labs: Laboratory Results - last 24 hr 10/19/25 10:19: WBC 19.2 H, RBC 4.81, Hgb 15.4 H, Hct 45.0, MCV 93.6, MCH 32.0, MCHC 34.2, RDW Std Deviation 43.2, RDW Coeff of Nini 12.5, Plt Count 316, MPV 10.6, Immature Gran % (Auto) 0.700, Neut % (Auto) 87.7 H, Lymph % (Auto) 5.8 L, [place] % (Auto) 5.4, Eos % (Auto) 0.2, Baso % (Auto) 0.2, Absolute Neuts (auto) 16.9 H, Absolute Lymphs (auto) 1.11, Nucleated RBC % 0, Sodium Cancelled, Potassium Cancelled, Chloride Cancelled, Carbon Dioxide Cancelled, Anion Gap Cancelled, BUN Cancelled, Creatinine Cancelled, Estim Creat Clear Calc Cancelled, Est GFR (MDRD) Non-Af Cancelled, BUN/Creatinine Ratio Cancelled, Glucose Cancelled, Calcium Cancelled, Total Bilirubin Cancelled, AST Cancelled, ALT Cancelled, Alkaline Phosphatase Cancelled, Total Protein Cancelled, Albumin Cancelled, Globulin Cancelled, Albumin/Globulin Ratio Cancelled, Lipase Cancelled 10/19/25 11:23: Sodium 134, Potassium 4.3, Chloride 91 L, Carbon Dioxide 26.2, A nion Gap 17 H, BUN 49 H, Creatinine 1.48 H, Estim Creat Clear Calc 27.97 L, Est GFR (MDRD) Non-Af 38 L, BUN/Creatinine Ratio 33.2 H, Glucose 113 H, Calcium 9.6, Total Bilirubin 0.62, AST 23, ALT 11, Alkaline Phosphatase 44, Total Protein 7.0, Albumin 4.5, Globulin 2.5, Albumin/Globulin Ratio 1.8, Lipase 99 H 10/19/25 12:21: Lactic Acid 1.5 10/19/25 : Urine Color Yellow, Urine Clarity Clear, Urine pH 5.0, Ur Specific [place] 1.030, Urine Protein 100 H, Urine Glucose (UA) Normal, Urine Ketones 50 H, Urine Occult Blood 10 H, Urine Nitrite Negative, Urine Bilirubin 1 H, Urine Urobilinogen 1 H, Ur Leukocyte Esterase 25 H, Urine RBC 0 SEEN, Urine WBC 0 SEEN, Ur Squamous Epith Cells 0 SEEN, Urine Bacteria 0 SEEN, Urine Mucus 0 SEEN 10/20/25 04:45: WBC 16.7 H, RBC 3.90 L, Hgb 12.9, Hct 37.0, MCV 94.9, MCH 33.1 H , MCHC 34.9, RDW Std Deviation 44.3 H, RDW Coeff of Nini 12.8, Plt Count 237, MPV 10.4, Immature Gran % (Auto) 0.500, Neut % (Auto) 80.2 H, Lymph % (Auto) 9.2 L, [place] % (Auto) 9.2, Eos % (Auto) 0.4, Baso % (Auto) 0.5, Absolute Neuts (auto) 13.4 H, Absolute Lymphs (auto) 1.53, Nucleated RBC % 0, Differential Comment SCANNED, Sodium 138, Potassium 4.0, Chloride 103, Carbon Dioxide 24.4, Anion Gap 11, BUN 35 H, Creatinine 0.90, Estim Creat Clear Calc 45.61 L, Est GFR (MDRD) Non-Af 68, BUN/Creatinine Ratio 38.3 H, Glucose 85, Calcium 8.5 Radiography Diagnostic Testing: Radiology Impression Abdomen/Pelvis CT 10/19/25 11:00 IMPRESSION: 1. Findings suggest both coexisting closed loop and upstream simple mechanical small obstructions as described. Note that a closed loop component increases the risk of bowel ischemia, however there is no definite imaging evidence of to suggest this at present. Correlate with serum lactate and recommend prompt surgical consultation. 2. 5 mm hypodensity in the pancreatic head incompletely characterized by CT but potentially reflecting and indolent cystic neoplasm such as IPMN. Recommend outpatient multiphase pancreatic protocol MRI abdomen with and without contrast and with MRCP for more definitive characterization and to establish an MR baseline for future follow-up. No suspicious ductal dilatation. 3. Question emphysema. Consider outpatient lung cancer screening as per the below. 4. Additional description as above. The USPSTF recommends annual screening for lung cancer with low-dose CT chest in adults aged 50-80 who have a 20 pack-year smoking history and currently smoke OR have quit within the past 15 years. Incidental Finding Alert: As above. Management of this incidental finding should follow the [employer] (ACR) Incidental Findings Committee recommendations. Reading Location: [id number] 10/19/25 13:05 IMPRESSION: Enteric tube is in the stomach. Reading Location: [facility] 10/20/25 05:18 IMPRESSION: Dilated bowel loops in the midabdomen measure up to 3.3 cm consistent with small-bowel obstruction. Reading Location: [id number] Assessment & Plan Assessment/Plan (1) Small bowel obstruction: PLAN: Plan Patient with white blood cell count did come down to 16 from 19. Patient currently denies any abdominal pain but also no flatus. Will plan for a modified small bowel follow-through this morning. Patient is aware that this does not go through we will plan for exploratory laparoscopy, possible open, possible bowel resection. Patient is agreeable to plan. Lori Nuñez M.D. Pager: [phone] [facility] [address] [place] [address], [facility], [address] [place] [address] Office: [phone]
[2025-10-20 09:06] LABS: Potassium 4.0 mmol/L (3.3-5.1)
--- NOTE | 2025-10-20 09:17 | CASEMGMT ---
Dx:SBO LACE:1 6-Clicks:24 Medical record reviewed and patient evaluated for identification of discharge planning needs. Based on this review, at this time criteria are not present to indicate a need for discharge planning. Will remain available to assist with discharge planning needs as identified or requested. No CM c/s, pt with NG tube currently. Plan for small bowel follow through, if no passage, will have OR.
[2025-10-20] MEDS: Pantoprazole Sodium 40 MG in 0.9% Normal Saline (100mL MB+) 100 ML 300 MG IV (09:33)
[2025-10-20] MEDS: 0.9% Saline Lock 10 ML Syringe IV (12:04)
--- NOTE | 2025-10-20 13:34 | PRE.ANES_ITS ---
ASA Classification* ASA Classification ASA Classification: 3 and E Assessment & Plan Anesthesia* Anesthesia Assessment Anesthesia Assessment: Discussed sedation and/or anesthesia options, risks, benefits, and alternatives with patient/parents/legal guardian/POA. Questions invited. The patient/parents/legal guardian/POA seems to understand and agrees to proceed with anesthesia plan. Reviewed the physical assessment, medical history, allergy history and patient home medications list prior to surgery/procedure/anesthetic and documented any changes. Performed airway and anesthesia risk assessments. Anesthesia Type Anesthesia Type: General History Source History Obtained from:: Patient and Chart Anesthesia Focused Assessment* Temperature: 98.8 F Pulse Rate: 68 Blood Pressure: 155/75 Respiratory Rate: 20 Pulse Ox: 92 Oxygen Delivery Method: Room Air Airway Assessment Mouth opens: >3 cm Mallampati Score: IV Teeth Condition: Missing (Patient several missing teeth. Rest are tight.) Neck Range of motion (ROM): Limited ROM (Slight Decrease) Labs Anesthesia Preop lab: CBC WBC, (4.4-11.0) 16.7 K/mm3 H Today, 04:45 RBC, (4.2-5.4) 3.90 M/mm3 L Today, 04:45 Hgb, (12.0-15.0) 12.9 g/dL Today, 04:45 Hct, (37-47) 37.0 % Today, 04:45 Plt Count, (150-450) 237 K/mm3 Today, 04:45 CHEMISTRY Potassium, (3.3-5.1) 4.0 mmol/L Today, 08:44 Sodium, (133-145) 138 mmol/L Today, 04:45 Magnesium, (1.6-2.6) 2.0 mg/dL 05/21/24, 04:43 Phosphorus, (2.5-4.9) 3.2 mg/dL 05/21/24, 04:43 BUN, (4-19) 35 mg/dL H Today, 04:45 Creatinine, (0.70-1.20) 0.90 mg/dL Today, 04:45 Glucose, (70-99) 85 mg/dL Today, 04:45 POC Glucose, (74-106) 90 mg/dL 05/22/24, 06:38 COAG Pre-Assessment Diagnosis/Proposed Procedure Planned Operative Procedure(s): Diagnostic laparoscopy. 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 When Was Last Pacemaker Check QUESTION #4 FULL TEXT: You/Your Family Experience fever (hyperthermia) with Anesthesia Last Oral Intake Last Oral intake: Last Oral Intake NPO since 00:00 10/20/25 12:26 Meds taken in AM with sips of No 10/20/25 12:26 water? 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 Female HX of Motion Sickness HX of N/V After Surgery Non-Smoker Duration of Surgery greater than 60 minutes Number of Risk Factors PONV Score Height & Weight Height & Weight: Anesthesia: Height & Weight Height 5 ft 2 in 10/20/25 12:26 Weight: 49.668 kg 10/20/25 12:26 Body Mass Index (BMI) 20.0 10/20/25 12:26 Respiratory Assessment Respiratory Assessment - 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 Has anyone observed you stop No 10/19/25 15:11 breathing during sleep? STOP Results Positive 10/19/25 15:11 QUESTION #5 FULL TEXT : Do you snore loudly (louder than talking or can be heard through closed doors)? 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 Specify any problems Hx of Preganancy in last 3 No 10/19/25 15:11 Months Nurse Filling Out Transfusion JROTH 10/19/25 15:11 & Questions: Date: 10/19/25 10/19/25 15:11 Time: 15:23 10/19/25 15:11 Patient unable to answer at this time (ie. 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 Hx Now No 10/20/25 11:57 Gestational Age (in weeks): EDC: Hx Hx Para Hx Section SAB No 10/20/25 11:57 Does the father of the baby or his family experience fever w Father of the baby Malignant Hypertension history comment Active Medications Active Medications: Current Medications Generic Name Dose Route Start Last Admin Trade Name Freq PRN Reason Stop Dose Admin Acetaminophen 650 mg 10/19/25 15:12 10/20/25 05:06 Acetaminophen 325 Mg Tablet PO 650 mg Q6H PRN PRN Administration Pain Score 1-10 Lactated Ringer's 1,000 mls @ 120 mls/hr 10/19/25 15:12 10/20/25 09:33 IV 120 mls/hr .[id number] ANDREW Administration Sodium Chloride 250 mls @ 15 mls/hr 10/19/25 15:21 IV .[id number] PRN Saline Flush Sodium Chloride 250 mls @ 15 mls/hr 10/19/25 15:21 IV .[id number] PRN Additional IVPB Infusion Pantoprazole Sodium 40 mg/ 100 mls @ 300 mls/hr 10/19/25 16:00 10/20/25 09:59 Sodium Chloride IV Infused Q24 ANDREW Infusion Lisinopril 10 mg 10/20/25 10:00 10/20/25 10:56 Lisinopril 10 Mg Tablet PO Not Given DAILY [facility] Protocol Morphine Sulfate 2 - 4 mg 10/19/25 15:12 10/20/25 12:03 Morphine 2 Mg/Ml Syringe IV 2 mg Q2H PRN PRN Administration Pain Score 4-10 Ondansetron HCl 4 mg 10/19/25 15:12 10/20/25 11:44 Ondansetron 4 Mg/2 Ml Vial IV 4 mg Q8H PRN PRN Administration NAUSEA/VOMITING Sodium Chloride 10 - 40 ml 10/19/25 15:21 10/20/25 12:04 0.9% Saline Lock 10 Ml Syringe IV 20 ml UD PRN Administration SALINE FLUSH Throat Lozenges 1 - 2 lozenge 10/19/25 15:59 Benzocaine/Menthol 1 Lozenge MUCOUS MEM Q2H PRN PRN SORE THROAT PFS Medical History (Updated 10/19/25 @ 15:[address] Lori Nuñez MD) Hypertension Home Medications ?Medication ?Instructions ?Recorded ?Last Taken ?Type lisinopril 10 mg tablet 10 mg PO DAILY BP 01/08/15 1 12/20/24 History multivitamin with folic acid 400 1 tab PO DAILY vitami n 01/08/15 05/11/24 History mcg tablet (Thera) calcium 600 mg (as 1 cap PO DAILY vitamin 05/1205/11/24 History carbonate)-vitamin D3 12.5 mcg (500 unit) capsule (Calcium with Vit D3) Allergy/AdvReac Type Severity Reaction Status Date / Time No Known Allergies Allergy Verified 10/19/25 10:02 Surgical History (Updated 10/19/25 @ 15:[address] Lori Nuñez MD) S/P colectomy Hx of tubal ligation Social History Smoking Status: Heavy Smoker (>10/day) Review of Systems (Anesthesia) ROS Narrative System reviewed and no additional complaints, except as documented.
[2025-10-20] MEDS: Lidocaine 1% (5 ml sdv) 5 ML Vial 3 ML IV (13:54)
--- NOTE | 2025-10-20 17:15 | OP.PCM_ITS ---
Operative Report (Standard) Operative Information Date of Procedure: 10/20/25 Pre-Operative Diagnosis: Small bowel obstruction Post-Operative Diagnosis: Small bowel obstruction due to adhesions Surgery/Procedure Performed: Laparoscopy converted to laparotomy extensive lysis of adhesions animal health technician: Yes Business Unit Manager: Cl Lopez Tasks completed by licensed nursing assistant: Opening & closing and Retracting Type of Anesthesia: Local RN Documented Start/Stop Times: Operation Date: 10/20/25 13:15 Case Time Anesthesia Start 10/20/25 13:41 Into Room 10/20/25 13:41 Procedure Start 10/20/25 14:08 Procedure End 10/20/25 17:26 Anesthesia End 10/20/25 17:38 Out of Room 10/20/25 17:38 Into Recovery 10/20/25 17:40 Out of Recovery 10/20/25 18:36 Procedure Start Time: 14:08 Procedure Stop Time: 17:26 Select all DRAINS/GRAFTS/IMPLANTS that apply: None Special Medications: Cefotan 2 g IV x 1 Estimated Blood Loss: 20 cc Specimen collected: No Description of surgery: Indications: this is a 70-year-old female had a small bowel obstruction which did not resolve conservatively. Diagnostic laparoscopy, possible laparotomy, small bowel resection are elected. Description procedure: The patient was placed on operating table in supine position. A timeout was completed verifying correct patient, procedure, site, position and special equipment prior to beginning procedure. General Anesthesia was induced. Salomon catheter was placed. The abdomen was prepped and draped in usual sterile fashion. An incision was made in the natural skin line above the umbilicus. The fascia was elevated and incised. The peritoneum was elevated and incised. Entry into the peritoneum was confirmed visually and no b owel was noted in the vicinity of the incision. Juarez trocar was placed. The abdomen was insufflated with carbon dioxide to a pressure of 12-15 mmHg. Patient tolerated insufflation well. The laparoscope was then inserted and abdomen inspected. No injuries from initial trocar placement were noted. Additional trochars were then inserted in the following locations 5 mm trocar in the left upper and lower quadrant and suprapubic. Patient was noted to have dilated small bowel and numerous adhesions. Careful lysis adhesions were done laparoscopically and the small bowel was tightly adherent to the anterior abdominal wall as well as the gallbladder and interloop. Due to the tight adhesions did convert to a laparotomy Incision was made with 10 blade scalpel and deepened with electrocautery, large wound protector was placed. Again additional lysis of adhesion was done for over 2 hours total. Dilated small bowel was able to be ran to the distal ileum with resolution of adhesion causing bowel obstruction and small bowel contents were able to be milked along the way. Wound protector was removed. Fascia was closed with 1 PDS running suture. Skin was closed with skin jorge. 5 mm trocar site skin incisions were closed with 4-0 Monocryl interrupted sutures. 4 x 4 gauze and tape were placed over incision. The patient was extubated. The patient tolerated procedure well and was taken to the postanesthesia care unit in stable condition. Surgical Findings: See operative report Complications Complications: No
[2025-10-20] MEDS: fentaNYL 100 MCG/2 ML Ampul IV (17:37)
--- NOTE | 2025-10-20 17:43 | PCM.POST.ANE ---
Anesthesia: Postop Eval I Current Vital Signs Temperature: 97 F Pulse Rate: 87 Blood Pressure: 135/63 Respiratory Rate: 16 Pulse Ox: 100 Oxygen Delivery Method: Room Air Assessment Airway patent: Yes Spontaneous unlabored respirations: Yes Mental status: Awake and Calm nausea: No Vomiting: No Anesthesia Complication: No Fluid Hydration Crystalloid volume administer (ml): 1,100 Total IV fluid infused: 1,100 Progress Note Anesthesia document: Postop Eval 1 completed: Yes
--- NOTE | 2025-10-20 18:02 | PCM.POSTANE2 ---
Anesthesia Postop Eval I Sum Postop Eval Completion status Anesthesia document: Postop Eval 1 completed: Yes Anesthesia Postop Eval I Summary Anesthesia Postop Eval I Summary: Anesthesia Postop Eval I: Assessment Summary Airway patent Yes 10/20/25 17:45 Spontaneous unlabored Yes 10/20/25 17:45 respirations Mental status Awake,Calm 10/20/25 17:45 nausea No 10/20/25 17:45 Vomiting No 10/20/25 17:45 Anesthesia Postop Eval I: Fluid Summary Crystalloid volume administer 1,100 10/20/25 17:45 (ml) Colloids volume administered ( ml) Blood Product volume administered (ml) Total IV fluid infused 1,100 10/20/25 17:45 Anesthesia Postop Eval I: Summary Notes Anesthesia Complication No 10/20/25 17:45 Anesthesia Complication Comment: Post-operative progress note Anesthesia: Postop Eval II Evaluation Mental status: Awake and Calm Pain Level: 5 nausea: No Vomiting: No Complications Anesthesia Complication: No
[2025-10-21] VITALS (8 sets, daily range): BP systolic 118–126; BP diastolic 55–65; PULSE 73–88; RESP 15–18; TEMP 36.6–37; O2SAT 95–98
[2025-10-21 05:28] LABS: Hematocrit 38.6 % (37-47); Hemoglobin 12.7 g/dL (12.0-15.0); Immature Granulocytes Count 0.140 X10^3/uL (0.0-0.0); Mean Corp Hgb Conc 32.9 g/dL (32-36); Mean Corpuscular Volume 98.7 fL (81-99); Mean Platelet Vol. 10.7 fl (6.2-12.0); NRBC Flagged by Analyzer 0 % (0-5); POSITIVE DIFFERENTIAL YES; Platelet Count 236 K/mm3 (150-450); RBC Distribution Width CV 12.7 % (11.6-14.6); RBC Distribution Width SD 46.0 fl (35.1-43.9); Red Blood Count 3.91 M/mm3 (4.2-5.4); White Blood Count 22.1 K/mm3 (4.4-11.0)
[2025-10-21 05:35] LABS: Differential Indicated SCAN CRITERIA MET
[2025-10-21 05:46] LABS: Anion Gap 14 (5-15); BUN 26 mg/dL (4-19); BUN/Creat Ratio 27.9 RATIO (10-20); Calcium,Total 8.3 mg/dL (7.6-11.0); Carbon Dioxide 24.4 mmol/L (21.0-32.0); Chloride 105 mmol/L (98-108); Estimated Creatinine Clearance 44.13 ml/min (50-250); Glucose 86 mg/dL (70-99); Magnesium 2.2 mg/dL (1.5-2.2); Potassium 3.9 mmol/L (3.3-5.1)
[2025-10-21 06:07] LABS: Differential Comment SCANNED
--- NOTE | 2025-10-21 08:31 | PCM.PN.SRG ---
Subjective Subjective Patient's white blood count up to 22; patient does state her pain is more incisional. Patient denies any nausea still having output out of her NG denies any flatus. Objective Data Objective Data Vital Signs: Vital Signs Temp Pulse Resp BP Pulse Ox O2 Del Method O2 Flow Rate 97.9 F 78 15 126/64 H 95 Nasal Cannula 3 10/21/25 04:25 10/21/25 07:03 10/21/25 07:03 10/21/25 04:25 10/21/25 07:03 10/21/25 07:37 10/21/25 07:37 Oxygen Flow Rate (L/min) 3 Oxygen Delivery Method Nasal Cannula Weight: 109 lb 7.987 oz Body Mass Index (BMI) 20.0 Intake & Output: Intake and Output for Last 24 Hours 10/19/25 10/20/25 10/21/25 23:59 23:59 23:59 Intake Total 2160 / 2160 4020 / 4050 90 / 90 Output Total 300 / 300 1819 / 2019 700 / 700 Balance 1860 / 1860 2199 / 2029 -610 / -610 Lab / Micro Data 10/21/25 04:23 10/21/25 04:23 Labs: Laboratory Results - last 24 hr 10/20/25 08:44: Potassium 4.0 10/21/25 04:23: WBC 22.1 H, RBC 3.91 L, Hgb 12.7, Hct 38.6, MCV 98.7, MCH 32.5 H, MCHC 32.9 D, RDW Std Deviation 46.0 H, RDW Coeff of Nini 12.7, Plt Count 236, MPV 10.7, Immature Gran % (Auto) 0.600, Neut % (Auto) 85.0 H, Lymph % (Auto) 3.3 L, [place] % (Auto) 10.8 H, Eos % (Auto) 0.0, Baso % (Auto) 0.3, Absolute Neuts (auto) 18.8 H, Absolute Lymphs (auto) 0.74 L, Nucleated RBC % 0, Differential Comment SCANNED, Sodium 144, Potassium 3.9, Chloride 105, Carbon Dioxide 24.4, Anion Gap 14, BUN 26 H, Creatinine 0.93, Estim Creat Clear Calc 44.13 L, Est GFR (MDRD) Non-Af 66, BUN/Creatinine Ratio 27.9 H, Glucose 86, Calcium 8.3, Magnesium 2.2 Radiography Diagnostic Testing: Radiology Impression Small Bowel X-Ray 10/20/25 08:00 IMPRESSION: At 3 hour post administration of enteric contrast, there is non-opacification of colon suggestive of small-bowel obstruction. Reading Location: [facility] Physical Exam Narrative NG in place Const oriented x3 and no apparent distress Cardio regular rate GI soft to palpation GI Narrative: Incision dressed clean dry and intact, tender near incision appropriate, no peritoneal signs Assessment & Plan Assessment/Plan (1) S/P laparotomy with lysis of adhesions: PLAN: Plan Postop day 1 Continue NG to low intermittent suction okay for ice chips sparingly. Await bowel function Encourage ambulation White blood cell count 22 continue to monitor Will start Lovenox Lori Nuñez M.D. Pager: [phone] [facility] [address] [place] [address], [facility], [address] [place] [address] Office: [phone]
[2025-10-21] MEDS: Pantoprazole Sodium 40 MG in 0.9% Normal Saline (100mL MB+) 100 ML 300 MG IV (08:49)
[2025-10-21] MEDS: 0.9% Saline Lock 10 ML Syringe IV ×2 (08:49→11:03)
[2025-10-21] MEDS: Lactated Ringers 1,000 ML 120 ML IV ×2 (09:02→17:09)
[2025-10-21] MEDS: BENZOCAINE/MENTHOL 1 LOZENGE MUCOUS MEM (10:20)
[2025-10-22] VITALS (9 sets, daily range): BP systolic 152–157; BP diastolic 64–79; PULSE 64–81; RESP 15–16; TEMP 36.9–37.1; O2SAT 92–99
[2025-10-22] MEDS: Lactated Ringers 1,000 ML 120 ML IV ×2 (01:30→12:22)
[2025-10-22 07:39] LABS: Hematocrit 36.5 % (37-47); Hemoglobin 11.9 g/dL (12.0-15.0); Immature Granulocytes Count 0.070 X10^3/uL (0.0-0.0); Mean Corp Hgb Conc 32.6 g/dL (32-36); Mean Corpuscular Volume 99.5 fL (81-99); Mean Platelet Vol. 11.0 fl (6.2-12.0); NRBC Flagged by Analyzer 0 % (0-5); Platelet Count 208 K/mm3 (150-450); RBC Distribution Width CV 12.7 % (11.6-14.6); RBC Distribution Width SD 46.5 fl (35.1-43.9); Red Blood Count 3.67 M/mm3 (4.2-5.4); White Blood Count 12.7 K/mm3 (4.4-11.0)
--- NOTE | 2025-10-22 07:54 | PCM.PN.SRG ---
Subjective Subjective Patient evaluated resting comfortably in bed. She is hoping to get the NG tube out soon. She notes some abdominal tenderness. She denies nausea, flatus or bowel movement. 500 cc output from NG tube overnight. Objective Data Objective Data Vital Signs: Vital Signs Temp Pulse Resp BP Pulse Ox O2 Del Method O2 Flow Rate 98.6 F 71 15 152/74 H 92 Nasal Cannula 1 10/22/25 02:50 10/22/25 05:55 10/22/25 04:00 10/22/25 02:50 10/22/25 05:55 10/22/25 05:55 10/22/25 05:55 Oxygen Flow Rate (L/min) 1 Oxygen Delivery Method Nasal Cannula Weight: 109 lb 7.987 oz Body Mass Index (BMI) 20.0 Intake & Output: Intake and Output for Last 24 Hours 10/20/25 10/21/25 10/22/25 23:59 23:59 23:59 Intake Total 4020 / 4050 2224 / 2254 1060 / 1060 Output Total 1819 / 2019 1050 / 1350 500 / 500 Balance 2199 / 2029 1174 / 904 560 / 560 Lab / Micro Data 10/22/25 07:00 10/22/25 07:00 Labs: Laboratory Results - last 24 hr 10/22/25 07:00: WBC 12.7 H, RBC 3.67 L, Hgb 11.9 L, Hct 36.5 L, MCV 99.5 H, MCH 32.4 H, MCHC 32.6, RDW Std Deviation 46.5 H, RDW Coeff of Nini 12.7, Plt Count 208, MPV 11.0, Immature Gran % (Auto) 0.600, Neut % (Auto) 79.1 H, Lymph % (Auto) 9.4 L, [place] % (Auto) 9.8, Eos % (Auto) 0.8, Baso % (Auto) 0.3, Absolute Neuts (auto) 10.0 H, Absolute Lymphs (auto) 1.19, Nucleated RBC % 0 Physical Exam HEENT HEENT Narrative: NG tube intact with brown fluid noted within the canister GI GI Narrative: Abdomen- incisions c/d/i. No erythema or infection noted. Abdomen soft, nontender. Assessment & Plan Assessment/Plan (1) Small bowel obstruction: (2) S/P laparotomy with lysis of adhesions: PLAN: Plan I am following this patient in conjunction with Dr. Nuñez. She will independently evaluate this patient. Labs reviewed. WBC decreasing. Continue with ambulation and sitting in the chair Encourage gum chewing and hard candy Await bowel function prior to removing the NG tube. We will continue to monitor this patient Charges/Coding Visit Charges Inpatient E&M: 19015 Subs Hosp L1 (post-op; no charge)
[2025-10-22 08:09] LABS: Anion Gap 15 (5-15); BUN 27 mg/dL (4-19); BUN/Creat Ratio 30.6 RATIO (10-20); Calcium,Total 8.6 mg/dL (7.6-11.0); Carbon Dioxide 26.0 mmol/L (21.0-32.0); Chloride 106 mmol/L (98-108); Estimated Creatinine Clearance 47.18 ml/min (50-250); Glucose 79 mg/dL (70-99); Potassium 3.9 mmol/L (3.3-5.1)
[2025-10-22] MEDS: BENZOCAINE/MENTHOL 1 LOZENGE MUCOUS MEM ×2 (09:09→17:45)
[2025-10-22] MEDS: Pantoprazole Sodium 40 MG in 0.9% Normal Saline (100mL MB+) 100 ML 300 MG IV (09:09)
[2025-10-22] MEDS: 0.9% Saline Lock 10 ML Syringe IV ×2 (09:10→13:15)
[2025-10-22] MEDS: Lactated Ringers 1,000 ML 100 ML IV (21:26)
[2025-10-23] VITALS (7 sets, daily range): BP systolic 152–173; BP diastolic 66–70; PULSE 61–77; RESP 15–18; TEMP 36.6–37.2; O2SAT 93–98
[2025-10-23 05:23] LABS: Hematocrit 35.6 % (37-47); Hemoglobin 11.3 g/dL (12.0-15.0); Immature Granulocytes Count 0.090 X10^3/uL (0.0-0.0); Mean Corp Hgb Conc 31.7 g/dL (32-36); Mean Corpuscular Volume 99.7 fL (81-99); Mean Platelet Vol. 11.0 fl (6.2-12.0); NRBC Flagged by Analyzer 0 % (0-5); Platelet Count 214 K/mm3 (150-450); RBC Distribution Width CV 12.4 % (11.6-14.6); RBC Distribution Width SD 45.4 fl (35.1-43.9); Red Blood Count 3.57 M/mm3 (4.2-5.4); White Blood Count 14.1 K/mm3 (4.4-11.0)
[2025-10-23 06:24] LABS: Anion Gap 15 (7-18); BUN 23 mg/dL (4-19); BUN/Creat Ratio 34.5 RATIO (10-20); Calcium,Total 8.5 mg/dL (7.6-11.0); Carbon Dioxide 23.4 mmol/L (20.0-29.0); Chloride 106 mmol/L (96-106); Estimated Creatinine Clearance 51.31 ml/min (50-250); Glucose 73 mg/dL (70-99); Potassium 3.8 mmol/L (3.5-5.1)
[2025-10-23] MEDS: Lactated Ringers 1,000 ML 100 ML IV ×2 (07:57→17:04)
--- NOTE | 2025-10-23 08:53 | PN.SURG_ITS ---
Subjective Subjective Patient evaluated resting comfortably in bed. She denies any bowel activity. No flatus or BM. She notes some hiccuping. She denies any nausea. She notes minimal abdominal tenderness. She has been up ambulating. Objective Data Objective Data Vital Signs: Vital Signs Temp Pulse Resp BP Pulse Ox O2 Del Method O2 Flow Rate 98 F 76 17 173/70 H 94 Nasal Cannula 1 10/23/25 08:00 10/23/25 08:00 10/23/25 08:00 10/23/25 08:00 10/23/25 08:00 10/23/25 08:00 10/23/25 08:00 Oxygen Flow Rate (L/min) 1 Oxygen Delivery Method Nasal Cannula Weight: 109 lb 7.987 oz Body Mass Index (BMI) 20.0 Intake & Output: Intake and Output for Last 24 Hours 10/21/25 10/22/25 10/23/25 23:59 23:59 23:59 Intake Total 2224 / 2254 3280 / 3310 1060 / 1060 Output Total 1050 / 1350 1550 / 1750 400 / 400 Balance 1174 / 904 1730 / 1560 660 / 660 Lab / Micro Data 10/23/25 04:38 10/23/25 04:38 Labs: Laboratory Results - last 24 hr 10/23/25 04:38: WBC 14.1 H, RBC 3.57 L, Hgb 11.3 L, Hct 35.6 L, MCV 99.7 H, MCH 31.7, MCHC 31.7 L, RDW Std Deviation 45.4 H, RDW Coeff of Nini 12.4, Plt Count 214, MPV 11.0, Immature Gran % (Auto) 0.600, Neut % (Auto) 79.9 H, Lymph % (Auto) 10.0 L, [place] % (Auto) 8.1, Eos % (Auto) 1.0, Baso % (Auto) 0.4, Absolute Neuts (auto) 11.3 H, Absolute Lymphs (auto) 1.42, Nucleated RBC % 0, Sodium 144, Potassium 3.8, Chloride 106, Carbon Dioxide 23.4, Anion Gap 15, BUN 23 H, C reatinine 0.68 L, Estim Creat Clear Calc 51.31, Est GFR (MDRD) Non-Af 94, B UN/Creatinine Ratio 34.5 H, Glucose 73, Calcium 8.5 Physical Exam GI GI Narrative: Abdomen- soft, nontender. Incisions c/d/i. [place] intact. Silver dressing reapplied. Hypoactive. Assessment & Plan Assessment/Plan (1) S/P laparotomy with lysis of adhesions: (2) Postoperative ileus: PLAN: Plan I am following this patient in conjunction with Dr. Shaw in Dr. Nuñez's absence. He has independently evaluated this patient. Labs reviewed. WBC 14.1, slight increase today Continue to ambulate and encourage I.S. NG tube output was 400 overnight. Leave NG in place until bowel function occurs. Abdominal exam is much softer than yesterday Monitor ice chip intake Continue PPI Dr. Nuñez will return tomorrow We will continue to monitor this patient Charges/Coding Visit Charges Inpatient E&M: 15655 Subs Hosp L1 (post-op; no charge)
[2025-10-23] MEDS: Pantoprazole Sodium 40 MG in 0.9% Normal Saline (100mL MB+) 100 ML 300 MG IV (09:39)
[2025-10-23] MEDS: 0.9% Saline Lock 10 ML Syringe IV ×2 (09:40→12:25)
--- NOTE | 2025-10-23 11:16 | CASEMGMT ---
Pt remains with NG. Pt 6cl=24. No RN CM intervention at this time, RN CM to follow.
[2025-10-24 03:22] VITALS: BP 155/69; PULSE 71; RESP 18; TEMP 37.2; O2SAT 96
[2025-10-24] MEDS: Lactated Ringers 1,000 ML 100 ML IV ×2 (03:25→14:41)
[2025-10-24] MEDS: 0.9% Saline Lock 10 ML Syringe IV ×2 (03:26→14:43)
[2025-10-24 06:09] LABS: Hematocrit 33.7 % (37-47); Hemoglobin 11.3 g/dL (12.0-15.0); Immature Granulocytes Count 0.090 X10^3/uL (0.0-0.0); Mean Corp Hgb Conc 33.5 g/dL (32-36); Mean Corpuscular Volume 96.6 fL (81-99); Mean Platelet Vol. 10.8 fl (6.2-12.0); NRBC Flagged by Analyzer 0 % (0-5); Platelet Count 247 K/mm3 (150-450); RBC Distribution Width CV 12.2 % (11.6-14.6); RBC Distribution Width SD 43.6 fl (35.1-43.9); Red Blood Count 3.49 M/mm3 (4.2-5.4); White Blood Count 13.4 K/mm3 (4.4-11.0)
[2025-10-24 06:39] LABS: Anion Gap 13 (7-18); BUN 15 mg/dL (4-19); BUN/Creat Ratio 27.5 RATIO (10-20); Calcium,Total 8.3 mg/dL (7.6-11.0); Carbon Dioxide 26.5 mmol/L (20.0-29.0); Chloride 103 mmol/L (96-106); Estimated Creatinine Clearance 51.31 ml/min (50-250); Glucose 80 mg/dL (70-99); Magnesium 2.0 mg/dL (1.5-2.2); Potassium 3.3 mmol/L (3.5-5.1)
[2025-10-24 07:25] VITALS: O2SAT 97
[2025-10-24 08:00] VITALS: BP 154/69; PULSE 84; RESP 18; TEMP 36.8; O2SAT 96
--- NOTE | 2025-10-24 08:54 | PCM.PN.SRG ---
Subjective Subjective Has small amount of flatus, NG 950 out yesterday. Objective Data Objective Data Vital Signs: Vital Signs Temp Pulse Resp BP Pulse Ox O2 Del Method O2 Flow Rate 98.9 F 71 18 155/69 H 97 Nasal Cannula 1 10/24/25 03:22 10/24/25 03:22 10/24/25 03:22 10/24/25 03:22 10/24/25 07:25 10/24/25 07:25 10/24/25 07:25 Oxygen Flow Rate (L/min) 1 Oxygen Delivery Method Nasal Cannula Weight: 109 lb 7.987 oz Body Mass Index (BMI) 20.0 Intake & Output: Intake and Output for Last 24 Hours 10/22/25 10/23/25 10/24/25 23:59 23:59 23:59 Intake Total 3280 / 3310 2301.67 / 2301.67 1130 / 1130 Output Total 1550 / 1750 1050 / 1050 150 / 150 Balance 1730 / 1560 1251.67 / 1251.67 980 / 980 Lab / Micro Data 10/24/25 05:16 10/24/25 05:16 Labs: Laboratory Results - last 24 hr 10/24/25 05:16: WBC 13.4 H, RBC 3.49 L, Hgb 11.3 L, Hct 33.7 L, MCV 96.6, MCH 32.4 H, MCHC 33.5 D, RDW Std Deviation 43.6, RDW Coeff of Nini 12.2, Plt Count 247, MPV 10.8, Immature Gran % (Auto) 0.700, Neut % (Auto) 77.2 H, Lymph % (Auto) 11.4 L, [place] % (Auto) 8.2, Eos % (Auto) 2.1, Baso % (Auto) 0.4, Absolute Neuts (auto) 10.3 H, Absolute Lymphs (auto) 1.52, Nucleated RBC % 0, Sodium 143, Potassium 3.3 L, Chloride 103, Carbon Dioxide 26.5, Anion Gap 13, BUN 15, Creatinine 0.56 L, Estim Creat Clear Calc 51.31, Est GFR (MDRD) Non-Af 98, BUN/Creatinine Ratio 27.5 H, Glucose 80, Calcium 8.3, Magnesium 2.0 Physical Exam Narrative NG in place Const oriented x3 and no apparent distress Cardio regular rate GI soft to palpation GI Narrative: Incision clean dry and intact with jorge, ecchymosis near incision, appropriately tender near incision. Nondistended Assessment & Plan Assessment/Plan (1) S/P laparotomy with lysis of adhesions: (2) Postoperative ileus: PLAN: Plan White blood count 13.4 from 14.1 Continue to ambulate and encourage I.S. NG tube output was 950 yesterday continue to monitor if does decrease could possibly do a clamp trial later today. Hypokalemia?replace Lori Nuñez M.D. Pager: [phone] [facility] [address] [place] [address], [facility], [address] [place] [address] Office: [phone]
[2025-10-24] MEDS: Potassium Chloride 10mEq/100mL 10 MEQ/100 ML IV.SOLN. 100 MEQ IV BOLUS ×4 (09:10→13:15)
[2025-10-24] MEDS: Pantoprazole Sodium 40 MG in 0.9% Normal Saline (100mL MB+) 100 ML 300 MG IV (14:40)
[2025-10-24 14:53] VITALS: BP 176/71; PULSE 71
[2025-10-24 17:51] VITALS: BP 160/71; PULSE 87; RESP 18; TEMP 37.1; O2SAT 96
[2025-10-24 20:40] VITALS: BP 159/68; PULSE 77; RESP 18; TEMP 36.9; O2SAT 95
[2025-10-25] MEDS: Lactated Ringers 1,000 ML 100 ML IV (01:02)
[2025-10-25 01:07] VITALS: BP 147/77; PULSE 73; RESP 18; TEMP 37.2; O2SAT 93
[2025-10-25] MEDS: 0.9% Saline Lock 10 ML Syringe IV (01:10)
[2025-10-25 08:00] VITALS: BP 170/78; PULSE 74; RESP 18; TEMP 37.1; O2SAT 94
[2025-10-25 08:02] VITALS: RESP 18
--- NOTE | 2025-10-25 10:08 | PN.SURG_ITS ---
Subjective Subjective Patient passing flatus and had bowel movement. NG was able to be DC'd yesterday and started and tolerated clears. Objective Data Objective Data Vital Signs: Vital Signs Temp Pulse Resp BP Pulse Ox O2 Del Method O2 Flow Rate 98.7 F 74 18 170/78 H 94 Nasal Cannula 1 10/25/25 08:00 10/25/25 08:00 10/25/25 08:02 10/25/25 08:00 10/25/25 08:00 10/25/25 08:09 10/25/25 08:09 Oxygen Flow Rate (L/min) 1 Oxygen Delivery Method Nasal Cannula Weight: 109 lb 7.987 oz Body Mass Index (BMI) 20.0 Intake & Output: Intake and Output for Last 24 Hours 10/23/25 10/24/25 10/25/25 23:59 23:59 23:59 Intake Total 2301.67 / 2301.67 3080 / 3080 1000 / 1000 Output Total 1050 / 1050 750 / 750 Balance 1251.67 / 1251.67 2330 / 2330 1000 / 1000 Lab / Micro Data 10/24/25 05:16 10/24/25 05:16 Physical Exam Const oriented x3 and no apparent distress Resp normal respiratory effort Cardio regular rate GI soft to palpation GI Narrative: Incision healing well with jorge and ecchymosis resolving, no peritoneal signs Assessment & Plan Assessment/Plan (1) S/P laparotomy with lysis of adhesions: (2) Postoperative ileus: PLAN: Plan Patient tolerated clears and fulls and had multiple bowel movements will advance to transitional diet for lunch. Likely DC home tomorrow. Continue ambulation Continue pain control DC Protonix continue Lovenox. Lori Nuñez M.D. Pager: [phone] [facility] [address] [place] [address], [facility], [address] [place] [address] Office: [phone]
[2025-10-25 16:02] VITALS: RESP 18
[2025-10-25 20:15] VITALS: BP 160/78; PULSE 69; RESP 16; TEMP 37.1; O2SAT 94
[2025-10-26 02:20] VITALS: BP 150/88; PULSE 69; RESP 16; TEMP 36.6; O2SAT 96
[2025-10-26] MEDS: 0.9% Saline Lock 10 ML Syringe IV (02:22)
--- NOTE | 2025-10-26 08:40 | PN.SURG_ITS ---
Subjective Subjective The patient tolerated transitional diet, continued bowel function does complain of some discomfort in the left lower quadrant Objective Data Objective Data Vital Signs: Vital Signs Temp Pulse Resp BP Pulse Ox O2 Del Method O2 Flow Rate 97.9 F 69 16 150/88 H 96 Room Air 1 10/26/25 02:20 10/26/25 02:20 10/26/25 02:20 10/26/25 02:20 10/26/25 02:20 10/26/25 02:20 10/25/25 08:09 Oxygen Flow Rate (L/min) 1 Oxygen Delivery Method Room Air Weight: 109 lb 7.987 oz Body Mass Index (BMI) 20.0 Intake & Output: Intake and Output for Last 24 Hours 10/24/25 10/25/25 10/26/25 23:59 23:59 23:59 Intake Total 3080 / 3080 2800 / 2800 Output Total 750 / 750 Balance 2330 / 2330 2800 / 2800 Lab / Micro Data 10/24/25 05:16 10/24/25 05:16 Physical Exam Const oriented x3 and no apparent distress Resp normal respiratory effort Cardio regular rate GI soft to palpation GI Narrative: Incision healing well with jorge and ecchymosis resolving?tender near incision?appropriate, no peritoneal signs Assessment & Plan Assessment/Plan (1) S/P laparotomy with lysis of adhesions: (2) Postoperative ileus: PLAN: Plan Patient tolerating transitional diet and stopping bowel function plan to DC home. Will have patient follow-up early next week for staple removal. Lori Nuñez M.D. Pager: [phone] [facility] [address] [place] [address], [address] [place] [address] Office: [phone]
--- NOTE | 2025-10-26 09:09 | DCINST_ITS ---
Discharge Instructions Diet Discharge Diet: Light diet - advance as tolerated Activity Discharge Activity: May Not Drive (while taking narcotic pain medications.) and May Shower May shower in (days): 1 Lifting Restrictions: no lifting >20 lbs x 2 wks, no strenuous exercise for 4 wks Dressing / Incision Call your doctor if your incision/area has: Continuous Slow Oozing, Sudden I ncreased Bleeding, Increased Pain/ Swelling, Increased Redness, Foul Smelling Discharge and Swelling at the incision site Call your doctor if you observe: Fever of 101 or Higher Remove Dressing in: 2 days Cleanse incision/area with: Soap & Water Additional Dressing/Incision Instructions:: Steri-Strips will fall off in 7 to 10 days, if they do not fall off okay to remove after 10 days. Follow Up Care Please Follow Up With: Lori Nuñez MD When: Call the office for a follow-up appointment early next week with Judi Wild for staple removal; after 5 PM and on the weekends call [phone] with any concerns. Test Results: Test results from this visit will be discussed in further detail at your follow- up appointment, if applicable. Discharge Plan Admission Admit Date/Time: 10/19/25 13:55 Attending Provider: Lori Nuñez Primary Care Provider: Ashley Richardson Discharge Orders/Prescriptions Prescriptions: New tramadol 50 mg tablet 50 mg PO Q6H PRN (Reason: pain) Qty: 7 0RF Continued lisinopril 10 MG tablet 10 mg PO DAILY multivitamin with folic acid [Thera] 1 TABLET tablet 1 tab PO DAILY calcium carbonate-vitamin D3 [Calcium 600 with Vitamin D3] 600 mg-12.5 mcg (500 unit) capsule 1 cap PO DAILY Patient Comments: pt takes a vitamin d with calcium but unsure of strength Referrals / Follow Up: Ashley Richardson MD [Primary Care Provider, Internal Medicine] Disposition Disposition (needs filled in before D/C Order can be placed): Home, Self Care
--- NOTE | 2025-10-26 09:12 | PCM.DC.SUM ---
Providers Date of Admission: 10/19/25 Primary Care Physician: Dr. Ashley Richardson MD Reason For Visit: SBO Diagnosis Discharge Diagnosis (1) S/P laparotomy with lysis of adhesions: Status: Acute Code(s): Z98.890 - Other specified postprocedural states (2) Postoperative ileus: Status: Acute Code(s): K91.89 - Other postprocedural complications and disorders of digestive system; K56.7 - Ileus, unspecified Plan Patient tolerated transitional diet plan to DC home Plan to have patient follow-up early next week for staple removal?patient is aware I will be out Lori Nuñez M.D. Pager: [phone] [facility] [address] [place] [address], [facility], [address] [place] [id number] Office: [phone] Medications at Discharge Home Medications lisinopril 10 mg tablet 10 mg PO DAILY BP 01/08/15 multivitamin with folic acid 400 mcg tablet (Thera) 1 tab PO DAILY vitamin 01/08/15 calcium 600 mg (as carbonate)-vitamin D3 12.5 mcg (500 unit) capsule (Calcium with Vit D3) 1 cap PO DAILY vitamin 05/12/24 tramadol 50 mg tablet 50 mg PO Q6H PRN pain #7 tabs 10/26/25 Hospital Course Operations - (Ex lap, extensive lysis of adhesions) Procedures None Summary of Care Provided Minutes Spent on Discharge: 15 Hospital Course: Patient presented to the ER due to nausea vomiting abdominal pain was found to have a bowel obstruction and had NG placed. This did not resolve with conservative management patient did go to the OR for laparoscopy, converted to laparotomy and extensive lysis of adhesions. Patient continued to have the NG until she had bowel function return. Patient was able to tolerate a diet and be DC'd to home. Plan to follow-up in office for staple removal early next week. Weight / BMI Weight Weight: 109 lb 7.987 oz Body Mass Index (BMI) 20.0 ABG / Lab / Microbiology Data 10/24/25 05:16 10/24/25 05:16 D/C Instructions May shower in (days): 1 Call your doctor if your incision/area has: Continuous Slow Oozing, Sudden Increased Bleeding, Increased Pain/ Swelling, Increased Redness, Foul Smelling Discharge and Swelling at the incision site Call your doctor if you observe: Fever of 101 or Higher Cleanse incision/area with: Soap & Water Additional Dressing/Incision Instructions: Steri-Strips will fall off in 7 to 10 days, if they do not fall off okay to remove after 10 days. DC O2, CPAP, BIPAP Needs Home O2 Discharge instructions: No Please Follow Up With: Lori Nuñez MD When: Call the office for a follow-up appointment early next week with one of my partners for staple removal; after 5 PM and on the weekends call [phone] with any concerns. Meaningful Use Info Meaningful Use Meaningful Use Diagnoses (Choose all that apply): None applicable Discharge Plan Admission Admit Date/Time: 10/19/25 13:55 Attending Provider: Lori Nuñez Primary Care Provider: Ashley Richardson Discharge Orders/Prescriptions Prescriptions: New tramadol 50 mg tablet 50 mg PO Q6H PRN (Reason: pain) Qty: 7 0RF Continued lisinopril 10 MG tablet 10 mg PO DAILY multivitamin with folic acid [Thera] 1 TABLET tablet 1 tab PO DAILY calcium carbonate-vitamin D3 [Calcium 600 with Vitamin D3] 600 mg-12.5 mcg (500 unit) capsule 1 cap PO DAILY Patient Comments: pt takes a vitamin d with calcium but unsure of strength Referrals / Follow Up: Ashley Richardson MD [Primary Care Provider, Internal Medicine] Disposition Disposition (needs filled in before D/C Order can be placed): Home, Self Care
[2025-10-26 10:46] VITALS: BP 128/74; PULSE 74; RESP 18; TEMP 36.8; O2SAT 94
--- NOTE | 2025-10-26 11:20 | NURSING ---
This RN took over care at this time
[2025-10-26 13:17] VITALS: BP 132/70; PULSE 81; RESP 16; TEMP 36.6; O2SAT 92
== END 2025-10-26 14:29 | disposition home or self-care (01) | DRG 336 ==
LOC: ED 13:58 → MS3 14:15
PROVIDERS: Admitting Provider Surgery; Emergency Provider Emergency Medicine; PCP Internal Medicine; Visit Provider Surgery
PROC: 0DN80ZZ Release Small Intestine, Open Approach (ICD-10-PCS; CPT 49320; principal; 2025-10-20 13:00)
DX: K56.50 Intestinal adhesions [bands], unspecified as to partial versus complete obstruction (principal); K91.89 Other postprocedural complications and disorders of digestive system; E87.6 Hypokalemia; I10 Essential (primary) hypertension; F17.200 Nicotine dependence, unspecified, uncomplicated; K56.7 Ileus, unspecified; Z53.31 Laparoscopic surgical procedure converted to open procedure; Z90.49 Acquired absence of other specified parts of digestive tract; Z87.19 Personal history of other diseases of the digestive system; Z79.899 Other long term (current) drug therapy
CPT/HCPCS: 36415; 74018; 74177; 74250; 80048; 80053; 81001; 83605; 83690; 83735; 84132; 85025; 94668; 94762; 99285; 99406; Q9967; A4216; J2405